=== PATIENT | female | born 1975 | race African-American/Black ===

== ENCOUNTER 2023-03-10 13:41 | Outpatient (AMB) | payer OTHER, SELFPAY ==
--- NOTE | 2023-03-10 14:17 | MHC.PC.OV ---
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 By AG~R/S Provider out Intake Note: pt does not remember her last pap pt has not had a mammo pt denies surgical hx Is last menstrual period known: Yes Last menstrual period: 02/16/23 Allergies Penicillins Allergy (Intermediate, Verified 03/10/23 23:43) Rash Medication List - Last Reconciled 03/10/23 by Mady Boothe MD lisinopril-hydrochlorothiazide 10-12.5 mg 1 tab PO DAILY metformin 1,000 mg PO BID metoprolol tartrate 50 mg PO BID Tobacco use date assessed: 03/10/23 Dental Screening Dental Screen Date: 03/10/23 Did you have a dental visit in the last 12 months?: No Did you have a dental problem in the last 6 months where you did not have access to dental care?: No Was dental information given to patient?: Patient has dentist HPI 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 No medical records available for review at present. She has hypertension currently on metoprolol and lisinopril-HCTZ, blood pressure today however is not controlled at 150/90. Takes metformin at 1000 mg per tablet taken 1 tablet twice a day for diabetes mellitus ,? Control. Complains of having intermittent episodes of diarrhea when taking metformin. He has not been checking her blood sugar at home, and has not been seen for diabetes retinopathy exam for quite some time now. Patient states that she has also been followed by Dr. Imelda Cordova for bilateral renal mass, benign per patient. [facility] Medical History (Updated 03/11/23 @ 00:01 by Mady Boothe MD) Type 2 diabetes mellitus with hyperglycemia, without long-term current use of insulin Bilateral renal masses Hypertension Hyperlipidemia Family History (Updated 03/10/23 @ 23:53 by Mady Boothe MD) Mother Mental health disorder Diabetes mellitus Father Diabetes mellitus Other Substance use disorder Social History Housing: Apartment Patient Tobacco Use Status: Never used Tobacco e-Cigarette/Vaping Use: Never Used Second Hand Smoke Exposure: No service: No Current occupational status: employed Current occupation: [employer] – [place], [place] Current occupational exposures/hazards: Yes Cognitive needs: No Hearing needs: No Vision needs: No Female Reproductive History Menstrual Date of last menstrual period: 02/16/23 control method: none Questionnaire PHQ-9 Over the last 2 weeks, how often have you been bothered by any of the following problems? 1. Little interest or pleasure in doing things: not at all 2. Feeling down, depressed, or hopeless: not at all 3. Trouble falling or staying asleep, or sleeping too much: not at all 4. Feeling tired or having little energy: not at all 5. Poor appetite or overeating: not at all 6. Feeling bad about yourself - or that you are a failure or have let yourself or your family down: not at all 7. Trouble concentrating on things, such as reading the newspaper or watching television: not at all 8. Moving or speaking so slowly that other people could have noticed. Or the opposite - being so fidgety or restless that you have been moving around a lot more than usual: not at all 9. Thoughts that you would be better off or of hurting yourself in some way: not at all Total score: 0 Depression Screening Interpretation: Negative Depression Screening Done: Yes 55193 - PHQ-9 Billing: Yes Source: Developed by Drs. Raz Merchant, Norma Meier, Paul Iglesias and colleagues, with an educational nitin from [employer] Thrive Questionnaire Date Thrive assessed: 03/10/23 I am a: Patient What is your living situation today?: I have a steady place to live Within the past 12 months, did the food you bought not last and you didn't have the money to get more?: Never true Within the past 12 months, did you worry whether your food would run out before you got money to buy more?: Never true Do you have trouble paying for medicines?: No Do you have trouble getting transportation to medical appointments?: No Do you have trouble paying your heating and electricity bill?: No Do you have trouble taking care of your child, family member or friend?: No Do you have trouble with day-to-day activities such as bathing, preparing meals, shopping, managing finances, etc.?: No Are you currently unemployed and looking for a job?: No Are you interested in more education?: No Please select the resources that you would like help with: None JORGE-7 AMB Questionnaire JORGE-7 Date JORGE - 7 assessed: 03/10/23 Feeling nervous, anxious, or on edge: 0 = Not at all Not being able to stop or control worryin = Not at all Worrying too much about different things: 0 = Not at all Trouble relaxin = Not at all Being so restless that it is hard to sit still: 0 = Not at all Becoming easily annoyed or irritable: 0 = Not at all Feeling afraid as if something awful might happen: 0 = Not at all Total JORGE-7 score (0-4 normal; 5-9 mild; 10-14 moderate; 15-21 severe): 0 Source: Developed by Drs. Raz Merchant, Norma Meier, Paul Iglesias and colleagues, with an educational nitin from [employer] JORGE-7 Assessment Billing JORGE-7 Assessment Tool: JORGE-7 Assessment 99707 Review of Systems Const Denies body aches, Denies fatigue, Denies fever(s) and Denies headache(s) Eyes Denies change in vision ENT Denies dizziness, Denies headache(s), Denies nasal congestion and Denies nasal discharge Card Denies chest pain, Denies lightheadedness, Denies palpitations and Denies dyspnea Resp Denies chest congestion, Denies cough, Denies dyspnea and Denies wheezing GI Denies abdominal pain, Denies change in bowel habits and Denies heartburn Denies hematuria, Denies urinary frequency, Denies dysuria and Denies urinary urgency Skin/Breast Denies breast pain, Denies breast mass, Denies lesions and Denies rash Neuro Denies dizziness and Denies headache(s) Endo Denies fatigue, Denies polydipsia and Denies palpitations Juan/Lymph Denies easy bruising Aller/Immun Denies seasonal rhinorrhea and Denies wheezing Physical exam (Primary Care) Vital Signs: Last Vital Signs Pulse 79 03/10/23 14:20 BP 150/90 H 03/10/23 14:20 Pulse Ox 100 03/10/23 14:20 Oxygen Delivery Method Room Air 03/10/23 14:20 BMI result Body Mass Index 29.6 Tobacco/Smoking Status: Tobacco use Status Tobacco use date assessed 03/10/23 03/10/23 14:26 Patient Tobacco Use Status Never used Tobacco 03/10/23 14:26 e-Cigarette/Vaping Use Never Used 03/10/23 14:26 PHQ-9: PHQ-9 Score PHQ-9: Total score 0 03/10/23 14:59 Depression Screening Interpretation: Negative Thrive Assessment: Date of Thrive Assessment Date Thrive assessed 03/10/23 03/10/23 14:32 Const General: comfortable, no acute distress and alert Orientation/consciousness: patient oriented x3 HENMT Ears: external ears normal General nose exam: Normal external nose present Mouth: Normal oral and palatal mucosa present, oropharynx normal and moist mucous membranes Eyes General: appearance normal, both eyes and all related structures Conjunctivae: conjunctivae normal Sclerae: sclerae normal Pupils: Equal, round and reactive pupils present EOM: EOMs intact bilaterally Neck Neck: Yes full ROM, Yes no lymphadenopathy and Yes supple Resp Effort & Inspection: normal respiratory effort Auscultation: clear to auscultation bilaterally Cardio Rate: regular rate Rhythm: regular rhythm Heart sounds: S1 normal heart sound present and S2 normal heart sound present GI Palpation (GI): Soft to palpation, nontender and no masses Auscultation: normal bowel sounds Neuro General: patient oriented x3, gait normal, tone normal, moves all extremities, Normal light touch and pain sensation and no focal motor deficits Cranial nerves: Yes Equal, round and reactive pupils present Cognition (Neuro): normal cognition Extrem General: Yes full ROM and Yes no joint enlargement Psych Appearance: grossly normal and well kempt Mental Status: mental status grossly normal Speech and movement: Normal speech and movement present Affect: normal affect Attitude: cooperative Thought process: Normal thought process present Thought content: Normal thought content present Results AMB Hemoglobin A1c AMB Hemoglobin A1c 8.7 % Last Edit by Irma Huerta CMA on 03/10/23 15:00 Results Reviewed Results Reviewed: Laboratory Last Values Hgb A1c (Clinic) 8.7 % (4.0-6.0) H 03/10/23 14:59 Assessment and Plan Assessment & Plan (1) Hypertension: Code(s): I10 - Essential (primary) hypertension Qualifiers: Hypertension type: primary hypertension Qualified Code(s): I10 - Essential (primary) hypertension Plan: Blood pressure not at goal of less than 130/80. Will continue with metoprolol tartrate 50 mg 1 tablet twice a day and lisinopril-HCTZ 10-12.5 mg 1 tablet daily in a.m.. Reinforced importance of following a low sodium diet, getting regular exercise, and lowering stress levels. Return to the clinic in 1 month for follow-up blood pressure. Labs ordered today to check compressive metabolic panel, fasting lipid panel (2) Type 2 diabetes mellitus with hyperglycemia, without long-term current use of insulin: Code(s): E11.65 - Type 2 diabetes mellitus with hyperglycemia Plan: Hemoglobin A1c today is at 8.7%. Will continue on metformin 1000 mg per tablet taken 1 tablet twice a day and added Jardiance 25 mg per tablet to take 1 tablet in a.m. an hour before breakfast or before taking medications. Labs ordered today for compressive metabolic panel, fasting lipid panel, urine for microalbuminuria screening patient declined getting any vaccines (3) Bilateral renal masses: Comment: Sees Dr. Imelda Cordova, advised to get yearly MRIs Code(s): N28.89 - Other specified disorders of kidney and ureter Plan: Followed by Dr. Imelda Cordova, r urology copy of consult report requested Plan Copy of consult report requested from previous PCP at [place] and from her urologist, Dr. Cordova Orders: Orders Microalbumin, Random (w Creat) 03/10/23 E11.9 - Type 2 diabetes mellitus without complications, E78.5 - Hyperlipidemia, unspecified, I10 - Essential (primary) hypertension AMB Hemoglobin A1c 03/10/23 E11.9 - Type 2 diabetes mellitus without complications, E78.5 - Hyperlipidemia, unspecified, I10 - Essential (primary) hypertension Comprehensive [place]. Panel Fast 03/10/23 E11.9 - Type 2 diabetes mellitus without complications, E78.5 - Hyperlipidemia, unspecified, I10 - Essential (primary) hypertension Lipid Panel 03/10/23 E11.9 - Type 2 diabetes mellitus without complications, E78.5 - Hyperlipidemia, unspecified, I10 - Essential (primary) hypertension Medications: New metoprolol tartrate 50 mg PO BID 3 months 180 tabs 0RF empagliflozin (Jardiance) 25 mg PO QAM 90 tabs 1RF E11.65 - Type 2 diabetes mellitus with hyperglycemia lisinopril-hydrochlorothiazide 10-12.5 mg 1 tab PO DAILY 90 tabs 1RF metformin 1,000 mg PO BID 3 months 180 tabs 1RF Coding Level of Care Code New Pt Level 3 (49220) Diagnoses Primary hypertension I10 Hypertension type: primary hypertension Type 2 diabetes mellitus with hyperglycemia, without long-term current use of insulin E11.65 Bilateral renal masses N28.89 Additional Codes JORGE-7 Assessment Billing - JORGE-7 Assessment Tool: JORGE-7 Assessment 80622 ([id number])
[2023-03-10 14:20] VITALS: BP 150/90; PULSE 79; O2SAT 100; BMI 29.6
== END 2023-03-10 15:31 | disposition home or self-care (01) ==
PROVIDERS: PCP Internal Medicine; Visit Provider Internal Medicine
DX: E11.9 Type 2 diabetes mellitus without complications (principal); E78.5 Hyperlipidemia, unspecified; I10 Essential (primary) hypertension
CPT/HCPCS: 83036; 99203

== ENCOUNTER 2023-03-14 15:32 | Emergency (ER) | payer OTHER, SELFPAY ==
[2023-03-14 16:29] VITALS: BP 164/96; PULSE 84; RESP 18; TEMP 37.1; O2SAT 100; BMI 30.1
--- NOTE | 2023-03-14 17:16 | ED.MEDCLEAR ---
HPI - Medical Clearance General Chief complaint: Body Fluid Exposure Stated complaint: needle stick Time Seen by Provider: 03/14/23 15:38 Source: patient and RN notes reviewed Mode of arrival: ambulatory Limitations: no limitations History of Present Illness HPI Narrative: This is a 47-year-old female, with a history of diabetes, hypertension, hyperlipidemia, and bilateral renal masses (benign, currently followed by PCP), presenting to the emergency department after needlestick. 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 She immediately rinse the area with soap and water, and allowed the area to bleed. She states that this patient that she was working with has a history of hepatitis-C, MRSA, and IV drug abuse, unsure about HIV status. No other complaints or concerns at this time. Onset (ago): minute(s) Place: work Alleged Intoxication: No Compliant with Home Medications: Yes Associated Symptoms: denies other symptoms Treatments Prior to Arrival: none Related Information Previous Rx's Medication Instructions Recorded empagliflozin 25 mg tablet 25 mg PO QAM #90 tabs 03/10/23 (Jardiance) lisinopril 10 1 tab PO DAILY #90 tabs 03/10/23 mg-hydrochlorothiazide 12.5 mg tablet metformin 1,000 mg tablet 1,000 mg PO BID 3 months #180 tabs 03/10/23 metoprolol tartrate 50 mg tablet 50 mg PO BID 3 months #180 tabs 03/10/23 Allergies Allergy/AdvReac Type Severity Reaction Status Date / Time Penicillins Allergy Intermediate Rash Verified 03/10/23 23:43 Review of Systems Review of Systems: Yes all other systems are reviewed and are negative [facility]LY [facility], [facility] Past Medical History Attestation statement: The following information was validated with the patient. Medical History Type 2 diabetes mellitus with hyperglycemia, without long-term current use of insulin Bilateral renal masses Hypertension Hyperlipidemia Family History Family History Mother Mental health disorder Diabetes mellitus Father Diabetes mellitus Other Substance use disorder Social History Housing: Apartment Patient Tobacco Use Status: Never used Tobacco e-Cigarette/Vaping Use: Never Used Second Hand Smoke Exposure: No Advance Directives: No Advance Directives Information Provided: No service: No Current occupational status: employed [place] [employer] [place] Current occupational exposures/hazards: Yes Cognitive needs: No Hearing needs: No Vision needs: No Physical Exam Vital Signs: Vital Signs: Last Vital Signs Temp 98.7 F 03/14/23 16:29 Pulse 84 03/14/23 16:29 Resp 18 03/14/23 16:29 BP 164/96 H 03/14/23 16:29 Pulse Ox 100 03/14/23 16:29 O2 Del Method Room Air 03/14/23 16:29 BMI result Body Mass Index 30.1 Course Reevaluation(s) Reevaluation #1: 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 I discussed this with patient does not want to start the antiviral treatment given this. Labs were drawn. Advised to follow-up with Infectious Disease and or primary care physician to ensure good follow-up. Given return precautions. Patient understands agrees with plan. Patient stable discharge Medications Administered Discontinued Medications Generic Name Dose Route Start Last Admin Trade Name Freq PRN Reason Stop Dose Admin Raltegravir/Emtricitabine/Tenofovir 1 kit 03/14/23 17:01 03/14/23 19:03 Post Exposure Medication Kit PO 03/14/23 17:02 Not Given ONCE ONE Medical Decision Making Medical Decision Making MDM Narrative: This is a 47-year-old female presenting to the emergency department for needlestick injury which occurred at work today. On arrival, patient mildly hypertensive at 164/96. Patient stuck her right thumb with a needle that was used on a patient positive for hepatitis-C, MRSA, and uses IV drugs. 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 Long discussion about post exposure prophylaxis with patient. She will obtain HIV status from the patient. I advised her to take the prophylaxis medication megha however she was able to contact her nursing mails supervisor and states that patient tested negative for. Differential Diagnosis Differential Diagnoses: The differential diagnosis associated with the presentation includes Laceration, puncture wound, needlestick Lab Data 03/14/23 18:35 03/14/23 18:35 Labs: Lab Results 03/14/23 Range/Units 18:35 WBC 7.6 (4.8-10.8) X10*3/uL RBC 4.96 (4.20-5.50) X10*6/uL Hgb 10.8 L (12.0-16.0) g/dl Hct 33.9 L (37.0-47.0) % MCV 68.3 L (80.0-98.0) fL MCH 21.8 L (27.0-33.0) pg MCHC 31.9 (31.0-35.0) g/dl RDW 17.1 H (11.0-16.0) % Plt Count 342 (160-400) X10*3/uL MPV 9.6 (9.4-12.3) fL Immature Gran % (Auto) 0.4 (0.0-0.4) % Neut % (Auto) 65.8 (45-73) % Lymph % (Auto) 25.0 (20-40) % H[place]eth % (Auto) 6.3 (2-11) % Eos % (Auto) 2.0 (0-4) % Baso % (Auto) 0.5 (0-2) % Lymph # (Auto) 1.9 (1.2-4.9) X10*3/uL [place] # (Auto) 0.5 (0.1-1.2) X10*3/uL Eos # (Auto) 0.2 (0.0-0.4) X10*3/uL Baso # (Auto) 0.0 (0.0-0.2) X10*3/uL Abs Immat Gran (auto) 0.03 (0.00-0.03) X10*3/uL Absolute Neuts (auto) 5.0 (2.0-8.3) x10*3/uL Absolute Nucleated RBC 0.000 (0.0-0.012) X10*3/uL Nucleated RBC % (auto) 0.0 (0.0-0.2) /100WBC Sodium 138 (135-145) mmol/L Potassium 3.9 (3.3-5.1) mmol/L Chloride 107 (96-108) mmol/L Carbon Dioxide 22 (22-29) mmol/L Anion Gap 13 (12-20) BUN 10 (9-16) mg/dL Creatinine 0.78 (0.5-1.4) mg/dL Estim Creat Clear Calc 86.7 Estimated GFR > 60 Random Glucose 119 H (60-115) mg/dL Calcium 10.0 (8.4-10.2) mg/dL Total Bilirubin 0.4 (0.0-1.0) mg/dL Direct Bilirubin 0.2 (0.0-0.5) mg/dL AST 24 (5-31) U/L ALT 29 (0-31) U/L Alkaline Phosphatase 61 (39-117) U/L Total Protein 7.9 (6.5-8.0) g/dL Albumin 4.1 (3.5-5.0) g/dL Lipase 25 (8-78) U/L Discharge Plan Discharge Clinical Impression: Exposure to body fluid due to accidental needlestick injury Patient Disposition: Home, Self-Care Instructions: Needle Stick Injuries (ED) Additional Instructions: He presented to the emergency department after needlestick injury which occurred today. We willard blood for basic labs, as well as hepatitis panel, and HIV. You declined antiviral treatment today. Please follow-up with your primary care physician. Please follow-up with Infectious Disease, call to make an appointment. If any new or worsening symptoms occur, please return for re-evaluation. Keep wound clean and dry. Watch for any signs of infection including but not limited to redness, swelling, drainage, fevers or chills. Prescriptions: No Action Jardiance 25 mg tablet 25 mg PO QAM Qty: 90 1RF lisinopril-hydrochlorothiazide 10-12.5 mg tablet 1 tab PO DAILY Qty: 90 1RF metformin 1,000 mg tablet 1,000 mg PO BID 90 Days Qty: 180 1RF metoprolol tartrate 50 mg tablet 50 mg PO BID 90 Days Qty: 180 0RF [place] [facility] [place] Group] Interventions: ED Discharge Assessment Last Done: 03/14/23 19:03 Discharge Date/Time: 03/14/23 19:04
[2023-03-14 18:44] LABS: MANUAL DIFF FLAG NO
[2023-03-14 18:46] LABS: Basophils Percent Auto 0.5 % (0-2); Eosinophils Absolute Auto 0.2 X10*3/uL (0.0-0.4); Hematocrit 33.9 % (37.0-47.0); Hemoglobin 10.8 g/dl (12.0-16.0); Imm Gran Abs Auto 0.03 X10*3/uL (0.00-0.03); Imm Gran Pct Auto 0.4 % (0.0-0.4); Lymphocytes Absolute Auto 1.9 X10*3/uL (1.2-4.9); Mean Corpuscular HGB Conc 31.9 g/dl (31.0-35.0); Mean Corpuscular Hemoglobin 21.8 pg (27.0-33.0); Mean Corpuscular Volume 68.3 fL (80.0-98.0); Mean Platelet Volume 9.6 fL (9.4-12.3); Monocytes Absolute Auto 0.5 X10*3/uL (0.1-1.2); Monocytes Percent Auto 6.3 % (2-11); Neutrophils Percent Auto 65.8 % (45-73); Platelet Count 342 X10*3/uL (160-400); Red Blood Count 4.96 X10*6/uL (4.20-5.50); Red Cell Distribution Width 17.1 % (11.0-16.0); White Blood Count 7.6 X10*3/uL (4.8-10.8)
[2023-03-14 18:59] LABS: Alanine Aminotransferase 29 U/L (0-31); Albumin Level 4.1 g/dL (3.5-5.0); Alkaline Phosphatase 61 U/L (39-117); Anion Gap 13 (12-20); Aspartate Amino Transferase 24 U/L (5-31); Bilirubin Direct 0.2 mg/dL (0.0-0.5); Bilirubin Total 0.4 mg/dL (0.0-1.0); Blood Urea Nitrogen 10 mg/dL (9-16); Carbon Dioxide 22 mmol/L (22-29); Chloride 107 mmol/L (96-108); Creatinine Clr Calc Pharmacy 86.7; Estimated Glomerular Filt Rate > 60; Glucose Random 119 mg/dL (60-115); Lipase 25 U/L (8-78); Potassium 3.9 mmol/L (3.3-5.1); Sodium 138 mmol/L (135-145); Total Protein 7.9 g/dL (6.5-8.0)
[2023-03-17 08:14] LABS: HBS Num1 8.78 mIU/mL (0-7.99); HBc Num1 0.11 S/CO (0.00-0.79); HBsAGNum1 0.33 S/CO (0.00-0.99); HIV Num 1 1.15 S/CO (0.00-0.99); Hepatitis B Core Antibody Nonreactive (Nonreactive); Hepatitis B Surface Antigen Negative (Negative); ~HepC Num1 0.45 S/CO (0.00-0.79); ~Hepatitis C Antibody Nonreactive (Nonreactive)
[2023-03-17 09:53] LABS: HBS Num2 9.17 mIU/mL (0-7.99); ~Hepatitis B Surface Antibody GRAYZONE (Nonreactive)
[2023-03-17 10:05] LABS: HIV AB/AG Nonreactive (Nonreactive); HIV Num 2 0.05 S/CO; HIV Num 3 0.06 S/CO
== END 2023-03-14 19:04 | disposition home or self-care (01) ==
PROVIDERS: Physician Assistant Medical; Emergency Provider Emergency Medicine Emergency Medical Services; PCP Internal Medicine
DX: Z77.21 Contact with and (suspected) exposure to potentially hazardous body fluids (principal); Z79.899 Other long term (current) drug therapy
CPT/HCPCS: 36415; 80048; 80076; 83690; 85025; 86704; 86706; 86803; 87340; 87389; 99282; 99283

== ENCOUNTER 2023-04-07 12:53 | Outpatient (REF) | payer OTHER, SELFPAY ==
[2023-04-07 16:32] LABS: Alanine Aminotransferase 22 U/L (0-31); Albumin Level 3.9 g/dL (3.5-5.0); Alkaline Phosphatase 61 U/L (39-117); Anion Gap 12 (12-20); Aspartate Amino Transferase 18 U/L (5-31); Bilirubin Total 0.6 mg/dL (0.0-1.0); Blood Urea Nitrogen 10 mg/dL (9-16); Carbon Dioxide 22 mmol/L (22-29); Chloride 107 mmol/L (96-108); Cholesterol 93 mg/dL (<200); Estimated Glomerular Filt Rate > 60; Glucose Fasting 135 mg/dL (60-99); HDL Cholesterol 47 mg/dL (>40); LDL Cholesterol Calculated 40 mg/dL (<100); Potassium 3.6 mmol/L (3.3-5.1); Sodium 137 mmol/L (135-145); Total Protein 7.2 g/dL (6.5-8.0); Triglycerides 30 mg/dL (<150)
[2023-04-07 17:03] LABS: Creatinine Urine 94.74 mg/dL; Microalbum/Creatinine Ratio Ur 5.2 ug/mg cr (<30)
== END 2023-04-07 12:54 | disposition home or self-care (01) ==
LOC: HO.HMGCLDS 12:53
PROVIDERS: PCP Internal Medicine; Visit Provider Internal Medicine
DX: E11.9 Type 2 diabetes mellitus without complications (principal); I10 Essential (primary) hypertension; E78.5 Hyperlipidemia, unspecified
CPT/HCPCS: 36415; 80053; 80061; 82043; 82570

== ENCOUNTER 2023-04-09 13:36 | Outpatient (AMB) | payer OTHER, SELFPAY ==
[2023-04-09 13:41] VITALS: BP 160/108; PULSE 87; O2SAT 100; BMI 29.4
--- NOTE | 2023-04-09 13:41 | MHC.PC.OV ---
Vital Signs 04/09/23 13:41 Height 5 ft 3 in Weight 166 lb 2 oz BMI 29.4 BP 160/108 H Blood Pressure Location Lt brachial Position Sitting Pulse 87 Pulse Source Pulse Oximeter Pulse Oximetry (%) 100 Oxygen Delivery Method Room Air Intake Visit Reasons: one month fu Intake Note: Pt is here to follow up for her lab results Allergies Penicillins Allergy (Intermediate, Verified 04/09/23 13:58) Rash Medication List - Last Reconciled 04/09/23 by Mady Boothe MD empagliflozin (Jardiance) 25 mg PO QAM lisinopril-hydrochlorothiazide 10-12.5 mg 1 tab PO DAILY metformin 1,000 mg PO BID 3 months metoprolol tartrate 50 mg PO BID 3 months Tobacco use date assessed: 04/09/23 HPI one month fu HPI Details 47-year-old Lady with diabetes mellitus and hypertension , here today for her 1 month follow-up. She was started on empagliflozin 25 mg daily in a.m. but still has not started taking it yet. Has only been taking metformin a 1000 mg twice a day, but complains of abdominal cramping and having passage of soft watery stools ever since she started taking metformin. Has not really been compliant with recommended diet nor has she been getting any exercise. Blood pressure today is elevated. The patient already taking lisinopril-HCTZ 10-12.5 mg daily in a.m. and has been taking metoprolol tartrate 50 mg 1 tablet twice a day. Denies any headache, no chest pain, palpitations, shortness of breath, no nausea or vomiting reported. Patient also requesting a referral to an OBGYN for further evaluation management myomatous uterus. She presented to the ER at [facility] approximately a month ago complaining of abdominal pain. CT of abdomen and pelvis were obtained which showed multiple leiomyoma in the uterus, largest measuring 4.4 x 3.3 by 3.9 cm. She has been having heavy menstrual bleed and occasionally would get 2 periods in a month. She was being seen and followed by hematology as she has sickle cell trait, recent labs done showed presence of microcytic hypochromic anemia. Patient has child who has to sickle cell trait and also was diagnosed to have beta thalassemia. [facility] Medical History Leiomyoma of body of uterus (sickle cell trait) Microcytic hypochromic anemia Type 2 diabetes mellitus with hyperglycemia, without long-term current use of insulin Bilateral renal masses Hypertension Hyperlipidemia Family History Mother Mental health disorder Diabetes mellitus Father Diabetes mellitus Other Substance use disorder Social History Housing: Apartment Patient Tobacco Use Status: Never used Tobacco e-Cigarette/Vaping Use: Never Used Second Hand Smoke Exposure: No service: No Current occupational status: employed Current occupation: [employer] – [place] Current occupational exposures/hazards: Yes Cognitive needs: No Hearing needs: No Vision needs: No Questionnaire Thrive Questionnaire Date Thrive assessed: 03/10/23 JORGE-7 AMB Questionnaire JORGE-7 Date JORGE - 7 assessed: 03/10/23 Source: Developed by Drs. Raz Merchant, Norma Meier, Paul Iglesias and colleagues, with an educational nitin from [employer]. Review of Systems Const Denies body aches, Denies fever(s) and Denies headache(s) Eyes Denies change in vision ENT Denies dizziness, Denies headache(s), Denies nasal congestion and Denies nasal discharge Card Denies chest pain, Denies lightheadedness, Denies palpitations and Denies dyspnea Resp Denies chest congestion, Denies cough, Denies dyspnea and Denies wheezing GI Denies change in bowel habits and Denies heartburn Denies hematuria, Denies urinary frequency, Denies dysuria and Denies urinary urgency Musc Reports no additional complaints Neuro Denies dizziness and Denies headache(s) Endo Denies polydipsia and Denies palpitations Juan/Lymph Denies easy bruising Aller/Immun Denies seasonal rhinorrhea and Denies wheezing Physical exam (Primary Care) Vital Signs: Last Vital Signs Pulse 87 04/09/23 13:41 BP 160/108 H 04/09/23 13:41 Pulse Ox 100 04/09/23 13:41 Oxygen Delivery Method Room Air 04/09/23 13:41 BMI result Body Mass Index 29.4 Tobacco/Smoking Status: Tobacco use Status Tobacco use date assessed 04/09/23 04/09/23 13:47 Patient Tobacco Use Status Never used Tobacco 04/09/23 13:47 e-Cigarette/Vaping Use Never Used 04/09/23 13:47 Thrive Assessment: Date of Thrive Assessment Date Thrive assessed 03/10/23 04/09/23 13:47 Const General: comfortable, no acute distress and alert Orientation/consciousness: patient oriented x3 HENMT Ears: external ears normal Mouth: Normal oral and palatal mucosa present and moist mucous membranes Eyes General: appearance normal, both eyes and all related structures Conjunctivae: conjunctivae normal Sclerae: sclerae normal Pupils: Equal, round and reactive pupils present EOM: EOMs intact bilaterally Neck Neck: Yes full ROM, Yes no lymphadenopathy and Yes supple Resp Effort & Inspection: normal respiratory effort Auscultation: clear to auscultation bilaterally Cardio Rate: regular rate Rhythm: regular rhythm Heart sounds: S1 normal heart sound present and S2 normal heart sound present GI Palpation (GI): Soft to palpation, nontender and no masses Auscultation: normal bowel sounds Neuro General: patient oriented x3, gait normal, tone normal, moves all extremities, Normal light touch and pain sensation and no focal motor deficits Cranial nerves: Yes Equal, round and reactive pupils present Cognition (Neuro): normal cognition Extrem General: Yes full ROM and Yes no joint enlargement Psych Appearance: grossly normal and well kempt Mental Status: mental status grossly normal Speech and movement: Normal speech and movement present Affect: normal affect Attitude: cooperative Thought process: Normal thought process present Thought content: Normal thought content present Assessment and Plan Assessment & Plan (1) (sickle cell trait): Code(s): D57.3 - Sickle-cell trait Plan: Hematology consult obtained (2) Microcytic hypochromic anemia: Code(s): D50.9 - Iron deficiency anemia, unspecified Plan: Hematology consult obtained (3) Type 2 diabetes mellitus with hyperglycemia, without long-term current use of insulin: Code(s): E11.65 - Type 2 diabetes mellitus with hyperglycemia Plan: Patient and advised to start taking Jardiance in a.m., decrease metformin dose in the morning to 500 mg and keep the 1000 mg tablet at dinner time. Reminded to get her diabetes retinopathy screening, up-to-date with her microalbumin screening. Advised to get her flu shot, COVID booster, pneumonia vaccination, but patient declined getting any vaccines. Schedule follow-up appointment in 3 month (4) Hypertension: Code(s): I10 - Essential (primary) hypertension Qualifiers: Hypertension type: primary hypertension Qualified Code(s): I10 - Essential (primary) hypertension Plan: Blood pressure elevated today, goal is less than 130/90. Continue with losartan-HCTZ but increase dose to 20-12.5 mg in a.m.. Continue with metoprolol tartrate , 50 mg 1 tablet twice a day. Schedule nurse navigator visit to check blood pressure in 1-2 weeks (5) Hyperlipidemia: Code(s): E78.5 - Hyperlipidemia, unspecified Qualifiers: Hyperlipidemia type: mixed hyperlipidemia Qualified Code(s): E78.2 - Mixed hyperlipidemia Plan: Hi advised to continue adhering to a low-cholesterol diet, and getting regular exercise. Repeat another fasting lipid panel in June 2023 (6) Leiomyoma of body of uterus: Comment: Multiple leiomyomas the uterus, largest measuring 4.4 x 3.3 x 3.[address] seen on CT abdomen and pelvis done in [facility] 03/03/2023 Code(s): D25.9 - Leiomyoma of uterus, unspecified Plan: Has been having heavy menstrual bleeding and irregular cycles. Referred to strategic consultant at [facility] [place] for further evaluation management of multiple leiomyomas in uterus Orders: Orders Hemoglobin A1c 06/20/23 E11.65 - Type 2 diabetes mellitus with hyperglycemia, E78.5 - Hyperlipidemia, unspecified, I10 - Essential (primary) hypertension Alanine Aminotransferase 06/20/23 E11.65 - Type 2 diabetes mellitus with hyperglycemia, E78.5 - Hyperlipidemia, unspecified, I10 - Essential (primary) hypertension Basic Metabolic Panel Fasting 06/20/23 E11.65 - Type 2 diabetes mellitus with hyperglycemia, E78.5 - Hyperlipidemia, unspecified, I10 - Essential (primary) hypertension Lipid Panel 06/20/23 E11.65 - Type 2 diabetes mellitus with hyperglycemia, E78.5 - Hyperlipidemia, unspecified, I10 - Essential (primary) hypertension Aspartate Amino Transferase 06/20/23 E11.65 - Type 2 diabetes mellitus with hyperglycemia, E78.5 - Hyperlipidemia, unspecified, I10 - Essential (primary) hypertension Referrals Hematology & Oncology Referral D50.9 - Iron deficiency anemia, unspecified, D57.3 - Sickle-cell trait 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 D25.9 - Leiomyoma of uterus, unspecified Medications: New lisinopril-hydrochlorothiazide 20-12.5 mg 1 tab PO DAILY 90 tabs 1RF Discontinued lisinopril-hydrochlorothiazide 10-12.5 mg Discontinued Reason: Doctor's Order 1 tab PO DAILY 90 tabs 1RF Coding Level of Care Code Est Pt Level 4 (54188) Diagnoses (sickle cell trait) D57.3 Microcytic hypochromic anemia D50.9 Type 2 diabetes mellitus with hyperglycemia, without long-term current use of insulin E11.65 Primary hypertension I10 Hypertension type: primary hypertension Mixed hyperlipidemia E78.2 Hyperlipidemia type: mixed hyperlipidemia Leiomyoma of body of uterus D25.9
== END 2023-04-09 14:23 | disposition home or self-care (01) ==
PROVIDERS: PCP Internal Medicine; Visit Provider Internal Medicine
DX: D57.3 Sickle-cell trait (principal); D50.9 Iron deficiency anemia, unspecified; E11.65 Type 2 diabetes mellitus with hyperglycemia; I10 Essential (primary) hypertension; E78.2 Mixed hyperlipidemia; D25.9 Leiomyoma of uterus, unspecified
CPT/HCPCS: 99214

== ENCOUNTER 2023-04-28 15:57 | Outpatient (REF) | payer OTHER, SELFPAY ==
[2023-04-28 17:19] LABS: Appearance Urine Clear; Color Urine Yellow; Glucose Urine UA >=1000 mg/dL (Negative); Leukocyte Esterase Urine Negative (Negative); Nitrite Urine Negative (Negative); PH 5.5 (5.0-9.0); Specific Gravity - Urine 1.025 (1.005-1.025); UMIC TRIGGER UACC YES; Urine Blood Negative (Negative); Urine Ketones Negative (Negative); Urine Protein Negative (Neg-Trace)
[2023-04-28 17:39] LABS: Bacteria Urine None Seen (None Seen); Hyaline Casts Urine 0-2 /LPF (0-2); RBC Urine 0-2 /HPF (0-2); Squamous Epithelial Cell Urine 0-2 /HPF (0-2); WBC Urine 0-5 /HPF (0-5)
== END 2023-04-28 15:58 | disposition home or self-care (01) ==
LOC: HO.LAB 15:57
PROVIDERS: PCP Internal Medicine; Visit Provider Internal Medicine
DX: R30.0 Dysuria (principal)
CPT/HCPCS: 81001

== ENCOUNTER → 2023-05-14 13:47 | Outpatient (BNV) | payer OTHER, SELFPAY | PROVIDERS: PCP Internal Medicine; Visit Provider Internal Medicine | DX: D50.9 Iron deficiency anemia, unspecified (principal) | CPT/HCPCS: 99204 ==

== ENCOUNTER 2023-06-02 11:08 | Outpatient (REF) | payer OTHER, SELFPAY ==
[2023-06-05 02:38] LABS: HPV mRNA E6/E7 rflx Not Detected (Not Detected)
== END 2023-06-02 11:09 | disposition home or self-care (01) ==
LOC: HO.LNP 11:08
PROVIDERS: PCP Internal Medicine; Visit Provider Obstetrics & Gynecology
DX: Z12.4 Encounter for screening for malignant neoplasm of cervix (principal); Z11.51 Encounter for screening for human papillomavirus (HPV); N93.9 Abnormal uterine and vaginal bleeding, unspecified
CPT/HCPCS: 87624; 88142

== ENCOUNTER 2023-06-02 11:08 | Outpatient (AMB) | payer OTHER, SELFPAY ==
[2023-06-02 11:14] VITALS: BP 100/66; BMI 28.2
--- NOTE | 2023-06-02 11:14 | MHC.OFFVIS ---
Intake Vital Signs 06/02/23 11:14 Height 5 ft 3 in Weight 159 lb BMI 28.2 BP 100/66 Intake Visit Reasons: LEIOMYOMA OF UTERUS/PCP referral Portal Developer: Portal Developer Present (Marsha) Allergies Penicillins Allergy (Intermediate, Verified 06/02/23 11:16) Rash Is last menstrual period known: Yes Last menstrual period: 05/18/23 HPI HPI Comments History of Present Illness Details Presenting referred from PCP regarding leiomyomas seen on imaging at [facility] Emergency room, report not available. The patient reports heavy and irregular menstrual cycles associated with passage of blood clots and pelvic cramping. Last co testing and mammogram were many years ago [facility] Medical History Leiomyoma of body of uterus (sickle cell trait) Microcytic hypochromic anemia Type 2 diabetes mellitus with hyperglycemia, without long-term current use of insulin Bilateral renal masses Hypertension Hyperlipidemia Family History Mother Mental health disorder Diabetes mellitus Father Diabetes mellitus Other Substance use disorder Social History Housing: Apartment Patient Tobacco Use Status: Never used Tobacco e-Cigarette/Vaping Use: Never Used Second Hand Smoke Exposure: No service: No Current occupational status: employed Current occupation: [employer] [place] Current occupational exposures/hazards: Yes Cognitive needs: No Hearing needs: No Vision needs: No Female Reproductive History Menstrual Date of last menstrual period: 05/18/23 Total pregnancies: 3 Full term: 3 Number of Living Children: 3 Review of Systems Const All systems reviewed & are unremarkable except as noted in HPI and below Card Reports as per HPI Resp Reports as per HPI GI Reports as per HPI and Reports no additional complaints Reports as per HPI Physical Exam Const General: cooperative, healthy appearing and comfortable Chest Chest palpation & inspection: normal inspection of the chest and normal palpation of entire chest wall Breast/axilla inspection: normal inspection of the breasts and normal inspection of the axillae Breast/axilla palpation: normal palpation of the breasts, normal palpation of the axillae and no axillary lymphadenopathy Resp Effort & Inspection: normal respiratory effort Auscultation: clear to auscultation bilaterally Percussion: percussion normal Cardio Palpation: normal PMI Rate: regular rate Rhythm: regular rhythm Heart sounds: no murmurs and no rubs Peripheral pulses: Peripheral pulses 2+ throughout GI Inspection: Yes normal to inspection Palpation (GI): Soft to palpation, nontender, no guarding, not rigid and No hepatosplenomegaly present Percussion: Yes normal to percussion Auscultation: normal bowel sounds Rectal Exam - Female: deferred General: Yes bladder normal to palpation External Female Exam: No lesion Speculum Exam - Vagina: normal appearance of the vagina, normal palpation, normal vaginal discharge and not erythematous Speculum Exam - Cervix: normal appearance of the cervix and normal palpation Bimanual exam- vagina & uterus: normal bimanual exam, normal palpation, bladder normal to palpation, consistency normal, normal palpation and enlarged Bimanual Exam- Adnexa, other: normal adnexae, no masses and no tenderness Assessment & Plan Assessment & Plan (1) Abnormal uterine bleeding: Code(s): N93.9 - Abnormal uterine and vaginal bleeding, unspecified Plan: Mammogram ordered, Co testing done, GC and chlamydia taken CBC, TSH, prolactin, FSH/LH, HCG, and pelvic ultrasound ordered. Discussed with the patient the different causes of abnormal bleeding including thyroid disorders, uterine and ovarian pathology, endometrial hyperplasia, carcinoma and other potential causes. Discussed with the patient the work up including CBC (to r/o anemia), TSH, prolactin, FSH/LH, pelvic Ultrasound, endometrial biopsy to r/o endometrial pathology. All questions answered and the patient verbalized understanding. Instructed the patient to schedule an appointment for an endometrial biopsy in 2 weeks. Orders: Orders TSH reflex Free T4 Today N93.9 - Abnormal uterine and vaginal bleeding, unspecified Complete Blood Count no Diff Today N93.9 - Abnormal uterine and vaginal bleeding, unspecified Lutenizing Hormone Today N93.9 - Abnormal uterine and vaginal bleeding, unspecified Follicle Stimulating Hormone Today N93.9 - Abnormal uterine and vaginal bleeding, unspecified Prolactin Today N93.9 - Abnormal uterine and vaginal bleeding, unspecified HCG Quantitative Today N93.9 - Abnormal uterine and vaginal bleeding, unspecified US pelvic and transvaginal Today N93.9 - Abnormal uterine and vaginal bleeding, unspecified MM screening mammo BI Today Z12.31 - Encounter for screening mammogram for malignant neoplasm of breast Coding Level of Care Code New Pt Level 3 (03259) Diagnoses Abnormal uterine bleeding N93.9
== END 2023-06-02 11:55 | disposition home or self-care (01) ==
PROVIDERS: PCP Internal Medicine; Visit Provider Obstetrics & Gynecology
DX: N93.9 Abnormal uterine and vaginal bleeding, unspecified (principal)
CPT/HCPCS: 99203

== ENCOUNTER 2023-06-02 12:07 | Outpatient (REF) | payer OTHER, SELFPAY ==
[2023-06-02 12:42] LABS: Hematocrit 37.8 % (37.0-47.0); Hemoglobin 11.8 g/dl (12.0-16.0); Mean Corpuscular HGB Conc 31.2 g/dl (31.0-35.0); Mean Corpuscular Hemoglobin 21.8 pg (27.0-33.0); Mean Corpuscular Volume 69.9 fL (80.0-98.0); Mean Platelet Volume 9.7 fL (9.4-12.3); Platelet Count 394 X10*3/uL (160-400); Red Blood Count 5.41 X10*6/uL (4.20-5.50); Red Cell Distribution Width 19.6 % (11.0-16.0); White Blood Count 7.3 X10*3/uL (4.8-10.8)
[2023-06-02 13:29] LABS: HCG Quantitative < 2 mIU/mL; TSH reflex Free T4 0.62 uIU/mL (0.32-4.0)
[2023-06-02 17:24] LABS: CT PCR NOT DETECTED (Not Detect.); NG PCR NOT DETECTED (Not Detect.)
[2023-06-03 08:14] LABS: Follicle Stimulating Hormone 2.5 mIU/mL; Lutenizing Hormone 1.2 mIU/mL; Prolactin 10.2 ng/mL
== END 2023-06-02 12:08 | disposition home or self-care (01) ==
LOC: HO.LAB 12:07
PROVIDERS: PCP Internal Medicine; Visit Provider Obstetrics & Gynecology
DX: N93.9 Abnormal uterine and vaginal bleeding, unspecified (principal); Z20.2 Contact with and (suspected) exposure to infections with a predominantly sexual mode of transmission
CPT/HCPCS: 0353U; 83001; 83002; 84146; 84443; 84702; 85027

== ENCOUNTER 2023-06-18 11:38 | Outpatient (REF) | payer OTHER, SELFPAY ==
--- NOTE | ~2023-06-18 | US_ITS ---
EXAMINATION: US PELVIS COMPLETE CLINICAL INFORMATION: Abnormal uterine bleeding; the last menstrual period is not specified. COMPARISON: None. TECHNIQUE: Transabdominal imaging was performed. FINDINGS: The uterus is of normal size and echogenicity, measuring 10.4 x 6.4 x 8.0 cm. The uterus is anteverted and anteflexed. A regular homogeneous endometrium is identified measuring 1.0 cm. There is some prominent endometrial vascularity. FIBROIDS: There are 3 fibroids seen. 1. Location: Rightward fundus, myometrial. Size: 3.5 x 3.3 x 3.3 cm. Fibroid characteristics: Heterogeneously hypoechoic. 2. Location: Mid rightward body, myometrial. Size: 1.8 x 1.7 x 1.9 cm. Fibroid characteristics: Heterogeneously hypoechoic. 3. Location: Upper leftward body, myometrial. Size: 1.9 x 1.6 x 1.8 cm. Fibroid characteristics: Heterogeneously hypoechoic. Both ovaries are of normal size and echogenicity. [The ovaries show normal doppler flow.] The right ovary measures 3.6 x 3.1 x 2.3 cm for a volume of 12.9 mL. The right ovary contains a 2.5 x 2.1 x 2.2 cm benign, simple cyst, which requires no imaging follow-up. The left ovary measures 2.7 x 1.8 x 1.8 cm for a volume of 4.6 mL. A small amount nonspecific free fluid is seen adjacent to the left ovary. No adnexal mass is seen. US/US pelvic and transvaginal IMPRESSION: 1. There are uterine fibroids, as detailed. 2. The endometrial stripe is normal in thickness and shows prominent vascular flow. 3. A small amount nonspecific free fluid is seen adjacent to the left ovary.
== END 2023-06-18 11:39 | disposition home or self-care (01) ==
LOC: HO.US 11:38
PROVIDERS: PCP Internal Medicine; Visit Provider Obstetrics & Gynecology
DX: N93.9 Abnormal uterine and vaginal bleeding, unspecified (principal)
CPT/HCPCS: 76830; 76856

== ENCOUNTER 2023-08-14 11:34 | Outpatient (AMB) | payer OTHER, SELFPAY ==
--- NOTE | 2023-08-14 11:43 | A.OFFPC_ITS ---
Vital Signs 08/14/23 11:55 Height 5 ft 3 in Weight 154 lb BMI 27.3 BP 120/86 Blood Pressure Location Rt brachial Position Sitting Pulse 73 Pulse Source Pulse Oximeter Pulse Oximetry (%) 98 Oxygen Delivery Method Room Air Intake Visit Reasons: Annual PE Intake Note: Pt is here today for her PE Last papsmear 06/03/23 Allergies Penicillins Allergy (Intermediate, Verified 08/14/23 12:09) Rash Medication List - Last Reconciled 08/14/23 by Mady Boothe MD empagliflozin (Jardiance) 25 mg PO QAM FA-vit Zqouk-P-pllt-vitamin D3 0.8-2,000 mg-unit tabs PO ferrous sulfate 325 mg PO DAILY lisinopril-hydrochlorothiazide 20-12.5 mg 1 tab PO DAILY metformin 1,000 mg PO BID 3 months metoprolol tartrate 50 mg PO BID Tobacco use date assessed: 08/14/23 Dental Screening Dental Screen Date: 08/14/23 Did you have a dental visit in the last 12 months?: No Was dental information given to patient?: Patient has dentist HPI Annual PE HPI0 Details 47-year-old Lady with diabetes mellitus type 2, hypertension and history of anemia, here today for her physical exam. She is up-to-date with her cervical cancer screening, done by Dr. Soto earlier this year. Screening mammogram was also ordered by Dr. Soto but patient has not had it done yet and will be schedule. Never had a colonoscopy. She is mildly anemic and her latest hemoglobin A1c done proximally 2 months ago came back at 6.8%, improved as compared to last check. She has received 2 COVID vaccines but does not want to get the booster, she also refuses to get her flu shot and pneumonia vaccine. Has been feeling well with no complaints at present time [facility] Medical History Leiomyoma of body of uterus (sickle cell trait) Microcytic hypochromic anemia Type 2 diabetes mellitus with hyperglycemia, without long-term current use of insulin Bilateral renal masses Hypertension Hyperlipidemia Family History Mother Mental health disorder Diabetes mellitus Father Diabetes mellitus Other Substance use disorder Social History Housing: Apartment Patient Tobacco Use Status: Never used Tobacco e-Cigarette/Vaping Use: Never Used Second Hand Smoke Exposure: No service: No Current occupational status: employed Current occupation: [employer] Current occupational exposures/hazards: Yes Cognitive needs: No Hearing needs: No Vision needs: No Questionnaire PHQ-9 Over the last 2 weeks, how often have you been bothered by any of the following problems? 1. Little interest or pleasure in doing things: not at all 2. Feeling down, depressed, or hopeless: not at all 3. Trouble falling or staying asleep, or sleeping too much: not at all 4. Feeling tired or having little energy: not at all 5. Poor appetite or overeating: not at all 6. Feeling bad about yourself - or that you are a failure or have let yourself or your family down: not at all 7. Trouble concentrating on things, such as reading the newspaper or watching television: not at all 8. Moving or speaking so slowly that other people could have noticed. Or the opposite - being so fidgety or restless that you have been moving around a lot more than usual: not at all 9. Thoughts that you would be better off or of hurting yourself in some way: not at all Total score: 0 Depression Screening Interpretation: Negative Depression Screening Done: Yes 13181 - PHQ-9 Billing: Yes Source: Developed by Drs. Raz Merchant, Norma Meier, Paul Iglesias and colleagues, with an educational nitin from [employer]. Thrive Questionnaire Date Thrive assessed: 08/14/23 I am a: Patient What is your living situation today?: I have a steady place to live Within the past 12 months, did the food you bought not last and you didn't have the money to get more?: Never true Within the past 12 months, did you worry whether your food would run out before you got money to buy more?: Never true Do you have trouble paying for medicines?: No Do you have trouble getting transportation to medical appointments?: No Do you have trouble paying your heating and electricity bill?: No Do you have trouble taking care of your child, family member or friend?: No Do you have trouble with day-to-day activities such as bathing, preparing meals, shopping, managing finances, etc.?: No Are you currently unemployed and looking for a job?: No Are you interested in more education?: No THRIVE Score: 0 AUDIT C Alcohol Use Questionnaire (AUDIT-C) 1. How often do you have a drink containing alcohol?: Never Total Score: 0 JORGE-7 AMB Questionnaire JORGE-7 Date JORGE - 7 assessed: 08/14/23 Feeling nervous, anxious, or on edge: 0 = Not at all Not being able to stop or control worryin = Not at all Worrying too much about different things: 0 = Not at all Trouble relaxin = Not at all Being so restless that it is hard to sit still: 0 = Not at all Becoming easily annoyed or irritable: 0 = Not at all Feeling afraid as if something awful might happen: 0 = Not at all Total JORGE-7 score (0-4 normal; 5-9 mild; 10-14 moderate; 15-21 severe): 0 Source: Developed by Drs. Raz Merchant, Norma Meier, Paul Iglesias and colleagues, with an educational nitin from [employer]. JORGE-7 Assessment Billing JORGE-7 Assessment Tool: JORGE-7 Assessment 26604 Review of Systems Const Denies body aches, Denies fever(s) and Denies headache(s) Eyes Denies change in vision ENT Denies dizziness, Denies headache(s), Denies nasal congestion and Denies nasal discharge Card Denies chest pain, Denies lightheadedness, Denies palpitations and Denies dyspnea Resp Denies chest congestion, Denies cough, Denies dyspnea and Denies wheezing GI Denies change in bowel habits and Denies heartburn Denies hematuria, Denies urinary frequency, Denies dysuria and Denies urinary urgency Musc Reports no additional complaints Skin/Breast Denies breast pain, Denies breast mass and Denies rash Neuro Denies dizziness and Denies headache(s) Psych Reports no additional complaints Endo Denies polydipsia and Denies palpitations Juan/Lymph Denies easy bruising Aller/Immun Denies seasonal rhinorrhea and Denies wheezing Physical exam (Primary Care) Vital Signs: Last Vital Signs Pulse 73 08/14/23 11:55 BP 120/86 08/14/23 11:55 Pulse Ox 98 08/14/23 11:55 Oxygen Delivery Method Room Air 08/14/23 11:55 BMI result Body Mass Index 27.3 Tobacco/Smoking Status: Tobacco use Status Tobacco use date assessed 08/14/23 08/14/23 12:01 Patient Tobacco Use Status Never used Tobacco 08/14/23 11:43 e-Cigarette/Vaping Use Never Used 08/14/23 11:43 Depression Screening Interpretation: Negative Thrive Assessment: Date of Thrive Assessment Date Thrive assessed 03/10/23 08/14/23 11:43 Advance Care Planning discussion: Completed/Scanned Date of discussion: 08/14/23 Who was present: Patient Forms completed: Health Care Proxy Time spent: 16-45 minutes Actual minutes spent: 16 Const General: comfortable, no acute distress and alert Orientation/consciousness: patient oriented x3 HENMT Ears: external ears normal Mouth: Normal oral and palatal mucosa present and moist mucous membranes Eyes General: appearance normal, both eyes and all related structures Conjunctivae: conjunctivae normal Sclerae: sclerae normal Pupils: Equal, round and reactive pupils present EOM: EOMs intact bilaterally Neck Neck: Yes full ROM, Yes no lymphadenopathy and Yes supple Chest Breast/axilla palpation: normal palpation of the breasts Resp Effort & Inspection: normal respiratory effort Auscultation: clear to auscultation bilaterally Cardio Rate: regular rate Rhythm: regular rhythm Heart sounds: S1 normal heart sound present and S2 normal heart sound present GI Palpation (GI): Soft to palpation, nontender and no masses Auscultation: normal bowel sounds General: Yes no CVA tenderness and Yes deferred (Up-to-date with her cervical cancer screening and pelvic exam) Back/Spine/Pelvis Back: no CVA tenderness and No back tenderness Skin General skin exam: no rashes or lesions noted Neuro General: patient oriented x3, gait normal, tone normal, moves all extremities, Normal light touch and pain sensation and no focal motor deficits Cranial nerves: Yes Equal, round and reactive pupils present Cognition (Neuro): normal cognition Extrem General: Yes full ROM and Yes no joint enlargement Psych Appearance: grossly normal and well kempt Mental Status: mental status grossly normal Speech and movement: Normal speech and movement present Affect: normal affect Attitude: cooperative Thought process: Normal thought process present Thought content: Normal thought content present Results AMB Hemoglobin A1c AMB Hemoglobin A1c 6.8 % Last Edit by Paulina Correa CMA on 08/14/23 12:09 Results Reviewed Results Reviewed: Laboratory Last Values Hgb A1c (Clinic) 6.8 % (4.0-6.0) H 08/14/23 11:53 Name: Danielle Betancur Age/Sex: 47/F : 1975 Unit#: [id number] Attend Dr: Jose Luis Soto MD Re06/02/23 Status: DEP REF Location: .LAB Disch: SPEC : [id number] ELSY: 06/02/23 STATUS: COMP REQ : [id number] RECD: 06/02/[address]: Jose Luis Soto MD COMP: 06/02/23 ENTERED: 06/02/[address]: Mady Boothe MD ORDERED: CBC No Diff Test Result Flag Reference WBC 7.3 4.8-10.8 X10*3/uL RBC 5.41 4.20-5.50 X1 0*6/uL HGB 11.8 L 12.0-16.0 g/dl HCT 37.8 37.0-47.0 % MCV 69.9 L 80.0-98.0 fL MCH 21.8 L 27.0-33.0 pg MCHC 31.2 31.0-35.0 g/dl RDW 19.6 H 11.0-16.0 % PLT 394 160-400 X10*3/uL MPV 9.7 9.4-12.3 fL NRBC Pct Auto 0.0 0.0-0.2 /100WBC N Laboratory Tests 03/10/23 08/14/23 14:59 11:53 Hgb A1c (Clinic) 8.7 H 6.8 H Assessment and Plan Assessment & Plan (1) Annual visit for general adult medical examination with abnormal findings: Code(s): Z00.01 - Encounter for general adult medical examination with abnormal findings Plan: Will check appropriate labs. Recommended dental visit every 6 months and regular eye exams, yearly for diabetes retinopathy screening, patient states she will schedule own appointment. Take adequate calcium in diet and vitamin-D 3 at 2000 IU per cap once a day, in addition to weight-bearing exercises to help maintain good muscle tone and weight control. Instructed to do self-breast exam, and recommended to get yearly mammogram, missed mammogram ordered by Dr. Soto, patient will be rescheduling appointment. Up-to-date with her cervical cancer screening. Recommended to get yearly flu shot, updated COVID booster, pneumonia vaccine and Tdap but patient declined. Referred for screening colonoscopy (2) Type 2 diabetes mellitus with hyperglycemia, without long-term current use of insulin: Code(s): E11.65 - Type 2 diabetes mellitus with hyperglycemia Plan: Improving diabetes control now with hemoglobin A1c at 6.8%. Continue with metformin 1000 mg twice a day and empagliflozin 25 mg in the morning an hour before breakfast. Reminded patient to schedule an appointment for her diabetes retinopathy screening. Declines getting any vaccines. Inspect feet for any abnormal skin lesions, calluses or ulcers that maybe forming or loss of sensation. See her back for follow-up in October 2023 . Urine ordered for microalbuminuria screening (3) Encounter for screening for malignant neoplasm of colon: Code(s): Z12.11 - Encounter for screening for malignant neoplasm of colon Plan: Referred to GI Clinic for screening colonoscopy (4) Leiomyoma of body of uterus: Comment: Multiple leiomyomas the uterus, largest measuring 4.4 x 3.3 x 3.9 cm as seen on CT abdomen and pelvis done in [facility] 03/03/2023 Code(s): D25.9 - Leiomyoma of uterus, unspecified Plan: Followed by Dr. Soto (5) (sickle cell trait): Code(s): D57.3 - Sickle-cell trait (6) Microcytic hypochromic anemia: Code(s): D50.9 - Iron deficiency anemia, unspecified Plan: Followed by Dr. Ortega, on ferrous sulfate 325 mg daily (7) Bilateral renal masses: Comment: Sees Dr. Imelda Cordova, advised to get yearly MRIs Code(s): N28.89 - Other specified disorders of kidney and ureter Plan: Sees Dr. Cordova (8) Hypertension: Code(s): I10 - Essential (primary) hypertension Qualifiers: Hypertension type: primary hypertension Qualified Code(s): I10 - Essential (primary) hypertension Plan: Blood pressure at goal of less than 130/80. Continue with lisinopril-HCTZ and metoprolol tartrate Reinforced importance of following a low sodium diet, getting regular exercise, and lowering stress levels. (9) Hyperlipidemia: Code(s): E78.5 - Hyperlipidemia, unspecified Qualifiers: Hyperlipidemia type: mixed hyperlipidemia Qualified Code(s): E78.2 - Mixed hyperlipidemia Plan: Fasting lipid panel ordered, reinforced importance of following low-cholesterol diet and getting regular exercise. Orders: Orders AMB Hemoglobin A1c 08/14/23 Z13.9 - Encounter for screening, unspecified Microalbumin, Random (w Creat) 08/14/23 E11.65 - Type 2 diabetes mellitus with hyperglycemia Referrals Gastroenterology Referral Z00.01 - Encounter for general adult medical examination with abnormal findings, Z12.11 - Encounter for screening for malignant neoplasm of colon Medications: Refilled lisinopril-hydrochlorothiazide 20-12.5 mg 1 tab PO DAILY 90 tabs 1RF Coding Level of Care Code Est Pt Prev Care 40-64y(74768) Diagnoses Annual visit for general adult medical examination with abnormal findings Z00.01 Type 2 diabetes mellitus with hyperglycemia, without long-term current use of insulin E11.65 Encounter for screening for malignant neoplasm of colon Z12.11 Leiomyoma of body of uterus D25.9 (sickle cell trait) D57.3 Microcytic hypochromic anemia D50.9 Bilateral renal masses N28.89 Primary hypertension I10 Hypertension type: primary hypertension Mixed hyperlipidemia E78.2 Hyperlipidemia type: mixed hyperlipidemia Additional Codes JORGE-7 Assessment Billing - JORGE-7 Assessment Tool: JORGE-7 Assessment 77842 ([id number]) Vital Signs *Quality* - Advance Care Planning discussion: Completed/Scanned ([id number]) Vital Signs *Quality* - Time spent: 16-45 minutes ([id number])
[2023-08-14 11:55] VITALS: BP 120/86; PULSE 73; O2SAT 98; BMI 27.3
== END 2023-08-14 12:52 | disposition home or self-care (01) ==
PROVIDERS: PCP Internal Medicine; Visit Provider Internal Medicine
DX: Z00.00 Encounter for general adult medical examination without abnormal findings (principal); E11.65 Type 2 diabetes mellitus with hyperglycemia; D57.3 Sickle-cell trait; Z12.11 Encounter for screening for malignant neoplasm of colon; D25.9 Leiomyoma of uterus, unspecified; D50.9 Iron deficiency anemia, unspecified; N28.89 Other specified disorders of kidney and ureter; I10 Essential (primary) hypertension; E78.2 Mixed hyperlipidemia
CPT/HCPCS: 1123F; 83036; 99396; 99497

== ENCOUNTER 2023-10-01 12:07 | Outpatient (AMB) | payer OTHER, SELFPAY ==
--- NOTE | 2023-10-01 12:12 | MHC.OFFVIS ---
Vital Signs 10/01/23 12:17 Height 5 ft 3 in Weight 152 lb 1.903 oz BMI 26.9 BP 118/70 Intake Visit Reasons: EMB/ U/S results [employer] Chemist Required: No Information Interpreted: non-clinical & clinical Camp Advisor: Camp Advisor Present (Denise GONZALEZ) Accompanied by: Self / Same As Patient Allergies Penicillins Allergy (Intermediate, Verified 10/01/23 12:21) Rash Is last menstrual period known: Yes Last menstrual period: 09/24/23 HPI Comments Details: Presenting for endometrial biopsy [facility] Medical History Leiomyoma of body of uterus (sickle cell trait) Microcytic hypochromic anemia Type 2 diabetes mellitus with hyperglycemia, without long-term current use of insulin Bilateral renal masses Hypertension Hyperlipidemia Family History Mother Mental health disorder Diabetes mellitus Father Diabetes mellitus Other Substance use disorder Social History Housing: Apartment Patient Tobacco Use Status: Never used Tobacco e-Cigarette/Vaping Use: Never Used Second Hand Smoke Exposure: No service: No Current occupational status: employed Current occupation: [employer] Current occupational exposures/hazards: Yes Cognitive needs: No Hearing needs: No Vision needs: No Female Reproductive History Menstrual Date of last menstrual period: 09/24/23 Review of Systems Const All systems reviewed & are unremarkable except as noted in HPI and below Reports as per HPI and Reports no additional complaints GI Reports no additional complaints Reports no additional complaints Physical Exam Vital Signs: Last Vital Signs BP 118/70 10/01/23 12:17 BMI result Body Mass Index 26.9 Office Procedures Endometrial Biopsy Details: The patient was counseled regarding the indication and benefits of endometrial sampling to rule out endometrial pathology including not limited to endometrial hyperplasia or endometrial cancer and others; The alternatives (Either do nothing vs. hysteroscopy D&C) & the risks were discussed with the patient including but not limited: pain, uterine perforation, bleeding, infection, possible injury to bladder, bowel, ureter, possible need for blood transfusion with all its possible risks. The patient verbalized understanding all questions answered and signed consent. Urine test done in the office was negative The patient was placed into the dorsal lithotomy position; a speculum was inserted in the vagina. Using aseptic technique for the procedure, the cervix was cleansed with Betadine. The anterior lip of the cervix was grasped with a single tooth tenaculum. The uterus was sounded to 10 cm with a 4 mm Pipelle was used. Tissues samples were obtained and placed in formalin, in a patient labeled container and sent to the pathology department. At the end of the procedure, there was minimal bleeding noted The patient tolerated the procedure well and was discharged in good condition with the following instructions: Nothing in the vagina until the bleeding stops. No sex until the bleeding stops, to call if any of the following occurs: fever (>100.4), flu-like symptoms, abdominal pain, heavy bleeding, four smelling vaginal discharge. The patient was instructed to schedule a Follow up appointment in 2 weeks to discuss pathology results of the biopsy and treatment options. This note was generated with a voice recognition program. Some errors may have been overlooked during the review of this note. Sometimes these errors may affect the content or meaning of a given sentence. [id number] Biopsy Results AMB Test Urine AMB Test Urine Negative Last Edit by Denise Kaur CMA on 10/01/23 12:22 Results Reviewed Results Reviewed: Laboratory Last Values Tst Clinic Negative 10/01/23 12:21 Assessment & Plan Assessment & Plan (1) Abnormal uterine bleeding: Code(s): N93.9 - Abnormal uterine and vaginal bleeding, unspecified Category: Medical Plan: EMB done, see procedure note Orders: Orders AMB Endometrial Biopsy Today N93.9 - Abnormal uterine and vaginal bleeding, unspecified AMB HCG Urine Test Today Z32.02 - Encounter for test, result negative Coding Level of Care Code Procedure Only Diagnoses Abnormal uterine bleeding N93.9 CPT Codes Endometrial Biopsy - CPT: 89388-Wctzlryccem Biopsy ([id number])
[2023-10-01 12:17] VITALS: BP 118/70; BMI 26.9
== END 2023-10-01 12:36 | disposition home or self-care (01) ==
LOC: HO.HWS 12:07
PROVIDERS: PCP Internal Medicine; Visit Provider Obstetrics & Gynecology
DX: N93.9 Abnormal uterine and vaginal bleeding, unspecified (principal); Z32.02 Encounter for pregnancy test, result negative
CPT/HCPCS: 58100

== ENCOUNTER 2023-10-01 12:07 | Outpatient (REF) | payer OTHER, SELFPAY ==
[2023-10-01 14:06] LABS: Appearance Urine Clear; Color Urine Yellow; Glucose Urine UA >=1000 mg/dL (Negative); Leukocyte Esterase Urine Negative (Negative); Nitrite Urine Negative (Negative); PH 5.5 (5.0-9.0); Specific Gravity - Urine 1.025 (1.005-1.025); UMIC TRIGGER UACC YES; Urine Blood Moderate (2+) (Negative); Urine Ketones Negative (Negative); Urine Protein Negative (Neg-Trace)
[2023-10-01 14:28] LABS: Bacteria Urine None Seen (None Seen); Hyaline Casts Urine 0-2 /LPF (0-2); RBC Urine >20 /HPF (0-2); Squamous Epithelial Cell Urine 0-2 /HPF (0-2); WBC Urine 0-5 /HPF (0-5)
[2023-10-01 14:47] LABS: Alanine Aminotransferase 15 U/L (0-31); Anion Gap 14 (12-20); Aspartate Amino Transferase 14 U/L (5-31); Blood Urea Nitrogen 11 mg/dL (9-16); Calcium 9.2 mg/dL (8.4-10.2); Carbon Dioxide 22 mmol/L (22-29); Chloride 105 mmol/L (96-108); Cholesterol 101 mg/dL (<200); Estimated Glomerular Filt Rate > 60; Glucose Fasting 224 mg/dL (60-99); HDL Cholesterol 46 mg/dL (>40); LDL Cholesterol Calculated 43 mg/dL (<100); Potassium 3.3 mmol/L (3.3-5.1); Sodium 138 mmol/L (135-145); Triglycerides 62 mg/dL (<150)
[2023-10-01 14:48] LABS: Creatinine Urine 33.01 mg/dL; Microalbumin Urine < 5.0 mg/L
== END 2023-10-01 12:08 | disposition home or self-care (01) ==
LOC: HO.LAB 12:07
PROVIDERS: Absent Provider Internal Medicine; PCP Internal Medicine; Visit Provider Obstetrics & Gynecology
DX: Z32.02 Encounter for pregnancy test, result negative (principal); E11.65 Type 2 diabetes mellitus with hyperglycemia; I10 Essential (primary) hypertension; E78.5 Hyperlipidemia, unspecified
CPT/HCPCS: 36415; 58100; 80048; 80061; 81001; 81003; 81025; 82043; 82570; 84450; 84460

== ENCOUNTER 2023-10-01 12:20 | Outpatient (REF) | payer OTHER, SELFPAY | END 2023-10-01 12:21 | disposition home or self-care (01) | LOC: HO.LNP 12:20 | PROVIDERS: Visit Provider Obstetrics & Gynecology | DX: N93.9 Abnormal uterine and vaginal bleeding, unspecified (principal) | CPT/HCPCS: 88305 ==

== ENCOUNTER 2023-11-25 13:00 | Outpatient (AMB) | payer OTHER, SELFPAY ==
[2023-11-25 13:26] VITALS: BP 124/94; PULSE 77; O2SAT 98; BMI 27.5
--- NOTE | 2023-11-25 13:26 | MHC.PC.OV ---
Vital Signs 11/25/23 13:26 Height 5 ft 3 in Weight 155 lb BMI 27.5 BP 124/94 H Blood Pressure Location Rt brachial Position Sitting Pulse 77 Pulse Source Pulse Oximeter Pulse Oximetry (%) 98 Oxygen Delivery Method Room Air Intake Visit Reasons: F/U DM Intake Note: Pt is here toay to f/u DM Allergies Penicillins Allergy (Intermediate, Verified 11/25/23 13:59) Rash Medication List - Last Reconciled 11/25/23 by Mady Boothe MD empagliflozin (Jardiance) 25 mg PO QAM FA-vit Jbpng-V-xasw-vitamin D3 0.8-2,000 mg-unit tabs PO ferrous sulfate 325 mg PO DAILY lisinopril-hydrochlorothiazide 20-12.5 mg 1 tab PO DAILY metformin 1,000 mg PO BID 3 months metoprolol tartrate 50 mg PO BID Tobacco use date assessed: 11/25/23 Dental Screening Dental Screen Date: 11/25/23 Did you have a dental visit in the last 12 months?: Yes Did you have a dental problem in the last 6 months where you did not have access to dental care?: No Was dental information given to patient?: Patient has dentist HPI F/U DM HPI Details 47-year-old lady here today for follow-up on her diabetes mellitus. She is currently taking Jardiance 25 mg 1 tablet in the morning and metformin a 1000 mg 1 tablet twice a day. He is also on lisinopril-HCTZ for hypertension control as well as metoprolol tartrate 50 mg 1 tablet twice a day. She has been feeling well, has been compliant with diet, no complaints at present time. Latest fasting labs showed hemoglobin A1c at 5.9%, last lipid level obtain 10/09/2023 showed results within normal limits. [facility] Medical History (Updated 11/25/23 @ 14:02 by Mady Boothe MD) Type 2 diabetes mellitus without complication, without long-term current use of insulin Leiomyoma of body of uterus (sickle cell trait) Microcytic hypochromic anemia Type 2 diabetes mellitus with hyperglycemia, without long-term current use of insulin Bilateral renal masses Hypertension Hyperlipidemia Family History Mother Mental health disorder Diabetes mellitus Father Diabetes mellitus Other Substance use disorder Social History Housing: Apartment Patient Tobacco Use Status: Never used Tobacco e-Cigarette/Vaping Use: Never Used Second Hand Smoke Exposure: No service: No Current occupational status: employed Current occupation: [employer] Current occupational exposures/hazards: Yes Cognitive needs: No Hearing needs: No Vision needs: No Questionnaire PHQ-9 Over the last 2 weeks, how often have you been bothered by any of the following problems? 1. Little interest or pleasure in doing things: not at all 2. Feeling down, depressed, or hopeless: not at all 3. Trouble falling or staying asleep, or sleeping too much: not at all 4. Feeling tired or having little energy: not at all 5. Poor appetite or overeating: not at all 6. Feeling bad about yourself - or that you are a failure or have let yourself or your family down: not at all 7. Trouble concentrating on things, such as reading the newspaper or watching television: not at all 8. Moving or speaking so slowly that other people could have noticed. Or the opposite - being so fidgety or restless that you have been moving around a lot more than usual: not at all 9. Thoughts that you would be better off or of hurting yourself in some way: not at all Total score: 0 Depression Screening Interpretation: Negative Depression Screening Done: Yes 23060 - PHQ-9 Billing: Yes Source: Developed by Drs. Raz Merchant, Norma Meier, Paul Iglesias and colleagues, with an educational nitin from [employer]. Thrive Questionnaire Date Thrive assessed: 11/25/23 I am a: Patient What is your living situation today?: I have a steady place to live Within the past 12 months, did the food you bought not last and you didn't have the money to get more?: Never true Within the past 12 months, did you worry whether your food would run out before you got money to buy more?: Never true Do you have trouble paying for medicines?: No Do you have trouble getting transportation to medical appointments?: No Do you have trouble paying your heating and electricity bill?: No Do you have trouble taking care of your child, family member or friend?: No Do you have trouble with day-to-day activities such as bathing, preparing meals, shopping, managing finances, etc.?: No Are you currently unemployed and looking for a job?: No Are you interested in more education?: No Please select the resources that you would like help with: Housing/[facility] Currently or been in a relationship where the following occur: No concerns reported THRIVE Score: 0 AUDIT C Alcohol Use Questionnaire (AUDIT-C) 1. How often do you have a drink containing alcohol?: Never Total Score: 0 JORGE-7 AMB Questionnaire JORGE-7 Date JORGE - 7 assessed: 11/25/23 Feeling nervous, anxious, or on edge: 0 = Not at all Not being able to stop or control worryin = Not at all Worrying too much about different things: 0 = Not at all Trouble relaxin = Not at all Being so restless that it is hard to sit still: 0 = Not at all Becoming easily annoyed or irritable: 0 = Not at all Feeling afraid as if something awful might happen: 0 = Not at all Total JORGE-7 score (0-4 normal; 5-9 mild; 10-14 moderate; 15-21 severe): 0 Source: Developed by Drs. Raz Merchant, Norma Meier, Paul Iglesias and colleagues, with an educational nitin from [employer]. JORGE-7 Assessment Billing JORGE-7 Assessment Tool: JORGE-7 Assessment 57473 Review of Systems Const Denies body aches, Denies fever(s) and Denies headache(s) Eyes Denies change in vision ENT Denies dizziness, Denies headache(s), Denies nasal congestion and Denies nasal discharge Card Denies chest pain, Denies lightheadedness, Denies palpitations and Denies dyspnea Resp Denies chest congestion, Denies cough, Denies dyspnea and Denies wheezing GI Denies change in bowel habits and Denies heartburn Denies hematuria, Denies urinary frequency, Denies dysuria and Denies urinary urgency Musc Reports no additional complaints Skin/Breast Denies breast pain, Denies breast mass and Denies rash Neuro Denies dizziness and Denies headache(s) Psych Reports no additional complaints Endo Denies polydipsia and Denies palpitations Juan/Lymph Denies easy bruising Aller/Immun Denies seasonal rhinorrhea and Denies wheezing Physical exam (Primary Care) Vital Signs: Last Vital Signs Pulse 77 11/25/23 13:26 BP 124/94 H 11/25/23 13:26 Pulse Ox 98 11/25/23 13:26 Oxygen Delivery Method Room Air 11/25/23 13:26 BMI result Body Mass Index 27.5 Tobacco/Smoking Status: Tobacco use Status Tobacco use date assessed 11/25/23 11/25/23 13:30 Patient Tobacco Use Status Never used Tobacco 11/25/23 13:30 e-Cigarette/Vaping Use Never Used 11/25/23 13:30 PHQ-9: PHQ-9 Score PHQ-9: Total score 0 11/25/23 13:59 Depression Screening Interpretation: Negative Thrive Assessment: Date of Thrive Assessment Date Thrive assessed 11/25/23 11/25/23 13:30 Currently or been in a relationship where the following occur: No concerns reported Const General: comfortable, no acute distress and alert Orientation/consciousness: patient oriented x3 HENMT Ears: external ears normal Mouth: Normal oral and palatal mucosa present and moist mucous membranes Eyes General: appearance normal, both eyes and all related structures Conjunctivae: conjunctivae normal Sclerae: sclerae normal Pupils: Equal, round and reactive pupils present EOM: EOMs intact bilaterally Neck Neck: Yes full ROM, Yes no lymphadenopathy and Yes supple Resp Effort & Inspection: normal respiratory effort Auscultation: clear to auscultation bilaterally Cardio Rate: regular rate Rhythm: regular rhythm Heart sounds: S1 normal heart sound present and S2 normal heart sound present GI Palpation (GI): Soft to palpation, nontender and no masses Auscultation: normal bowel sounds Back/Spine/Pelvis Back: No back tenderness Skin General skin exam: no rashes or lesions noted Neuro General: patient oriented x3, gait normal, tone normal, moves all extremities, Normal light touch and pain sensation and no focal motor deficits Cranial nerves: Yes Equal, round and reactive pupils present Cognition (Neuro): normal cognition Extrem General: Yes full ROM and Yes no joint enlargement Psych Appearance: grossly normal and well kempt Mental Status: mental status grossly normal Speech and movement: Normal speech and movement present Affect: normal affect Attitude: cooperative Thought process: Normal thought process present Thought content: Normal thought content present Results AMB Hemoglobin A1c AMB Hemoglobin A1c 5.9 % Last Edit by Paulina Correa CMA on 11/25/23 13:45 Results Reviewed Results Reviewed: Laboratory Last Values Hgb A1c (Clinic) 5.9 % (4.0-6.0) 11/25/23 13:34 Name: Danielle Betancur Age/Sex: 47/F : 1975 Unit#: [id number] Attend Dr: Jose Luis Soto MD Re10/01/23 Status: DEP [facility] Disch: SPEC : [id number] ELSY: 10/01/23 STATUS: COMP REQ : [id number] RECD: 10/01/[address]: Mady Boothe MD COMP: 10/01/23 ENTERED: 10/01/23-[address]: Jose Luis Soto MD ORDERED: Met Prof Fast, AST, ALT, Lipid Panel Test Result Flag Reference Sodium 138 135-145 mmol/L Potassium 3.3 3.3-5.1 mmol/L CL 105 96-108 mmol/L CO2 22 22-29 mmol/L Gap 14 12-20 BUN 11 9-16 mg/dL Creat 0.91 0.5-1.4 mg/dL EGFR > 60 NOTE: For -[place] individuals, multiply the result by 1.210. Chronic Kidney Disease: Estimated GFR < 60 mL/min/1.73m2 Severe Kidney Disease: Estimated GFR < 15 mL/min/1.73m2 FBS 224 H 60-99 mg/dL A fasting glucose of 126 mg/dl or greater on more than one occasion is considered diagnostic of diabetes. CA 9.2 8.4-10.2 mg/dL AST (GOT) 14 5-31 U/L ALT (GPT) 15 0-31 U/L Triglyceride 62 <150 mg/dL Desirable Triglyceride: less than 150 mg/dL Borderline High Triglyceride 150-199 mg/dL High Triglyceride: 200-499 mg/dL Very High Triglyceride: greater than or equal to 5OO mg/dL Cholesterol 101 <200 mg/dL Desirable Cholesterol: less than 200 mg/dL Borderline High Cholesterol: 200-239 mg/dL High Cholesterol: greater than 239 mg/dL LDL Calculated 43 <100 mg/dL Desirable LDL: less than 100 mg/dL Near Optimal/Above Optimal LDL: 110-129 mg/dL Borderline High LDL: 130-159 mg/dL High LDL: 160-189 mg/dL Very High LDL: greater than or equal to 190 mg/dL HDL 46 >40 mg/dL Desirable HDL: greater than 40 mg/dL Note: This HDL assay may give artificially low results in patients with liver disease. Assessment and Plan Assessment & Plan (1) Type 2 diabetes mellitus without complication, without long-term current use of insulin: Code(s): E11.9 - Type 2 diabetes mellitus without complications Plan: Diabetes mellitus well controlled on present treatment, continue with Jardiance and metformin in addition to adhering to high diet and getting regular exercise. Reminded to get yearly diabetes eye screening (2) Hypertension: Code(s): I10 - Essential (primary) hypertension Qualifiers: Hypertension type: primary hypertension Qualified Code(s): I10 - Essential (primary) hypertension Plan: Blood pressure at goal of less than 130/80. Continue with current medication. Reinforced importance of following a low sodium diet, getting regular exercise, and lowering stress levels. (3) Hyperlipidemia: Code(s): E78.5 - Hyperlipidemia, unspecified Qualifiers: Hyperlipidemia type: mixed hyperlipidemia Qualified Code(s): E78.2 - Mixed hyperlipidemia Plan: Reviewed recent fasting lipid profile with patient with levels within normal limits . Continue adherence to low-cholesterol diet and regular exercise, at least 30 minutes 3 to 4 times a week. Advised patient to make healthy food choices, eat more fruits, vegetables, whole grains, wild caught fish and low-fat dairy. Limit amount of meat and fried or fatty food products, as well as processed foods and fast foods. Orders: Orders AMB Hemoglobin A1c 11/25/23 E11.65 - Type 2 diabetes mellitus with hyperglycemia Coding Level of Care Code Est Pt Level 4 (19977) Complex EM visit Add On G2211 Diagnoses Type 2 diabetes mellitus without complication, without long-term current use of insulin E11.9 Primary hypertension I10 Hypertension type: primary hypertension Mixed hyperlipidemia E78.2 Hyperlipidemia type: mixed hyperlipidemia Additional Codes JORGE-7 Assessment Billing - JORGE-7 Assessment Tool: JORGE-7 Assessment 79286 ([id number])
== END 2023-11-25 15:03 | disposition home or self-care (01) ==
PROVIDERS: PCP Internal Medicine; Visit Provider Internal Medicine
DX: E11.65 Type 2 diabetes mellitus with hyperglycemia (principal)
CPT/HCPCS: 83036; 99214

== ENCOUNTER 2023-12-30 08:45 | Outpatient (AMB) | payer OTHER, SELFPAY ==
--- NOTE | 2023-12-30 08:50 | A.OFFVIS_ITS ---
Vital Signs 12/30/23 08:54 Height 5 ft 3 in Weight 154 lb 5.177 oz BMI 27.3 BP 110/72 Intake Visit Reasons: EMB results Clinical Cytopathologist Required: No Information Interpreted: non-clinical & clinical Accompanied by: Self / Same As Patient Allergies Penicillins Allergy (Intermediate, Verified 12/30/23 08:55) Rash HPI Comments Details: The patient is presenting for follow-up to discuss the results of her abnormal uterine bleeding workup and options of treatment. The following workup was done.: H&H= 11.8/37.8 TSH, hCG, prolactin, GC and chlamydia were negative. FSH/LH were 2.5/1.2 in the pre menopausal range Endometrial biopsy pathology showed the following: Benign endometrium with inactive and poorly developed secretory glands and extensive stromal breakdown; no atypia or carcinoma. Co testing was done was negative. Pelvic ultrasound showed the following: The uterus is of normal size and echogenicity, measuring 10.4 x 6.4 x 8.0 cm. The uterus is anteverted and anteflexed. A regular homogeneous endometrium is identified measuring 1.0 cm. There is some prominent endometrial vascularity. FIBROIDS: There are 3 fibroids seen. 1. Location: Rightward fundus, myometrial. Size: 3.5 x 3.3 x 3.3 cm. Fibroid characteristics: Heterogeneously hypoechoic. 2. Location: Mid rightward body, myometrial. Size: 1.8 x 1.7 x 1.9 cm. Fibroid characteristics: Heterogeneously hypoechoic. 3. Location: Upper leftward body, myometrial. Size: 1.9 x 1.6 x 1.8 cm. Fibroid characteristics: Heterogeneously hypoechoic. Both ovaries are of normal size and echogenicity. [The ovaries show normal doppler flow.] The right ovary measures 3.6 x 3.1 x 2.3 cm for a volume of 12.9 mL. The right ovary contains a 2.5 x 2.1 x 2.2 cm benign, simple cyst, which requires no imaging follow-up. The left ovary measures 2.7 x 1.8 x 1.8 cm for a volume of 4.6 mL. A small amount nonspecific free fluid is seen adjacent to the left ovary. No adnexal mass is seen. Screening mammogram not done yet [facility] Medical History Type 2 diabetes mellitus without complication, without long-term current use of insulin Leiomyoma of body of uterus (sickle cell trait) Microcytic hypochromic anemia Type 2 diabetes mellitus with hyperglycemia, without long-term current use of insulin Bilateral renal masses Hypertension Hyperlipidemia Family History Mother Mental health disorder Diabetes mellitus Father Diabetes mellitus Other Substance use disorder Social History Housing: Apartment Patient Tobacco Use Status: Never used Tobacco e-Cigarette/Vaping Use: Never Used Second Hand Smoke Exposure: No service: No Current occupational status: employed Current occupation: [employer] [place] Current occupational exposures/hazards: Yes Cognitive needs: No Hearing needs: No Vision needs: No Review of Systems Const All systems reviewed & are unremarkable except as noted in HPI and below Reports as per HPI and Reports no additional complaints GI Reports no additional complaints Reports no additional complaints Physical Exam Vital Signs: Last Vital Signs BP 110/72 12/30/23 08:54 BMI result Body Mass Index 27.3 Assessment & Plan Assessment & Plan (1) Abnormal uterine bleeding: Code(s): N93.9 - Abnormal uterine and vaginal bleeding, unspecified Category: Medical Plan: Instructions given the patient to schedule next screening mammogram megha. Discussed with the patient the results of the work up done and options of treatment including Lysteda, control pills, Mirena IUD, endometrial ablation and hysterectomy. All pros, cons, risks and benefits if each option was discussed with the patient and the patient decided to go ahead with Mirena IUD so a more detailed discussion about it was conducted including mechanism of action, risks (uterine perforation, infection, injury to bladder, bowel, displacement, and others) benefits (hypo menorrhea, amenorrhea, ...). GC/CT were taken and the patient was instructed to schedule Mirena IUD insertion on day 1-5 of next cycle . All questions answered, the patient verbalized understanding (2) Uterine myoma: Code(s): D25.9 - Leiomyoma of uterus, unspecified Category: Medical Plan: Discussed with the patient the findings on pelvic ultrasound & the risk of myosarcoma; discussed with the patient the options of treatment including expectant management versus hysterectomy; the pros and cons, risks benefits of each approach were discussed with the patient including the fact that in cases of myosarcoma, surgical treatment can lead to early diagnosis and positively affects the prognosis; after further discussion, the patient decided to proceed with expectant management. Will repeat pelvic ultrasound periodically. Instructions given to patient to call in case any of the following occurs: pressure symptoms, abnormal uterine bleeding, pelvic pain; and to schedule a six-months pelvic ultrasound and a follow-up appointment . All questions answered, the patient verbalized understanding and agreed with the plan . Orders: Orders US pelvic and transvaginal 6 Months D25.9 - Leiomyoma of uterus, unspecified Coding Level of Care Code Est Pt Level 3 (76475) Diagnoses Abnormal uterine bleeding N93.9 Uterine myoma D25.9
[2023-12-30 08:54] VITALS: BP 110/72; BMI 27.3
== END 2023-12-30 09:04 | disposition home or self-care (01) ==
LOC: HO.HWS 08:45
PROVIDERS: PCP Internal Medicine; Visit Provider Obstetrics & Gynecology
DX: N93.9 Abnormal uterine and vaginal bleeding, unspecified (principal); D25.9 Leiomyoma of uterus, unspecified
CPT/HCPCS: 99213

== ENCOUNTER → 2023-12-30 08:45 | Outpatient (BNVA) | payer OTHER, SELFPAY | PROVIDERS: PCP Internal Medicine; Visit Provider Obstetrics & Gynecology ==

== ENCOUNTER 2024-04-09 08:06 | Outpatient (REF) | payer OTHER, SELFPAY | END 2024-04-09 08:07 | disposition home or self-care (01) | LOC: HO.MAMMO 08:06 | PROVIDERS: PCP Internal Medicine; Visit Provider Internal Medicine | DX: Z12.31 Encounter for screening mammogram for malignant neoplasm of breast (principal) | CPT/HCPCS: 77063; 77067 ==

== ENCOUNTER → 2024-04-09 08:10 | Outpatient (BNV) | payer OTHER, SELFPAY | PROVIDERS: PCP Internal Medicine; Visit Provider Internal Medicine | DX: Z12.31 Encounter for screening mammogram for malignant neoplasm of breast (principal) | CPT/HCPCS: 77063; 77067 ==

== ENCOUNTER 2024-04-28 09:13 | Outpatient (AMB) | payer OTHER, SELFPAY ==
--- NOTE | 2024-04-28 09:13 | MHC.OFFVIS ---
Vital Signs 04/28/24 09:19 Height 5 ft 3 in Weight 154 lb BMI 27.3 Intake Visit Reasons: IUD Insertion Second Baller Required: No Information Interpreted: non-clinical & clinical Dispatch Manager: Dispatch Manager Present (Denise GONZALEZ) Accompanied by: Self / Same As Patient Allergies Penicillins Allergy (Intermediate, Verified 04/28/24 09:20) Rash HPI Comments Details: Presenting for Mirena IUD insertion [facility] Medical History Type 2 diabetes mellitus without complication, without long-term current use of insulin Leiomyoma of body of uterus (sickle cell trait) Microcytic hypochromic anemia Type 2 diabetes mellitus with hyperglycemia, without long-term current use of insulin Bilateral renal masses Hypertension Hyperlipidemia Family History Mother Mental health disorder Diabetes mellitus Father Diabetes mellitus Other Substance use disorder Social History Housing: Apartment Patient Tobacco Use Status: Never used Tobacco e-Cigarette/Vaping Use: Never Used Second Hand Smoke Exposure: No service: No Current occupational status: employed Current occupation: [employer] [place] Current occupational exposures/hazards: Yes Cognitive needs: No Hearing needs: No Vision needs: No Physical Exam Vital Signs: BMI result Body Mass Index 27.3 Office Procedures IUD Insert/Removal Details Details: The patient is presenting for Mirena IUD insertion Urine test was done in the office and was negative; All the contraindications were excluded. The following possible complications were discussed with the patient: Intrauterine , Ectopic , Sepsis, Pelvic Infection, Irregular Bleeding and Amenorrhea, Perforation, Expulsion, Ovarian Cysts, Breast Cancer, The following adverse effects were discussed with the patient: alteration of menstrual bleeding pattern, including: unscheduled uterine bleeding decreased uterine bleeding increased scheduled uterine bleeding female genital tract bleeding ,amenorrhea , genital discharge , vulvovaginitis , breast pain , benign ovarian cyst and associated complications , dysmenorrhea , Gastrointestinal disorders abdominal/pelvic pain, headache/migraine , back pain , acne , depression Alternative options were discussed with the patient including but not limited: control pills, patch, NuvaRing, Depo-medroxyprogesterone acetate, Nexplanon, copper IUD, sterilization, vasectomy, others The procedure was explained in detail to patient , at the end patient signed the informed consent obtained. A no touch technique was used throughout the procedure. A speculum was placed into vagina and cervix was cleaned with betadine). A tenaculum was placed. A plastic sound was advanced through the external and internal os until it reached the fundus of the uterus, the depth was 8 cm. The sound was then withdrawn. The IUD was loaded in a sterile manner and advanced into position. The string was visualized and cut to 3 cm. Tenaculum site hemostatic. All instruments removed from vagina. Patient tolerated the procedure well. NO complications were noted. Patient was instructed to call for fever over 100.4, significant pain unrelieved by Motrin, IUD expulsion, heavy bleeding, or abnormal discharge. In addition, the following clinical considerations were discussed with the patient to call for removal: A stroke or heart attack ,Very severe or migraine headaches ,Unexplained fever ,Yellowing of the skin or whites of the eyes, as these may be signs of serious liver problems , or suspected , Pelvic pain or pain during sex ,HIV positive seroconversion in herself or her partner , Possible exposure to sexually transmitted infections Unusual vaginal discharge or genital sores , severe vaginal bleeding or bleeding that lasts a long time, or if she misses a menstrual period, Inability to feel Mirena's threads Counseled the patient that the IUD does not protect against STI's, recommended use of condoms for the first 7 days post insertion and explained to the patient that condoms are recommended for patients at risk for sexually transmitted infections. Informed the patient that Mirena IUD is FDA approved for 8 years for contraception for 5 years for the treatment of heavy menses Instructed the patient to schedule a Follow up appointment in 4 to 6 weeks following insertion. This note was generated with a voice recognition program. Some errors may have been overlooked during the review of this note. Sometimes these errors may affect the content or meaning of a given sentence. [id number] Insertion Procedure code (CPT) selection complete Office Meds Mirena 21 mcg/24 hr (up to 8 years) 52 mg intrauterine device Performing Provider: Jose Luis Soto MD Performing Location: [facility] [place] [facility] Documented (not given) by: Jose Luis Soto MD on 04/28/24 09:31 Dose Route Admin Location Dispensed Lot Number Expiration Date [facility] [employer] 1 device intrauterine ea Results AMB Test Urine AMB Test Urine Negative Last Edit by Denise Kaur CMA on 04/28/24 09:19 Results Reviewed Results Reviewed: Laboratory Last Values Tst Clinic Negative 04/28/24 09:18 Assessment & Plan Assessment & Plan (1) Abnormal uterine bleeding: Code(s): N93.9 - Abnormal uterine and vaginal bleeding, unspecified Category: Medical Plan: Mirena IUD inserted, see procedure note Orders: Orders AMB HCG Urine Test Today Z32.02 - Encounter for test, result negative AMB IUD Insertion/Removal - Practice Supplied Today N93.9 - Abnormal uterine and vaginal bleeding, unspecified Medications: New Mirena (levonorgestrel) 1 device intrauterine ONCE 1 ea 0RF IUD insertion NS N93.9 - Abnormal uterine and vaginal bleeding, unspecified Coding Level of Care Code Procedure Only Diagnoses Abnormal uterine bleeding N93.9 CPT Codes Details - CPT: 73842-RFJ Insertion ([id number])
[2024-04-28 09:19] VITALS: BMI 27.3
== END 2024-04-28 09:40 | disposition home or self-care (01) ==
LOC: HO.HWS 09:13
PROVIDERS: PCP Internal Medicine; Visit Provider Obstetrics & Gynecology
DX: Z30.430 Encounter for insertion of intrauterine contraceptive device (principal); N93.9 Abnormal uterine and vaginal bleeding, unspecified; Z32.02 Encounter for pregnancy test, result negative
CPT/HCPCS: 58300

== ENCOUNTER → 2024-04-28 09:13 | Outpatient (BNVA) | payer OTHER, SELFPAY | PROVIDERS: PCP Internal Medicine; Visit Provider Obstetrics & Gynecology | DX: Z30.430 Encounter for insertion of intrauterine contraceptive device (principal); N93.9 Abnormal uterine and vaginal bleeding, unspecified | CPT/HCPCS: 58300; 81025; J7298 ==

== ENCOUNTER 2024-05-23 15:00 | Outpatient (REF) | payer OTHER, SELFPAY ==
--- NOTE | ~2024-05-23 | MR_ITS ---
EXAMINATION: MRI Abdomen without and with contrast HISTORY: NEOPLASM OF KIDNEY COMPARISON: None TECHNIQUE: Axial in and out of phase T1-weighted gradient echo, axial diffusion weighted, and axial and coronal haste T2 with fat saturation images were obtained through the abdomen. Subsequently, fat suppressed axial and coronal T1-weighted images were obtained after the intravenous administration of 8.5 mL Gadavist. FINDINGS: There is mild diffuse loss of signal intensity within the liver on opposed phase imaging, consistent with steatosis. There is no enhancing liver mass. The hepatic and portal veins are patent. There is no intra or extrahepatic biliary ductal dilatation. The gallbladder, spleen, pancreas, and adrenals are unremarkable. There is a 3.0 x 2.0 x 2.6 cm enhancing mass at the medial aspect of the interpolar region of the right kidney consistent with neoplasm. There is no left renal mass. There is no hydronephrosis. The renal veins are patent. No retroperitoneal lymphadenopathy or ascites is identified in the upper abdomen. Incidental note is made of multiple uterine fibroids measuring up to 4.0 cm in size. The visualized bones demonstrate normal marrow signal intensity. MR/MR abdomen wo/w con IMPRESSION: 1. 3.0 x 2.0 x 2.6 cm enhancing mass the medial aspect of the interpolar region of the right kidney compatible with neoplasm. Comparison with prior outside studies is recommended. 2. Hepatic steatosis. 3. Fibroid uterus. Electronically signed by: Raz Anne MD 05/24/2024 09:29 AM GLENNY
[2024-05-23] MEDS: gadobutroL 10 ML VIAL IVPUSH (16:09)
== END 2024-05-23 15:01 | disposition home or self-care (01) ==
LOC: HO.MRI 15:00
PROVIDERS: Visit Provider Physician Assistant Medical
DX: D41.00 Neoplasm of uncertain behavior of unspecified kidney (principal)
CPT/HCPCS: 74183; A9585

== ENCOUNTER → 2024-05-23 15:52 | Outpatient (BNV) | payer OTHER, SELFPAY | PROVIDERS: Visit Provider Radiology Diagnostic Radiology | DX: N28.89 Other specified disorders of kidney and ureter (principal); K76.0 Fatty (change of) liver, not elsewhere classified; D25.9 Leiomyoma of uterus, unspecified | CPT/HCPCS: 74183 ==

== ENCOUNTER 2024-06-08 12:29 | Outpatient (AMB) | payer OTHER, SELFPAY ==
--- NOTE | 2024-06-08 12:38 | A.OFFVIS_ITS ---
Vital Signs 06/08/24 12:45 Height 5 ft 3 in Weight 156 lb BMI 27.6 BP 132/72 Blood Pressure Location Lt brachial Position Sitting Intake Visit Reasons: iud check Market Sales Manager Required: No Allergies Penicillins Allergy (Intermediate, Verified 06/08/24 12:46) Rash Medication List - Last Reconciled 06/08/24 by Carolyn Dennis LPN FA-vit Gdbjo-E-zinx-vitamin D3 0.8-2,000 mg-unit tabs PO ferrous sulfate 325 mg PO DAILY Jardiance (empagliflozin) 25 mg PO QAM NS lisinopril-hydrochlorothiazide 20-12.5 mg 1 tab PO DAILY metformin 1,000 mg PO BID 3 months metoprolol tartrate 50 mg PO BID Post menopausal: No Patient : No HPI Comments Details: The patient is presenting for IUD check after 1 st period following IUD insertion. 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 [facility] Medical History Type 2 diabetes mellitus without complication, without long-term current use of insulin Leiomyoma of body of uterus (sickle cell trait) Microcytic hypochromic anemia Type 2 diabetes mellitus with hyperglycemia, without long-term current use of insulin Bilateral renal masses Hypertension Hyperlipidemia Family History Mother Mental health disorder Diabetes mellitus Father Diabetes mellitus Other Substance use disorder Social History Housing: Apartment Patient Tobacco Use Status: Never used Tobacco e-Cigarette/Vaping Use: Never Used Second Hand Smoke Exposure: No Patient : No service: No Current occupational status: employed Current occupation: [employer] Current occupational exposures/hazards: Yes Cognitive needs: No Hearing needs: No Vision needs: No Review of Systems Const All systems reviewed & are unremarkable except as noted in HPI and below Physical Exam Vital Signs: Last Vital Signs BP 132/72 06/08/24 12:45 BMI result Body Mass Index 27.6 General: Yes no CVA tenderness External Female Exam: normal external appearance and normal appearance of the urethra Speculum Exam - Vagina: normal appearance of the vagina, normal palpation, no lesions and no masses Speculum Exam - Cervix: normal appearance of the cervix, normal palpation, no lesions, no masses, nontender and Other cervical findings present (IUD string in place) Bimanual exam- vagina & uterus: normal bimanual exam, normal palpation, uterine size normal, normal palpation, uterine shape normal, No Cervical tenderness present and non-tender Bimanual Exam- Adnexa, other: normal adnexae Back/Spine/Pelvis Back: no CVA tenderness Results AMB Test Urine AMB Test Urine Negative Last Edit by Carolyn Dennis LPN on 06/08/24 12:51 Results Reviewed Results Reviewed: Laboratory Last Values Tst Clinic Negative 06/08/24 12:51 Assessment & Plan Assessment & Plan (1) IUD check up: Code(s): Z30.431 - Encounter for routine checking of intrauterine contraceptive device Category: Medical Plan: UPT done in the office was negative. Discussed with the patient the finding on physical exam, IUD string in place, the patient was reassured. Instructions given to patient to call in case of temperature above 100.4, severe cramping/pelvic pain, abnormal discharge or abnormal uterine bleeding or if she misses her menstrual cycle. Otherwise follow-up at her annual exam appointment. All questions answered, the patient verbalized understanding. Coding Level of Care Code Est Pt Level 3 (14615) Diagnoses IUD check up Z30.431
[2024-06-08 12:45] VITALS: BP 132/72; BMI 27.6
--- OUTSIDE RECORDS SUMMARY | 2024-06-08 13:22 | XMS_ITS | Clinical Summary ---
Author Organization [facility] Address [address] [place] [address] Care Team Providers Care Production Reproduction Manager Name Role Phone Sandra Faith Primary Care Provider Allergies No known active allergies Medications atovaquone-prog uaniL (MALARONE) 250-100 mg 1 tablet orally daily for 1-2 days before travel, daily during travel and for 7 days after returning home 37 tablet 1 Active Active Problems No known active problems Immunizations Immunization Administration Dates Next Due Hepatitis A Vaccine, Adult Dosage 10/09/2020 Typhoid Vi Capsular Polysaccharide Vaccine 10/09 Social History Tobacco Use Types Packs/Day Years Used Date Smoking Tobacco: Never Assessed Comments Unknown Sex and Gender Information Value Date Recorded Sex Assigned at Not on file Legal Sex Female 11:17 AM EDT Gender Identity Not on file Sexual Orientation Not on file Last Filed Vital Signs Vital Sign Reading Time Taken Comments Blood Pressure - - Pulse - - Temperature - - Respiratory Rate - - Oxygen Saturation - - Inhaled Oxygen Concentration - - Weight 72.6 kg (160 lb 0.9 oz) 10/09/2020 11:57 AM EDT Height - - Body Mass Index - - Plan of Treatment Health Maintenance Due Date Last Done Comments Cervical Cancer Screening 1974 Cologuard 1974 Colon Cancer Screening 1974 Colonoscopy 1974 FOBT / Fit Test 1974 HIV Screening 1974 HPV and Pap Smear 1974 Pap Smear 1974 Sigmoidoscopy 1974 Hepatitis B Vaccines (1 of 3 - 19+ 3-dose series) 1993 Mammogram 2014 DTaP,Tdap,and Td Vaccines (2 - Td or Tdap) 11/16/2020 11/16/2010 COVID-19 Vaccine (1 - 2023-2 5 season) 2023 Influenza Vaccine (#1) 2023 Alcohol/Substance Use Screening 04/21/2024 RSV Vaccine (60+ years old a nd patients) (1 - 1-dose 75+ series) 2049 Pneumococcal Vaccine: Pediat sona (0-5 Years) and At-Risk Patients (6-50 Years) Aged Out No longer eligible b ased on patient's age to complete this topic Insurance AETNA Care Teams Production Reproduction Manager Relationship Specialty Start Date End Date [address] [address] PCP - General 10/02/20
--- OUTSIDE RECORDS SUMMARY | 2024-06-08 13:22 | XMS_ITS | Referral Summary ---
Author Organization [facility] Address [address] [place] [address] Care Team Providers Care Generation Technician Name Role Phone Sandra Faith Primary Care Provider [phone] Allergies No known active allergies Medications atovaquone-prog uaniL (MALARONE) 250-100 mg 1 tablet orally daily for 1-2 days before travel, daily during travel and for 7 days after returning home 37 tablet Active Active Problems No known active problems [...] Mass Index - - Plan of Treatment Not on file Insurance [employer]ET[employer] Care Teams Generation Technician Relationship Specialty Start Date End Date [address] [address] PCP - General 10/02/20
--- OUTSIDE RECORDS SUMMARY | 2024-06-08 13:22 | XMS_ITS | Clinical Summary ---
Author Organization Patient Business Ser Formerly named [facility] Address [address] [place] [address] Care Team Providers Care Die Casting Machine Setter Name Role Phone Sandra Faith MD Primary Care Provider [phone] Surgical History Surgery Date Site/Laterality Comments OTHER SURGICAL HISTORY PROCEDURE: DENIES PREVIOUS SURGERY Medical History Medical History Date Comments Anxiety 11/04/2016 DX:Anxiety Depression 11/04/2016 DX:Depression Anemia 11/04/2016 DX:Anemia Hypertension DX:Hypertension Sickle-cell trait (CMS/HCC) DX:S ickle-cell trait (HCC) Diabetes mellitus type 2, uncomplicated (CMS/HCC) 11/04/2016 DX:Diabetes mellitus type 2, uncomplicated (HCC) Thrombocytosis DX:Thrombocytosi s Family History Medical History Relation Name Comments Diabetes Brother 1 Hypertension, H yperlipidemia No Known Problems Brother 2 No Known Problems Brother 3 Diabetes Father Hypertension, H yperlipidemia Diabetes Mother Hypertension, H yperlipidemia Breast cancer Neg Hx Colon cancer Neg Hx Ovarian cancer Neg Hx Relation Name Status Comments Brother 1 Alive Brother 2 Alive Brother 3 Alive Father Mother Alive Sister Alive Social History Tobacco Use Types Packs/Day Years Used Date Smoking Tobacco: Never Smokeless Tobacco: Never Alcohol Use Standard Drinks/Week Comments No 0 (1 standard drink = 0.6 oz pur e alcohol) Comments Unknown Sex and Gender Information Value Date Recorded Sex Assigned at Not on file Legal Sex Female 9:19 PM EST Gender Identity Not on file Sexual Orientation Not on file Obstetrics History Last Filed Vital Signs Vital Sign Reading Time Taken Comments Blood Pressure 104/72 02/11/2022 2:33 PM EDT Pulse 84 02/11/2022 2:33 PM EDT Temperature - - Respiratory Rate - - Oxygen Saturation - - Inhaled Oxygen Concentration - - Weight 74.5 kg (164 lb 3.2 oz) 02/11/2022 2:33 P M EDT Height 157.5 cm (5' 2 ) 02/11/2022 2:33 PM EDT Body Mass Index 30.03 02/11/2022 2:33 PM EDT Plan of Treatment Health Maintenance Due Date Last Done Comments Breast Cancer Screening 1974 Diabetes: Annual GFR (Glomer ular Filtration Rate) 1974 Diabetes: Annual Foot Exam 1984 Diabetes: Annual Retina Eye Exam 1984 DTaP,Tdap,and Td Vaccines (1 - Tdap) 1993 Hepatitis B Vaccines (1 of 3 - 19+ 3-dose series) 1993 Pneumococcal Vaccine: Pediat rics (0 to 5 Years) and At-Risk Patients (6 to 64 Years) (1 of 2 - PCV) 1993 Cervical Cancer Screening: P ap Smear 11/30/1995 Cholesterol Screening (Lipid Panel) 05/21/2019 Colorectal Cancer Screening: Colonoscopy 05/21/2019 Depression Screening 05/21/2019 HIV Screening 05/21/2019 Hepatitis C Screening 05/21/2019 Social Influencers of Health Screening 05/21/2019 Diabetes: Annual Urine Albumin-Creatinine Ratio (uACR) 03/31/2022 Diabetes: Blood Sugar Contro l Test (HGBA1C) 03/31/2022 Hypertension/CHF/CAD Annual BMP Blood Test 03/31/2022 COVID-19 Vaccine (2 - 2023-2 5 season) 2023 11/30/2020 Influenza Vaccine (#1) 2023 HIB Vaccines Aged Out No longer eligi ble based on patient's age to complete this topic HPV Vaccines Aged Out No longer eligi ble based on patient's age to complete this topic Hepatitis A Vaccines Aged Out No long er eligible based on patient's age to complete this topic IPV Vaccines Aged Out No longer eligi ble based on patient's age to complete this topic MMR Vaccines Aged Out No longer eligi ble based on patient's age to complete this topic Meningococcal ACWY Vaccine Aged Out N o longer eligible based on patient's age to complete this topic Meningococcal B Vacine Aged Out No lo nger eligible based on patient's age to complete this topic RSV Immunization Patients Un gwendolyn 20 months Aged Out No longer eligible b ased on patient's age to complete this topic Varicella Vaccines Aged Out No longer eligible based on patient's age to complete this topic Care Teams Die Casting Machine Setter Relationship Specialty Start Date End Date Sandra Faith MD PCP - General Internal Medicine 06/09/18
--- OUTSIDE RECORDS SUMMARY | 2024-06-08 13:22 | XMS_ITS | Clinical Summary ---
Author Organization [facility] Address [address] [place] [address] Care Team Providers Care Produce Manager Name Role Phone Tami Garcia AMRIK Primary Care Provider [phone] Source Comments PLEASE NOTE, if this patient is a minor, it may be UNLAWFUL to discuss sensitive information that is contained in these records (such as FAMILY PLANNING, MENTAL HEALTH or SUBSTANCE ABUSE) with the minor patient's parent or other person without the patient's specific authorization.[facility] Allergies Active Allergy Reactions Criticality Noted Date Comments Metformin Diarrhea Medium 05/11/2014 Medications lancets (BD ULTRA FINE LANCETS) 33 gauge miscIndications: Diabetes mellitus type 2, uncontrolled 1 Each by miscellaneous (misc) route once daily. 100 Each 3 01/27/20 14 Active metoprolol (LOPRESSOR) 25 mg tablet Take 1 Tab by mouth 2 (two) times daily. 60 Tab 3 09/30/19 15 Active canagliflozin (INVOKANA) 300 mg tabIndications:D iabetes mellitus type 2, uncontrolled Take 300 mg by mouth once daily. Take one tab by mouth once daily. 30 Tab 3 09/30/19 15 Active blood sugar diagnostic (FREESTYLE TEST) stripsIndication s:Diabetes mellitus type 2, uncontrolled 1 Strip once daily. 50 Each 3 09/30/19 15 Active lisinopril-hydro chlorothiazide (PRINZIDE,ZESTOR ETIC) 20-25 mg per tablet TAKE ONE TABLET BY MOUTH ONCE DAILY 30 Tab 3 07/26/19 16 Active Active Problems Problem Noted Date Diagnosed Date Needle stick injury of finger 06/15/2014 Overview (06/15/2014): Seen at [facility] 06/10/14. Diabetes mellitus type 2, uncontrolled 4 Vitamin D deficiency disease 07/23/2013 Vision problems 07/23/2013 Hepatitis B virus infection,old 07/23/2013 HTN (hypertension) 12/17/2012 Right knee pain 12/17/2012 Immunizations Name Administration Dates Next Due MENINGOCOCCAL VACCINE,CONJUGATE (NON-INTERFACE) 11/16/2010 TDAP 11/16/2010 Family History Medical History Relation Name Comments Diabetes Father Hypertension Father Diabetes Mother Hypertension Mother Relation Name Status Comments Father Mother Social History Tobacco Use Types Packs/Day Years Used Date Smoking Tobacco: Never Smokeless Tobacco: Never Alcohol Use Standard Drinks/Week Comments No 0 (1 standard drink = 0.6 oz pur e alcohol) Comments No Sex and Gender Information Value Date Recorded Sex Assigned at Not on file Legal Sex Female 11:36 AM PDT Gender Identity Not on file Sexual Orientation Not on file Last Filed Vital Signs Vital Sign Reading Time Taken Comments Blood Pressure 122/64 06/08/2014 11:29 AM EST Pulse 88 06/08/2014 11:29 AM EST Temperature 36.9 ??C (98.5 ??F) 06/08/2014 11:[address] Respiratory Rate 16 06/08/2014 11:29 AM EST Oxygen Saturation - - Inhaled Oxygen Concentration - - Weight 72.7 kg (160 lb 3.2 oz) 06/08/2014 11:29 AM EST Height 156.8 cm (5' 1.75 ) 06/08/2014 11:[address] Body Mass Index 29.54 06/08/2014 11:29 AM EST Plan of Treatment Not on file Care Teams Produce Manager Relationship Specialty Start Date End Date Tami Garcia NP [address] [place] [address] PCP - General Internal Medicine 09/15/14
== END 2024-06-08 13:17 | disposition home or self-care (01) ==
LOC: HO.HWS 12:30
PROVIDERS: Visit Provider Obstetrics & Gynecology
DX: Z30.431 Encounter for routine checking of intrauterine contraceptive device (principal)
CPT/HCPCS: 99213

== ENCOUNTER → 2024-06-08 12:29 | Outpatient (BNVA) | payer OTHER, SELFPAY | PROVIDERS: Visit Provider Obstetrics & Gynecology ==

== ENCOUNTER 2024-07-08 11:19 | Outpatient (REF) | payer OTHER, SELFPAY ==
[2024-07-08 13:06] LABS: Hematocrit 33.7 % (37.0-47.0); Hemoglobin 10.9 g/dl (12.0-16.0); Mean Corpuscular HGB Conc 32.3 g/dl (31.0-35.0); Mean Corpuscular Hemoglobin 24.2 pg (27.0-33.0); Mean Corpuscular Volume 74.9 fL (80.0-98.0); Mean Platelet Volume 9.7 fL (9.4-12.3); NRBC Pct Auto 0.3 /100WBC (0.0-0.2); Platelet Count 470 X10*3/uL (160-400); Red Cell Distribution Width 15.9 % (11.0-16.0); White Blood Count 7.2 X10*3/uL (4.8-10.8)
[2024-07-08 14:12] LABS: HCG Quantitative < 2 mIU/mL; TSH reflex Free T4 0.72 uIU/mL (0.32-4.0)
[2024-07-08 17:16] LABS: CT PCR NOT DETECTED (Not Detect.); NG PCR NOT DETECTED (Not Detect.)
== END 2024-07-08 11:20 | disposition home or self-care (01) ==
LOC: HO.LAB 11:19
PROVIDERS: PCP Internal Medicine; Visit Provider Obstetrics & Gynecology
DX: N93.9 Abnormal uterine and vaginal bleeding, unspecified (principal); Z32.02 Encounter for pregnancy test, result negative
CPT/HCPCS: 81025; 84443; 84702; 85027; 87491; 87591; 88305

== ENCOUNTER 2024-07-08 11:19 | Outpatient (AMB) | payer OTHER, SELFPAY ==
--- NOTE | 2024-07-08 11:30 | A.OFFVIS_ITS ---
Vital Signs 07/08/24 11:33 Height 5 ft 3 in Weight 156 lb BMI 27.6 BP 94/62 Intake Visit Reasons: AUB Hammer Smith: Hammer Smith Present (Tania) Accompanied by: Self / Same As Patient Allergies Penicillins Allergy (Intermediate, Verified 07/08/24 11:30) Rash HPI Comments Details: The patient is presenting complaining of recurrent heavy vaginal bleeding. The patient felt that her AUB has improved after Mirena IUD insertion in 05/15 but few weeks ago had passage of blood clots not sure if the IUD came out or not. No other symptoms Last co testing in 06/14 was negative Last mammogram in 04/13 was BI-RADS 1 Last pelvic ultrasound in 06/14 showed multiple myomas Today H&H stat was 10.9/33.7 Repeat pelvic ultrasound showed the following: Uterus: The uterus is normal in size, measuring 11.0 x 7.0 x 7.7 cm. Myometrium has a heterogeneous echotexture. Multiple fibroids are again noted including a right-sided fibroid measuring 6.1 x 5.3 x 4.0 cm (previously 3.5 x 3.3 x 3.3 cm), left uterine body fibroids measuring 2.1 x 2.3 x 2.1 cm (previously 1.9 x 1.6 x 1.8 cm), and 2.7 x 2.1 x 2.2 cm (previously 1.8 x 1.7 x 1.9 cm), and a new left fundal fibroid measuring 0.7 x 0.7 x 1.0 cm. Endometrium: The endometrial stripe measures 7 mm in thickness and appears hypervascular. The patient reports placement of an IUD in April,. However, no IUD is identified. Right ovary: The right ovary measures 2.7 x 1.6 x 2.3 cm. The right ovary is normal in size and echotexture. Left ovary: The left ovary measures 3.7 x 1.8 x 1.6 cm. The left ovary is normal in size and echotexture. Pelvic fluid: none. [facility] Medical History Type 2 diabetes mellitus without complication, without long-term current use of insulin Leiomyoma of body of uterus (sickle cell trait) Microcytic hypochromic anemia Type 2 diabetes mellitus with hyperglycemia, without long-term current use of insulin Bilateral renal masses Hypertension Hyperlipidemia Family History Mother Mental health disorder Diabetes mellitus Father Diabetes mellitus Other Substance use disorder Social History Housing: Apartment Patient Tobacco Use Status: Never used Tobacco e-Cigarette/Vaping Use: Never Used Second Hand Smoke Exposure: No service: No Current occupational status: employed Current occupation: [employer] [place] Current occupational exposures/hazards: Yes Cognitive needs: No Hearing needs: No Vision needs: No Review of Systems Const All systems reviewed & are unremarkable except as noted in HPI and below Physical Exam Vital Signs: Last Vital Signs BP 94/62 07/08/24 11:33 BMI result Body Mass Index 27.6 General: Yes no CVA tenderness External Female Exam: normal external appearance and normal appearance of the urethra Speculum Exam - Vagina: normal appearance of the vagina, normal palpation, no lesions and no masses Speculum Exam - Cervix: normal appearance of the cervix, normal palpation, no lesions, no masses, nontender and Other cervical findings present (No IUD string seen, no active bleeding) Bimanual exam- vagina & uterus: normal bimanual exam, normal palpation, uterine size normal, normal palpation, uterine shape normal, No Cervical tenderness present and non-tender Bimanual Exam- Adnexa, other: normal adnexae Back/Spine/Pelvis Back: no CVA tenderness Results AMB Test Urine AMB Test Urine Negative Last Edit by Denise Kaur CMA on 12:04 Results Reviewed Results Reviewed: Laboratory Last Values Tst Clinic Negative 07/08/24 12:03 Assessment & Plan Assessment & Plan (1) Abnormal uterine bleeding: Comment: Enlarging uterine myoma Code(s): N93.9 - Abnormal uterine and vaginal bleeding, unspecified Category: Medical Plan: UPT done in the office was negative. GC/CT taken. H&H stat was 10.9/33.7, TSH and hCG and a pelvic ultrasound. EMB done, see procedure note Discussed with the patient the findings on pelvic ultrasound with increasing size myomas & the risk of myosarcoma; in addition reviewed with the patient that malignancy and pre malignancy cannot be ruled out without hysterectomy for pathological evaluation ; furthermore, explained to the patient the limitation of pelvic ultrasound and endometrial biopsy in the setting. Discussed with the patient the typical symptoms that are caused by myomas including but not limited to pelvic pain, pressure symptoms, abnormal uterine bleeding. In addition discussed with the patient options of treatment for myomas including: Serial ultrasounds periodically to follow-up on the size of the myoma while targeting the treatment against fibroids related symptoms ( control pills, Mirena IUD, progesterone treatment, GnRH agonist/antagonist, uterine artery embolization or endometrial ablation) versus surgical treatment including hysterectomy. All pros and cons, risks and benefits of all options were discussed with the patient. The patient understands that delay in surgical treatment in case of myosarcoma can affect her prognosis, after further discussion, the patient decided to proceed with surgical management. Discussed with the patient the different types of hysterectomies including, vaginal, laparoscopic assisted vaginal, robotic assisted laparoscopic,& abdominal with BSO. All pros, cons, r/b of each approach were discussed the patient including evidence that morbidity is less and recovery is shorter with minimally invasive approaches to hysterectomy. Discussed with the patient the lack of availability of the robot Bulu Boxi robot and/or minimally invasive wind turbine engineer specialist at [facility]. Will refer to [facility], minimally invasive swing tender surgery. Will start the patient on Provera 10 mg p.o. q.d., instructions given the patient to call or go to emergency room in case of heavy vaginal bleeding and to schedule a 2 week EMB follow-up appointment Instructed the patient to call our office back in case a referral appointment is not scheduled, missed or canceled so that we will assist on rescheduling another appointment, the patient verbalized understanding agreed with the plan. (2) IUD strings lost: Code(s): T83.32XA - Displacement of intrauterine contraceptive device, initial encounter Category: Medical Plan: Pelvic ultrasound ordered stat showed no evidence of IUD and increase in the myomas, discussed with the patient the finding on ultrasound, will start with Provera 10 mg p.o. q.d., instructions given the patient to call or go to emergency in case of heavy vaginal bleeding Orders: Orders Complete Blood Count no Diff Today N93.9 - Abnormal uterine and vaginal bleeding, unspecified AMB HCG Urine Test Today Z32.02 - Encounter for test, result negative AMB Endometrial Biopsy Today N93.9 - Abnormal uterine and vaginal bleeding, unspecified US pelvic and transvaginal Today N93.9 - Abnormal uterine and vaginal bleeding, unspecified, T83.32XA - Displacement of intrauterine contraceptive device, initial encounter CT NG by PCR Today N93.9 - Abnormal uterine and vaginal bleeding, unspecified Surgical Today N93.9 - Abnormal uterine and vaginal bleeding, unspecified HCG Quantitative Today N93.9 - Abnormal uterine and vaginal bleeding, unspecified TSH reflex Free T4 Today N93.9 - Abnormal uterine and vaginal bleeding, unspecified Medications: New medroxyprogesterone (Provera) start Provera 1 tablet daily 10 mg PO DAILY 10 days 30 tabs 1RF Coding Level of Care Code Est Pt Level 3 (36947) Procedure Only Diagnoses Abnormal uterine bleeding N93.9 IUD strings lost T83.32XA
[2024-07-08 11:33] VITALS: BP 94/62; BMI 27.6
== END 2024-07-08 12:25 | disposition home or self-care (01) ==
PROVIDERS: Visit Provider Obstetrics & Gynecology
DX: N93.9 Abnormal uterine and vaginal bleeding, unspecified (principal); T83.32XA Displacement of intrauterine contraceptive device, initial encounter; Z32.02 Encounter for pregnancy test, result negative
CPT/HCPCS: 99213

== ENCOUNTER 2024-07-08 12:11 | Outpatient (REF) | payer OTHER, SELFPAY ==
--- NOTE | ~2024-07-08 | US_ITS ---
EXAMINATION: US PELVIS TRANSABDOMINAL AND TRANSVAGINAL HISTORY: T83.32XA - Displacement of intrauterine contraceptive device, initial en... COMPARISON: Comparison is made with the prior examination dated 06/10/2023. TECHNIQUE: Transabdominal and endovaginal real-time 2D crockett-scale ultrasound was performed. FINDINGS: Uterus: The uterus is normal in size, measuring 11.0 x 7.0 x 7.7 cm. Myometrium has a heterogeneous echotexture. Multiple fibroids are again noted including a right-sided fibroid measuring 6.1 x 5.3 x 4.0 cm (previously 3.5 x 3.3 x 3.3 cm), left uterine body fibroids measuring 2.1 x 2.3 x 2.1 cm (previously 1.9 x 1.6 x 1.8 cm), and 2.7 x 2.1 x 2.2 cm (previously 1.8 x 1.7 x 1.9 cm), and a new left fundal fibroid measuring 0.7 x 0.7 x 1.0 cm. Endometrium: The endometrial stripe measures 7 mm in thickness and appears hypervascular. The patient reports placement of an IUD in April,. However, no IUD is identified. Right ovary: The right ovary measures 2.7 x 1.6 x 2.3 cm. The right ovary is normal in size and echotexture. Left ovary: The left ovary measures 3.7 x 1.8 x 1.6 cm. The left ovary is normal in size and echotexture. Pelvic fluid: none. US/US pelvic and transvaginal IMPRESSION: 1. Fibroid uterus as described. All visualized fibroids appear slightly larger than on the prior study. 2. Hypervascular endometrial stripe. No IUD is identified. Electronically signed by: Raz Anne MD 07/08/2024 01:33 PM EDT
--- OUTSIDE RECORDS SUMMARY | 2024-07-08 14:36 | XMS_ITS | Encounter Summary ---
Author Organization [facility] Address [address] [place] [address] Care Team Providers Care Tool Design Engineer Name Role Phone Sandra Pettit MD Primary Care Provider U Sandra Elise MD Unavailable Unavail able Encounter Details Date Type Department Care Team Description 03/26/2021 Orders Only Radiology - [address] [address] Katalina Nixon APRN Diabetes mellitus without complication (HCC) (Primary Dx) Social History Tobacco Use Types Packs/Day Years Used Date Smoking Tobacco: Never Smokeless Tobacco: Never Alcohol Use Standard Drinks/Week Comments No 0 (1 standard drink = 0.6 oz pur e alcohol) Sex Assigned at Date Recorded Not on file Job Start Date Occupation Industry Not on file Not on file Not on file COVID-19 Exposure Response Date Recorded In the last month, have you been in contact with someone who was confirmed or suspected to have Coronavirus / COVID-19? No / Unsure 03/28/2021 1:59 PM EST documented as of this encounter Plan of Treatment Not on file documented as of this encounter Visit Diagnoses Diagnosis Diabetes mellitus without complication (HCC)- Primary Type II or unspecified type diabetes mellitus without mention of complication, not stated as uncontrolled documented in this encounter Care Teams Tool Design Engineer Relationship Specialty Start Date End Date Sandra Pettit MD PCP - General Internal Medicine 06/09/18 Sandra Pettit MD Internal Medicine 06/09/18 documented as of this encounter
--- OUTSIDE RECORDS SUMMARY | 2024-07-08 14:36 | XMS_ITS | Encounter Summary ---
Author Organization [facility] Address [address] [place] [address] Care Team Providers Care Lead Material Handler Name Role Phone Sandra Pettit MD Primary Care Provider U jarochoailSandra Gonzales MD Unavailable Unavail able Reason for Referral * Non GATO (Routine) - Unable to reach/declined Specialty Diagnoses / Procedures Referred By Contact Referred To Contact Oncology/Hematology Procedures REFERRAL TO ONCOLOGY/HEMATOLOGY (IN NETWORK) Sandra Pettit MD [address] [place] [address] Rhoda Moreno MD [facility] [address] [place] [phone] Referral ID Status Reason Start Date Expiration Date V isits Requested Visits Authorized [id number] Unable to reach/declin ed 07/07/2019 07/06/2020 99 99 Encounter Details Date Type Department Care Team Description 07/07/2019 Orders Only Adult Medicine B - [address] [address] Sandra Pettit MD Social History Tobacco Use Types Packs/Day Years Used Date Smoking Tobacco: Never Smokeless Tobacco: Never Alcohol Use Standard Drinks/Week Comments No 0 (1 standard drink = 0.6 oz pur e alcohol) Sex Assigned at Date Recorded Not on file Job Start Date Occupation Industry Not on file Not on file Not on file documented as of this encounter Plan of Treatment Not on file documented as of this encounter Visit Diagnoses Not on filedocumented in this encounter Care Teams Lead Material Handler Relationship Specialty Start Date End Date Sandra Pettit MD PCP - General Internal Medicine 06/09/18 Sandra Pettit MD Internal Medicine 06/09/18 documented as of this encounter
== END 2024-07-08 12:12 | disposition home or self-care (01) ==
LOC: HO.US 12:11
PROVIDERS: PCP Internal Medicine; Visit Provider Obstetrics & Gynecology
DX: T83.32XA Displacement of intrauterine contraceptive device, initial encounter (principal); N93.9 Abnormal uterine and vaginal bleeding, unspecified
CPT/HCPCS: 76830; 76856

== ENCOUNTER → 2024-07-08 12:35 | Outpatient (BNV) | payer OTHER, SELFPAY | PROVIDERS: PCP Internal Medicine; Visit Provider Radiology Diagnostic Radiology | DX: D25.9 Leiomyoma of uterus, unspecified (principal) | CPT/HCPCS: 76830; 76856 ==

== ENCOUNTER 2024-07-23 16:07 | Outpatient (AMB) | payer OTHER, SELFPAY ==
--- NOTE | 2024-07-23 16:07 | A.OFFVIS_ITS ---
Intake Visit Reasons: EMB results Allergies Penicillins Allergy (Intermediate, Verified 07/08/24 11:30) Rash HPI Comments Details: The patient scheduled a telehealth visit for follow-up to discuss the results of her abnormal uterine bleeding workup and options of treatment. The following workup was done.: H&H= 10.9/33.7 TSH, hCG, GC and chlamydia were negative. Endometrial biopsy pathology showed the following: Endometrium, biopsy: - Superficial fragments of benign endometrium with breakdown; abundant blood clot. - Fragments of endocervical tissue within normal limits. - No atypia identified. Co testing was done in 06/14 was negative. Mammogram was done in 04/13 was BI-RADS 1. Pelvic ultrasound showed the following: Uterus: The uterus is normal in size, measuring 11.0 x 7.0 x 7.7 cm. Myometrium has a heterogeneous echotexture. Multiple fibroids are again noted including a right-sided fibroid measuring 6.1 x 5.3 x 4.0 cm (previously 3.5 x 3.3 x 3.3 cm), left uterine body fibroids measuring 2.1 x 2.3 x 2.1 cm (previously 1.9 x 1.6 x 1.8 cm), and 2.7 x 2.1 x 2.2 cm (previously 1.8 x 1.7 x 1.9 cm), and a new left fundal fibroid measuring 0.7 x 0.7 x 1.0 cm. Endometrium: The endometrial stripe measures 7 mm in thickness and appears hypervascular. The patient reports placement of an IUD in April,. However, no IUD is identified. Right ovary: The right ovary measures 2.7 x 1.6 x 2.3 cm. The right ovary is normal in size and echotexture. Left ovary: The left ovary measures 3.7 x 1.8 x 1.6 cm. The left ovary is normal in size and echotexture. Pelvic fluid: none. [facility] Medical History Type 2 diabetes mellitus without complication, without long-term current use of insulin Leiomyoma of body of uterus (sickle cell trait) Microcytic hypochromic anemia Type 2 diabetes mellitus with hyperglycemia, without long-term current use of insulin Bilateral renal masses Hypertension Hyperlipidemia Family History Mother Mental health disorder Diabetes mellitus Father Diabetes mellitus Other Substance use disorder Social History Housing: Apartment Patient Tobacco Use Status: Never used Tobacco e-Cigarette/Vaping Use: Never Used Second Hand Smoke Exposure: No service: No Current occupational status: employed Current occupation: [employer] Current occupational exposures/hazards: Yes Cognitive needs: No Hearing needs: No Vision needs: No Telehealth Telehealth Telehealth Platform: Telephone Location of provider rendering services: practice address Location of patient: address on file Patient Identification confirmed using: Name, : Yes Telehealth method: video Patient verbally consented to treatment: Yes Patient verbally consented to billing insurance company: Yes Patient informed of any privacy concerns related to visit: Yes Minutes spent on Phone/Video with Pt.: 7 Assessment & Plan Assessment & Plan (1) Abnormal uterine bleeding: Comment: Enlarging uterine myoma Code(s): N93.9 - Abnormal uterine and vaginal bleeding, unspecified Category: Medical Plan: Recommended for the patient to stay on Provera 10 mg p.o. q.d., refill sent to the patient's pharmacy. Discussed with the patient the results of the work up done and options of treatment including Lysteda, BCP's, Mirena IUD, endometrial ablation and hysterectomy. All pros, cons, risks and benefits if each option was discussed with the patient and the patient decided to treat with definitive surgical management. Discussed with the patient the different types of hysterectomies including, vaginal, laparoscopic assisted vaginal, robotic assisted laparoscopic,& abdominal with BSO. All pros, cons, r/b of each approach were discussed the patient including evidence that morbidity is less and recovery is shorter with minimally invasive approaches to hysterectomy. Discussed with the patient the lack of availability of the robot DaVinci robot and/or minimally invasive firepot operator and tender specialist at [facility]. Will refer to [facility] minimally invasive professional fighter surgery. Instructed the patient to call our office back in case a referral appointment is not scheduled, missed or canceled so that we will assist on rescheduling another appointment, the patient verbalized understanding agreed with the plan. I spent a total of 20 minutes reviewing the chart, talking to the patient via video and documenting in the medical record. Coding Level of Care Code Tele Est Pt Level 3 (68064) Diagnoses Abnormal uterine bleeding N93.9
--- OUTSIDE RECORDS SUMMARY | 2024-07-23 16:59 | XMS_ITS | Clinical Summary ---
Author Organization [facility] Address [address] [place] [address] Care Team Providers Care Retort Condenser Attendant Name Role Phone Sandra Faith Primary Care Provider [phone] Allergies No known active allergies Medications atovaquone-prog [...] of 3 - 19+ 3-dose series) 1993 DTaP,Tdap,and Td Vaccines (2 - Td or Tdap) 11/16/2020 11/16/2010 COVID-19 Vaccine (1 - 2023-2 5 season) 2023 Alcohol/Substance Use Screening 04/21/2024 Influenza Vaccine (Season Ended) 2024 RSV Vaccine (60+ years old a nd patients) (1 - 1-dose 75+ series) 2049 Pneumococcal Vaccine: Pediat sona (0-5 Years) and At-Risk Patients (6-50 Years) Aged Out No longer eligible b ased on patient's age to complete this topic Insurance AETNA Care Teams Retort Condenser Attendant Relationship Specialty Start Date End Date [address] [address] PCP - General 10/02/20
--- OUTSIDE RECORDS SUMMARY | 2024-07-23 16:59 | XMS_ITS | Referral Summary ---
Author Organization [facility] Address [address] [place] [address] Care Team Providers Care Cashier General Name Role Phone Sandra Faith Primary Care Provider [phone] Allergies No known active allergies Medications atovaquone-prog [...] Not on file Insurance AETNA Care Teams Cashier General Relationship Specialty Start Date End Date [address] [address] PCP - General 10/02/20
--- OUTSIDE RECORDS SUMMARY | 2024-07-23 16:59 | XMS_ITS | Clinical Summary ---
Author Organization Patient Business Ser [facility] Address [address] [place] [address] Care Team Providers Care Jacket Preparer Name Role Phone Sandra Faith MD Primary Care Provider [phone] Surgical History Surgery Date Site/Laterality Comments OTHER SURGICAL HISTORY PROCEDURE: DENIES PREVIOUS SURGERY Medical History Medical History Date Comments Anxiety 11/04/2016 DX:Anxiety Depression 11/04/2016 DX:Depression Anemia 11/04/2016 DX:Anemia Hypertension DX:Hypertension Sickle-cell trait (CMS/HCC) DX:S ickle-cell trait (HCC) Diabetes mellitus type 2, uncomplicated 11/04/2016 DX:Diabetes mellitus type 2, uncomplicated (HCC) [...] Annual BMP Blood Test 03/31/2022 COVID-19 Vaccine ( - 2023-2 5 season) 2023 11/30/2020 Influenza [...] age to complete this topic Care Teams Jacket Preparer Relationship Specialty Start Date End Date Sandra Faith MD PCP - General Internal Medicine 06/09/18
--- OUTSIDE RECORDS SUMMARY | 2024-07-23 16:59 | XMS_ITS | Clinical Summary ---
Author Organization [facility] Address [address] [place] [address] Care Team Providers Care Welfare Service Aide Name Role Phone Tami Garcia AMRIK Primary Care Provider [phone] Source Comments PLEASE NOTE, if this patient [...] of finger 06/15/2014 Overview (06/15/2014): [facility]. Diabetes mellitus type 2, uncontrolled 4 Vitamin D deficiency disease 07/23/2013 Vision problems 07/23/2013 Hepatitis B virus infection,old 07/23/2013 HTN (hypertension) 12/17/2012 Right knee pain 12/17/2012 Immunizations Immunization Administration Dates Next Due MENINGOCOCCAL VACCINE,CONJUGATE (NON-INTERFACE) [...] of Treatment Not on file Care Teams Welfare Service Aide Relationship Specialty Start Date End Date Tami Garcia NP [address] [place] [address] PCP - General Internal Medicine 09/15/14
== END 2024-07-23 18:37 | disposition home or self-care (01) ==
LOC: HO.HWS 16:07
PROVIDERS: PCP Internal Medicine; Visit Provider Obstetrics & Gynecology
DX: N93.9 Abnormal uterine and vaginal bleeding, unspecified (principal)
CPT/HCPCS: 99213

== ENCOUNTER 2024-08-25 10:44 | Outpatient (REF) | payer OTHER, SELFPAY ==
[2024-08-25 10:55] LABS: MANUAL DIFF FLAG NO
[2024-08-25 11:47] LABS: Basophils Percent Auto 0.6 % (0-2); Eosinophils Absolute Auto 0.1 X10*3/uL (0.0-0.4); Eosinophils Percent Auto 2.1 % (0-4); Hematocrit 34.6 % (37.0-47.0); Imm Gran Abs Auto 0.02 X10*3/uL (0.00-0.03); Imm Gran Pct Auto 0.4 % (0.0-0.4); Lymphocytes Absolute Auto 1.3 X10*3/uL (1.2-4.9); Lymphocytes Percent Auto 25.5 % (20-40); Mean Corpuscular HGB Conc 31.8 g/dl (31.0-35.0); Mean Corpuscular Hemoglobin 23.9 pg (27.0-33.0); Mean Corpuscular Volume 75.2 fL (80.0-98.0); Mean Platelet Volume 10.1 fL (9.4-12.3); Monocytes Absolute Auto 0.4 X10*3/uL (0.1-1.2); Monocytes Percent Auto 7.7 % (2-11); Neutrophils Absolute Auto 3.3 x10*3/uL (2.0-8.3); Neutrophils Percent Auto 63.7 % (45-73); Platelet Count 445 X10*3/uL (160-400); Red Cell Distribution Width 15.9 % (11.0-16.0); White Blood Count 5.2 X10*3/uL (4.8-10.8)
[2024-08-25 12:03] LABS: Estimated Average Glucose 126 mg/dL; Hemoglobin A1C 121.4241 umol/L
--- OUTSIDE RECORDS SUMMARY | 2024-08-25 12:03 | XMS_ITS | Encounter Summary ---
Author Organization [facility] Address [address] [place] [address] Care Team Providers Care Nuclear Fuel Enrichment Technician Name Role Phone Sandra Pettit MD Primary Care Provider U Sandra Elise MD Unavailable Unavail able Reason for Visit * Reason Comments E-prescribe Rx Request Encounter Details Date Type Department Care Team Description 02/04/2022 Refill Adult Medicine [address] [address] Sandra Pettit MD E-prescribe Rx Request Social History Tobacco Use Types Packs/Day Years Used Date Smoking Tobacco: Never Smokeless Tobacco: Never Alcohol Use Standard Drinks/Week Comments No 0 (1 standard drink = 0.6 oz pur e alcohol) Sex Assigned at Date Recorded Not on file Job Start Date Occupation Industry Not on file Not on file Not on file documented as of this encounter Miscellaneous Notes * Telephone Encounter - Mariel Lundberg - 02/04/2022 4:13 PM EDT Patient would like script to be: E-PRESCRIBED/FAXED TO PHARMACY WHEN WAS THE PATIENT'S LAST APPOINTMENT IN ADULT MEDICINE? 05/23/21 WHEN WAS THE LAST TIME THE PATIENT SAW THEIR PCP? Same as above Does patient have an upcoming appointment? Yes 02/11/22 (THE MEDICATION REQUESTED IS ON THE MED LIST ABOVE) All of the medications requested were on the CURRENT MEDS list Did you check the Pharmacy information above?: YES Patient wants: 30 -day supply Is this a mail order prescription request ? NO If the refill is from a FAXED refill request what is the RX # listed on the fax? N/A Patients current insurance carrier is: Payor: AETNA / Plan: POS $0 [place] [id number] [facility] HSA / Product Type: POS [id number] documented in this encounter Plan of Treatment Not on file documented as of this encounter Visit Diagnoses Not on filedocumented in this encounter Care Teams Nuclear Fuel Enrichment Technician Relationship Specialty Start Date End Date Sandra Pettit MD PCP - General Internal Medicine 06/09/18 Sandra Pettit MD Internal Medicine 06/09/18 documented as of this encounter
--- OUTSIDE RECORDS SUMMARY | 2024-08-25 12:03 | XMS_ITS | Encounter Summary ---
Author Organization [facility] Address [address] [place] [address] Care Team Providers Care Hammer Setter Name Role Phone Sandra Pettit MD Primary Care Provider U Sandra Elise MD Unavailable Unavail able Reason for Visit * Reason Onset Date Comments Faxed Refill 01/27/2019 Encounter Details Date Type Department Care Team Description 01/27/2019 Refill Adult Medicine [address] [address] Sandra Pettit MD Faxed Refill Social History Tobacco Use Types Packs/Day Years [...] encounter Miscellaneous Notes * Telephone Encounter - Lalitha Braga L.P.N. - 01/28/2019 3:06 PM EDT roney 12/02/2018 Lab Results Component Value Date NA 139 12/02/2018 K 3.8 12/02/2018 CO2 24 12/02/2018 CL 105 12/02/2018 BUN 12 12/02/2018 CREAT 0.94 12/02/2018 GLU 121 12/02/2018 CA 9.8 12/02/2018 GFR > 60 12/02/2018 * Telephone Encounter - Julieta Joiner - 01/28/2019 2:18 PM EDT Patient would like script to be: E-PRESCRIBED/FAXED TO PHARMACY WHEN WAS THE PATIENT'S LAST APPOINTMENT IN ADULT MEDICINE? 12/02/18 WHEN WAS THE LAST TIME THE PATIENT SAW THEIR PCP? Same as above Does patient have an upcoming appointment? Yes 06/07/2019 (THE MEDICATION REQUESTED IS ON THE MED LIST ABOVE) All of the medications requested were on the CURRENT MEDS list Did you check the Pharmacy information above?: YES Patient wants: 90 -day supply Is this a mail order prescription request ? YES If the refill is from a FAXED refill request what is the RX # listed on the fax? N/A Patients current insurance carrier is: Payor: AETNA / [facility]: [facility] [id number] [facility] HSA / Product Type: POS [id number] documented in this encounter Plan of Treatment Not on file documented as of this encounter Visit Diagnoses Not on filedocumented in this encounter Care Teams Hammer Setter Relationship Specialty Start Date End Date Sandra Pettit MD PCP - General Internal Medicine 06/09/18 Sandra Pettit MD Internal Medicine 06/09/18 documented as of this encounter
--- OUTSIDE RECORDS SUMMARY | 2024-08-25 12:03 | XMS_ITS | Encounter Summary ---
Author Organization [facility] Address [address] [place] [address] Care Team Providers Care Dispenser Operator Name Role Phone Sandra Pettit MD Primary Care Provider U jarochoailSandra Gonzales MD Unavailable Unavail able Reason for Referral * Non GATO (Routine) - Unable to reach/declined Specialty Diagnoses / Procedures Referred By Contact Referred To Contact Oncology/Hematology Procedures REFERRAL TO ONCOLOGY/HEMATOLOGY (IN NETWORK) Sandra Pettit MD [address] [place] [address] Rhoda Moreno MD [facility] [address] [place] [id number] Referral ID Status Reason Start Date Expiration Date V isits Requested Visits Authorized [id number] Unable to reach/declin ed 07/07/2019 07/06/2020 99 99 Encounter Details Date Type Department Care Team Description 07/07/2019 Orders Only Adult Medicine B - [address] [address] Sandra Pettit MD Social History Tobacco Use [...] on filedocumented in this encounter Care Teams Dispenser Operator Relationship Specialty Start Date End Date Sandra Pettit MD PCP - General Internal Medicine 06/09/18 Sandra Pettit MD Internal Medicine 06/09/18 documented as of this encounter
--- OUTSIDE RECORDS SUMMARY | 2024-08-25 12:03 | XMS_ITS | Encounter Summary ---
Author Organization [facility] Address [address] [place] [address] Care Team Providers Care Surface Ship Usw Supervisor Name Role Phone Sandra Pettit MD Primary Care Provider U jarochoailSandra Gonzales MD Unavailable Unavail able Encounter Details Date Type Department Care Team Description 02/08/2022 Mincemeat Maker Report Medical Records [address] [place] [address] Consuelo Bullard PA-C Social History Tobacco Use Types Packs/Day Years Used Date Smoking Tobacco: Never Smokeless Tobacco: Never Alcohol Use Standard Drinks/Week Comments No 0 (1 standard drink = 0.6 oz pur e alcohol) Sex Assigned at Date Recorded Not on file Job Start Date Occupation Industry Not on file Not on file Not on file COVID-19 Exposure Response Date Recorded In the last 10 days, have yo u been in contact with someone who was confirmed or suspected to have Coronavirus/COVID-19? No / Unsure 02/11/2022 2:24 PM EDT documented as of this encounter Plan of Treatment Not on file documented as of this encounter Visit Diagnoses Not on filedocumented in this encounter Care Teams Surface Ship Usw Supervisor Relationship Specialty Start Date End Date Sandra Pettit MD PCP - General Internal Medicine 06/09/18 Sandra Pettit MD Internal Medicine 06/09/18 documented as of this encounter
--- OUTSIDE RECORDS SUMMARY | 2024-08-25 12:03 | XMS_ITS | Encounter Summary ---
Author Organization [facility] Address [address] [place] [address] Care Team Providers Care Senior Accounting Associate Name Role Phone Maximilian Glover MD Primary Care Provider Fortunato Jj Primary Care Provider Claire e Sandra Pettit MD Primary Care Provider U navailable Sandra Pettit MD Unavailable Unavail able Reason for Visit * Reason Onset Date Comments Medical Records 07/01/2016 Encounter Details Date Type Department Care Team Description 07/01/2016 Telephone OBGYN - [place] [address] [place] [address] Leslie Lopes [facility] Medical Records Social History Tobacco Use Types Packs/Day Years Used Date Smoking Tobacco: Never Alcohol Use Standard Drinks/Week Comments Not Asked 0 (1 standard drink = 0.6 oz pur e alcohol) Sex Assigned at Date Recorded Not on file Job Start Date Occupation Industry Not on file Not on file Not on file documented as of this encounter Miscellaneous Notes * Telephone Encounter - Lucina Contreras - 07/01/2016 10:58 AM EDT Patient signed PRAMOD, will fax to [facility] for records. Patient will need an appt once records are received and reviewed. Patient is requesting Leslie Lopes. documented in this encounter Plan of Treatment Not on file documented as of this encounter Visit Diagnoses Not on filedocumented in this encounter Care Teams Senior Accounting Associate Relationship Specialty Start Date End Date Maximilian Glover MD PCP - General Internal Medicine 05/29/16 11/03/16 Fortunato Dangelo PCP - General Internal Medicine 11/04/16 2 Sandra Pettit MD PCP - General Internal Medicine 06/09/18 Sandra Pettit MD Internal Medicine 06/09/18 documented as of this encounter
--- OUTSIDE RECORDS SUMMARY | 2024-08-25 12:03 | XMS_ITS | Clinical Summary ---
Author Organization [facility] Address [address] [place] [address] Care Team Providers Care Die Filer Name Role Phone Tami Garcia AMRIK Primary Care Provider Source Comments PLEASE NOTE, if this patient [...] finger 06/15/2014 Overview (06/15/2014): Seen at [facility] 06/10/14. Diabetes mellitus type 2, uncontrolled 4 [...] of Treatment Not on file Care Teams Die Filer Relationship Specialty Start Date End Date Tami Garcia NP [address] [place] [address] PCP - General Internal Medicine 09/15/14
--- OUTSIDE RECORDS SUMMARY | 2024-08-25 12:03 | XMS_ITS | Clinical Summary ---
Author Organization [facility] Address [address] [place] [address] Care Team Providers Care Natural Sciences Department Chair Name Role Phone Sandra Faith Primary Care Provider [phone] Allergies No known active allergies Medications atovaquone-prog [...] complete this topic Insurance AETNA Care Teams Natural Sciences Department Chair Relationship Specialty Start Date End Date [address] [address] PCP - General 10/02/20
--- OUTSIDE RECORDS SUMMARY | 2024-08-25 12:03 | XMS_ITS | Clinical Summary ---
Author Organization Patient Business Ser [facility] Address [address] [place] [address] Care Team Providers Care Machine Room Operator Name Role Phone Sandra Faith MD Primary Care Provider [phone] Surgical History Surgery Date Site/Laterality Comments OTHER SURGICAL HISTORY PROCEDURE: DENIES PREVIOUS SURGERY Medical History Medical History Date Comments Anxiety 11/04/2016 DX:Anxiety Depression 11/04/2016 DX:Depression Anemia 11/04/2016 DX:Anemia Hypertension DX:Hypertension Sickle-cell trait (CMS/HCC V24) DX:Sickle-cell trait (HCC) Diabetes mellitus type 2, uncomplicated (CMS/HCC V24, CMS/HCC V28) 11/04/2016 DX:Diabetes mellitus type 2, uncomplicated (HCC) [...] 2023-2 5 season) 2023 11/30/2020 Influenza Vaccine (Season Ended) 2024 HIB Vaccines Aged Out No longer eligi [...] age to complete this topic Meningococcal B Vaccine Aged Out No l onger eligible based on patient's age to complete this topic RSV Immunization Patients Un gwendolyn 20 months Aged Out No longer eligible b ased on patient's age to complete this topic Varicella Vaccines Aged Out No longer eligible based on patient's age to complete this topic Care Teams Machine Room Operator Relationship Specialty Start Date End Date Sandra Faith MD PCP - General Internal Medicine 06/09/18
--- OUTSIDE RECORDS SUMMARY | 2024-08-25 12:03 | XMS_ITS | Referral Summary ---
Author Organization [facility] Address [address] [place] [address] Care Team Providers Care Communications Consultant Name Role Phone Sandra Faith Primary Care Provider [phone] Allergies No known active allergies Medications atovaquone-prog [...] Not on file Insurance AETNA Care Teams Communications Consultant Relationship Specialty Start Date End Date [address] [address] PCP - General 10/02/20
--- OUTSIDE RECORDS SUMMARY | 2024-08-25 12:03 | XMS_ITS | Encounter Summary ---
Author Organization [facility] Address [address] [place] [address] Care Team Providers Care Director Speech And Hearing Name Role Phone Maximilian Glover MD Primary Care Provider Fortunato Jj Primary Care Provider Claire e Sandra Pettit MD Primary Care Provider U navailable Sandra Pettit MD Unavailable Unavail able Encounter Details Date Type Department Care Team Description 07/04/2016 Release of Information Medical Records [address] [place] [id number] Abstract, Provider Social History Tobacco Use Types Packs/Day Years [...] on filedocumented in this encounter Care Teams Director Speech And Hearing Relationship Specialty Start Date End Date Maximilian Glover MD PCP - General Internal Medicine 05/29/16 11/03/16 Fortunato Dangelo PCP - General Internal Medicine 11/04/16 06/08/18 Sandra Pettit MD PCP - General Internal Medicine 06/09/18 Sandra Pettit MD Internal Medicine 06/09/18 documented as of this encounter
[2024-08-25 12:28] LABS: Alanine Aminotransferase 19 U/L (0-31); Albumin Level 4.2 g/dL (3.5-5.0); Alkaline Phosphatase 50 U/L (39-117); Anion Gap 10 (12-20); Aspartate Amino Transferase 21 U/L (5-31); Bilirubin Total 0.4 mg/dL (0.0-1.0); Blood Urea Nitrogen 14 mg/dL (9-16); Calcium 9.5 mg/dL (8.4-10.2); Carbon Dioxide 23 mmol/L (22-29); Chloride 110 mmol/L (96-108); Cholesterol 102 mg/dL (<200); Estimated Glomerular Filt Rate > 60; Glucose Fasting 101 mg/dL (60-99); HDL Cholesterol 44 mg/dL (>40); Iron 213 mcg/dL (30-160); LDL Cholesterol Calculated 51 mg/dL (<100); Percent Iron Saturation 63 % (15-50); Potassium 3.8 mmol/L (3.3-5.1); Sodium 139 mmol/L (135-145); Total Iron Binding Capacity 339 mcg/dL (228-428); Total Protein 7.2 g/dL (6.5-8.0); Triglycerides 35 mg/dL (<150); Unsaturated Iron Binding 126 ug/dL
[2024-08-25 12:48] LABS: Free T4 (Free Thyroxine) 1.11 ng/dL (0.71-1.85); Thyroid Stimulating Hormone 0.78 uIU/mL (0.32-4.0); Vitamin D 25-OH Total 26.1 ng/mL (>30)
[2024-08-25 12:58] LABS: Folate 12.8 ng/mL (> or = 4.0); Vitamin B12 322 pg/mL (200-900)
[2024-08-25 13:21] LABS: Appearance Urine Cloudy; Color Urine Other; Glucose Urine UA >=1000 mg/dL (Negative); Leukocyte Esterase Urine Trace (Negative); Nitrite Urine Negative (Negative); PH 5.5 (5.0-9.0); Specific Gravity - Urine 1.025 (1.005-1.025); UMIC TRIGGER UACC YES; Urine Blood Large (3+) (Negative); Urine Ketones Negative (Negative); Urine Protein 30 (1+) mg/dL (Neg-Trace)
[2024-08-25 13:28] LABS: Creatinine Urine 60.36 mg/dL; Microalbum/Creatinine Ratio Ur 134.1 ug/mg cr (<30)
[2024-08-25 13:29] LABS: Bacteria Urine Trace (None Seen); Hyaline Casts Urine 0-2 /LPF (0-2); RBC Urine >20 /HPF (0-2); WBC Urine 0-5 /HPF (0-5)
== END 2024-08-25 10:45 | disposition home or self-care (01) ==
LOC: HO.LAB 10:44
PROVIDERS: PCP Internal Medicine; Visit Provider Internal Medicine
DX: E11.9 Type 2 diabetes mellitus without complications (principal); N93.9 Abnormal uterine and vaginal bleeding, unspecified; D25.9 Leiomyoma of uterus, unspecified; D57.3 Sickle-cell trait; D50.9 Iron deficiency anemia, unspecified; I10 Essential (primary) hypertension; E78.2 Mixed hyperlipidemia; R30.0 Dysuria
CPT/HCPCS: 36415; 80053; 80061; 81001; 82043; 82306; 82570; 82607; 82746; 83036; 83540; 84439; 84443; 85025

== ENCOUNTER → 2024-11-10 14:30 | Outpatient (BNV) | payer OTHER, SELFPAY | PROVIDERS: PCP Internal Medicine; Visit Provider Radiology Diagnostic Radiology | DX: E28.39 Other primary ovarian failure (principal) | CPT/HCPCS: 77080 ==

== ENCOUNTER 2024-11-10 14:44 | Outpatient (REF) | payer OTHER, SELFPAY ==
--- NOTE | ~2024-11-10 | MM_ITS ---
EXAMINATION: DXA BONE DENSITY AXIAL HISTORY: Z51.81 THERAPEUTIC DRUG LEVEL MONITORING TECHNIQUE: Ampex Dual energy absorptiometry (DEXA) of the lumbar spine, total left hip, and femoral neck was performed. COMPARISON: There are no prior studies for comparison. FINDINGS: The bone mineral density of the lumbar spine is 1.408 g/cm2, corresponding to a T-score of 1.9, and a Z-score of 2.2. This is indicative of normal bone mineral density. The bone mineral density of the left total hip is 1.436 g/cm2, corresponding to a T-score of 3.4, and a Z-score of 3.8. This is indicative of normal bone mineral density. The bone mineral density of the left femoral neck is 1.245 g/cm2, corresponding to a T-score of 1.5, and a Z-score of 2.2. This is indicative of normal bone mineral density. MM/XR DEXA axial skeleton IMPRESSION: Based on bone mineral density, and according to World Health Organization (WHO) criteria, the diagnosis is consistent with normal bone mineral density. Statistically, 68% of repeat scans fall within 1 SD (+/- 0.010 g/cm2 for AP spine L1-L4) and 1 SD (+/- 0.012 g/cm2 for femur total) FRAX is a trademark of the [employer] [facility] Metabolic Bone Disease, a World Health Organization (WHO) Collaborating Center. Electronically signed by: Raz Anne MD 11/10/2024 03:15 PM EDT
--- OUTSIDE RECORDS SUMMARY | 2024-11-10 15:16 | XMS_ITS ---
Author Name [facility] Organization Unknown Care Team Organization Name Specialty Phone Email Start Date End Da lenka [facility] Mariangel De La Rosa Primary Care 08/26/20222023 [facility] Sandra Faith Primary Care 02/26/2022 4
--- OUTSIDE RECORDS SUMMARY | 2024-11-10 15:16 | XMS_ITS | Clinical Summary ---
Author Organization [facility] Address [address] [place] [address] Care Team Providers Care Flatwork Tier Name Role Phone Tami Garcia AMRIK Primary Care Provider [phone] Source Comments PLEASE NOTE, if this patient [...] of finger 06/15/2014 Overview (06/15/2014): Seen at [facility] 06/10/14. Diabetes mellitus type 2, uncontrolled 4 [...] 88 06/08/2014 11:29 AM EST Temperature 36.9 C (98.5 F) 06/08/2014 11:29 AM EST Respiratory Rate 16 06/08/2014 11:29 AM EST Oxygen Saturation - - Inhaled Oxygen Concentration - - Weight 72.7 kg (160 lb 3.2 oz) 06/08/2014 11:29 AM EST Height 156.8 cm (5' 1.75 ) 06/08/2014 11:[address] Body Mass Index 29.54 06/08/2014 11:29 AM EST Plan of Treatment Not on file Care Teams Flatwork Tier Relationship Specialty Start Date End Date Tami Garcia NP [address] [place] [address] PCP - General Internal Medicine 09/15/14
--- OUTSIDE RECORDS SUMMARY | 2024-11-10 15:16 | XMS_ITS | Clinical Summary ---
Author Organization Patient Business Ser [facility] Address [address] [place] [address] Care Team Providers Care Radiology Physician Name Role Phone Sandra Faith MD Primary Care Provider [phone] Surgical History Surgery Date Site/Laterality Comments OTHER [...] 5 Years) and At-Risk Patients (6 to 49 Years) (1 of 2 - PCV) 1993 Cervical Cancer Screening: P ap Smear 11/30/1995 Cholesterol Screening (Lipid Panel) 05/21/2019 Colorectal Cancer Screening: Colonoscopy 05/21/2019 HIV Screening 05/21/2019 Hepatitis C Screening 05/21/2019 Social Influencers of Health Screening 05/21/2019 Diabetes: Annual Urine Albumin-Creatinine Ratio (uACR) 03/31/2022 Diabetes: Blood Sugar Contro l Test (HGBA1C) 03/31/2022 Hypertension/CHF/CAD Annual BMP Blood Test 03/31/2022 COVID-19 Vaccine (2 - 2023-2 5 season) 2023 11/30/2020 Depression Screening 04/21/2024 Influenza Vaccine (#1) 2024 HIB Vaccines Aged Out No longer [...] age to complete this topic Care Teams Radiology Physician Relationship Specialty Start Date End Date Sandra Faith MD PCP - General Internal Medicine 06/09/18
--- OUTSIDE RECORDS SUMMARY | 2024-11-10 15:16 | XMS_ITS | Clinical Summary ---
Author Organization [facility] Address [address] [place] [address] Care Team Providers Care Hat Body Sorter Name Role Phone Sandra Faith Primary Care Provider [phone] Allergies No known active allergies Medications atovaquone-prog [...] 2023 Alcohol/Substance Use Screening 04/21/2024 Influenza Vaccine (#1) 2024 RSV Vaccine (60+ years old a nd patients) (1 - 1-dose 75+ series) 2049 Pneumococcal Vaccine: Pediat sona (0-5 Years) and At-Risk Patients (6-50 Years) Aged Out No longer eligible b ased on patient's age to complete this topic Insurance AETNA Care Teams Hat Body Sorter Relationship Specialty Start Date End Date [address] [address] PCP - General 10/02/20
--- OUTSIDE RECORDS SUMMARY | 2024-11-10 15:16 | XMS_ITS | Clinical Summary ---
Author Organization [facility] Address [address] [place], [place] [id number] Phone Care Team Providers Care Barbering Instructor Name Role Phone Pcp, Unknown Primary Care Provider Unavailabl e Allergies No known active allergies Medications No known medications Active Problems No known active problems Social History Tobacco Use Types Packs/Day Years Used Date Smoking Tobacco: Never Assessed Education Answer Date Recorded Are you interested in more education? Not on mahsa e 03/27/2023 Are you concerned about learning? Not on file 03/27/2023 No 03/27/2023 No 03/27/2023 Digital Access Answer Date Recorded No 03/27/2023 No 03/27/2023 Reliable internet access at home? Not on file 03/27/2023 Device with a working camera? Not on file Comments Unknown Sex and Gender Information Value Date Recorded Sex Assigned at Not on file Legal Sex Female 8:01 PM EST Gender Identity Not on file Sexual Orientation Not on file Last Filed Vital Signs Vital Sign Reading Time Taken Comments Blood Pressure - - Pulse - - Temperature - - Respiratory Rate - - Oxygen Saturation - - Inhaled Oxygen Concentration - - Weight 75.8 kg (167 lb) 04/18/2023 2:02 PM EST Height 160 cm (5' 3 ) 04/18/2023 2:02 PM EST Body Mass Index 29.58 04/18/2023 2:02 PM EST Plan of Treatment Health Maintenance Due Date Last Done Comments LIPID PANEL 1974 DEPRESSION SCREENING 1986 SMOKING Hx and SMOKELESS TOBACCO SCREENING 11/30/1987 HEPATITIS C SCREENING 1992 HIV ONE-TIME SCREENING (18-6 5 YEARS) 1992 PAP SMEAR 11/30/1995 SCREENING FOR DIABETES 2009 MAMMOGRAM 2014 COLOGUARD 11/30/2019 COLONOSCOPY 11/30/2019 COLORECTAL CANCER SCREENING 11/30/2019 FIT TEST 11/30/2019 FOBT 11/30/2019 SIGMOIDOSCOPY 11/30/2019 VIRTUAL COLONOSCOPY 11/30/2019 Adult Td,Tdap Booster 11/16/2020 11/16/2010 COVID-19 VACCINE ( - 2023-2 5 season) 2023 05/04/2022, 11/30/2020 MENINGOCOCCAL VACCINES (ACWY) Aged Out 11/16/2010 No longer eligible based on patient's age to complete this topic HEPATITIS A VACCINES Aged Out 10/09/2020 No long er eligible based on patient's age to complete this topic HIB VACCINES Aged Out No longer eligi ble based on patient's age to complete this topic MENINGOCOCCAL VACCINES (B) Aged Out N o longer eligible based on patient's age to complete this topic PNEUMOCOCCAL VACCINES (0-49 years) Aged Out No longer eligible b ased on patient's age to complete this topic Medical Devices Not on file Insurance [employer] BENEFITS ADMINISTRATORS [employer] BENEFITS ADMINISTRATORS [employer] BENEFITS ADMINISTRATORS [employer] BENEFITS ADMIN[employer]AT[place] [address] BENEFITS ADMINISTRATORS Care Teams Barbering Instructor Relationship Specialty Start Date End Date Pcp, Unknown PCP - General 03/27/23 Additional Source Comments The information contained in this document represents components of the legal health record. It is not the complete legal health record.[facility]
== END 2024-11-10 14:45 | disposition home or self-care (01) ==
LOC: HO.MAMMO 14:44
PROVIDERS: PCP Internal Medicine; Visit Provider Obstetrics & Gynecology
DX: Z13.820 Encounter for screening for osteoporosis (principal); Z79.899 Other long term (current) drug therapy
CPT/HCPCS: 77080

== ENCOUNTER 2025-01-11 13:40 | Outpatient (REF) | payer OTHER, SELFPAY ==
--- NOTE | ~2025-01-11 | MR_ITS ---
CLINICAL HISTORY: NEOPLASM OF UNCERTAIN BEHAVIOR OF UNSPEC. KIDNEY MR abdomen with and without gadolinium Comparison: MR - MR ABDOMEN WO/W CON - 05/23/24 15:52 EST Findings: The lung bases are normal. Circumscribed heterogeneously enhancing solid mass in the midpole of the right kidney is unchanged. The rest of the solid organs are normal. The gallbladder is normal. The visualized bowel is unremarkable. No ascites. The visualized bones and soft tissues are unremarkable. IMPRESSION: Solid enhancing right renal mass is unchanged. Please obtain an additional follow-up MRI in 6 months. This document has been electronically signed by: Gilberto Martinez MD on 01/12/2025 12:08:44
--- OUTSIDE RECORDS SUMMARY | 2025-01-11 16:49 | XMS_ITS | Clinical Summary ---
Author Organization [facility] Address [address] [place] [address] Care Team Providers Care Casket Liner Name Role Phone Tami Garcia AMRIK Primary Care Provider [phone] Source Comments PLEASE NOTE, if this patient [...] of finger 06/15/2014 Overview (06/15/2014): Seen at [facility] 06/10/14. Diabetes mellitus type 2, uncontrolled 4 [...] of Treatment Not on file Care Teams Casket Liner Relationship Specialty Start Date End Date Tami Garcia NP [address] [place] [address] PCP - General Internal Medicine 09/15/14
--- OUTSIDE RECORDS SUMMARY | 2025-01-11 16:50 | XMS_ITS | Clinical Summary ---
Author Organization [facility] Address [address] [place], [place] [id number] Phone Care Team Providers Care Customs Broker Name Role Phone Pcp, Unknown Primary Care [...] COLONOSCOPY 11/30/2019 Adult Td,Tdap Booster 11/16/2020 11/16/2010 INFLUENZA VACCINE (#1) 2024 PNEUMOCOCCAL VACCINES (50+ years) (1 of 1 - PCV) 2024 ZOSTER VACCINES (1 of 2) 2024 COVID-19 VACCINE (3 - 2024-2 6 season) 2024 05/04/2022, 11/30/2020 MENINGOCOCCAL VACCINES (ACWY) Aged Out [...] topic Medical Devices Not on file Insurance [employer] BENEFITS ADMINISTRATORS [employer] BENEFITS ADMINISTRATORS [employer] BENEFITS ADMINISTR[place] [address] [place] [address] BENEFITS ADMINISTRATORS Care Teams Customs Broker Relationship Specialty Start Date End Date Pcp, Unknown PCP - General 03/27/23 Additional Source Comments The information contained in this document represents components of the legal health record. It is not the complete legal health record.[facility]
--- OUTSIDE RECORDS SUMMARY | 2025-01-11 16:50 | XMS_ITS | Encounter Summary ---
Author Organization [facility] Address [address] [address] Phone Care Team Providers Care Chief Controller Center Name Role Phone Pcp, Unknown Primary Care Provider Unavailabl e Encounter Details Date Type Department Care Team (Late st Contact Info) Description 03/27/2023 Procedure [facility], [address] [address] Social History Tobacco Use Types Packs/Day Years [...] on file Sexual Orientation Not on file documented as of this encounter Plan of Treatment Not on file documented as of this encounter Visit Diagnoses Not on filedocumented in this encounter Care Teams Chief Controller Center Relationship Specialty Start Date End Date Pcp, Unknown PCP - General 03/27/23 documented as of this encounter Additional Source Comments The information contained in this document represents components of the legal health record. It is not the complete legal health record.[facility]
--- OUTSIDE RECORDS SUMMARY | 2025-01-11 16:50 | XMS_ITS | Clinical Summary ---
Author Organization Patient Business Ser [facility] Address [address] [place] [address] Care Team Providers Care Tub Puller Name Role Phone Sandra Faith MD Primary Care Provider [phone] Surgical History Surgery Date Site/Laterality Comments OTHER [...] - 19+ 3-dose series) 1993 Pneumococcal Vaccine: 50+ Ye ars (1 of 2 - PCV) 1993 Cervical Cancer Screening: P ap Smear 11/30/1995 Cholesterol Screening (Lipid Panel) 05/21/2019 Colorectal Cancer Screening: Colonoscopy 05/21/2019 HIV Screening 05/21/2019 Hepatitis C Screening 05/21/2019 Social Influencers of Health Screening 05/21/2019 Diabetes: Annual Urine Albumin-Creatinine Ratio (uACR) 03/31/2022 Diabetes: Blood Sugar Contro l Test (HGBA1C) 03/31/2022 Hypertension/CHF/CAD Annual BMP Blood Test 03/31/2022 Depression Screening 04/21/2024 Zoster Vaccines (1 of 2) 2024 COVID-19 Vaccine (2 - 2024-2 6 season) 2024 11/30/2020 Influenza Vaccine (#1) 2024 HIB Vaccines Aged [...] age to complete this topic Care Teams Tub Puller Relationship Specialty Start Date End Date Sandra Faith MD PCP - General Internal Medicine 06/09/18
--- OUTSIDE RECORDS SUMMARY | 2025-01-11 16:50 | XMS_ITS | Clinical Summary ---
Author Organization [facility] Address [address] [place] [address] Care Team Providers Care Loan Administrator Name Role Phone Sandra Faith Primary Care Provider [phone] Allergies No known active allergies Medications atovaquone-prog [...] Health Maintenance Due Date Last Done Comments Cologuard 1974 Colon Cancer Screening 1974 Colonoscopy 1974 FOBT / Fit Test 1974 HIV Screening 1974 Sigmoidoscopy 1974 Hepatitis B Vaccines (1 of 3 - 19+ 3-dose series) 11/19 DTaP,Tdap,and Td Vaccines (2 - Td or Tdap) 11/16/2020 11/16/2010 Alcohol/Substance Use Screening 04/21/2024 Pneumococcal Vaccine: 50+ Years (1 of 1 - PCV) 025 Zoster Vaccines (1 of 2) 2024 COVID-19 Vaccine (1 - 2023- season) 2024 Influenza Vaccine (#1) 2024 RSV Vaccine (60+ years old a nd patients) (1 - 1-dose 75+ series) 2049 Insurance AETNA Care Teams Loan Administrator Relationship Specialty Start Date End Date [place] [address] [facility] [place] [address] PCP - General 10/02/20
== END 2025-01-11 13:41 | disposition home or self-care (01) ==
LOC: HO.MRI 13:40
PROVIDERS: PCP Internal Medicine; Visit Provider Physician Assistant Medical
DX: D41.00 Neoplasm of uncertain behavior of unspecified kidney (principal)
CPT/HCPCS: 74183; A9585

== ENCOUNTER → 2025-01-11 13:41 | Outpatient (BNV) | payer OTHER, SELFPAY | PROVIDERS: PCP Internal Medicine; Visit Provider Radiology Diagnostic Radiology | DX: N28.89 Other specified disorders of kidney and ureter (principal) | CPT/HCPCS: 74183 ==

== ENCOUNTER 2025-01-12 14:00 | Outpatient (RCR) | payer OTHER, SELFPAY ==
[2024-11-11 11:09] VITALS: BP 112/67; PULSE 95; RESP 16; TEMP 36.6; O2SAT 98
[2024-11-15 14:07] VITALS: BP 110/71; PULSE 87; RESP 16; TEMP 36.6; O2SAT 98
[2024-11-26 14:52] VITALS: BP 140/85; PULSE 102; RESP 16; TEMP 36.2; O2SAT 99
[2024-12-03 14:51] VITALS: BP 127/82; PULSE 93; RESP 16; TEMP 36.7; O2SAT 98
[2024-12-09 14:17] VITALS: BP 123/80; PULSE 90; RESP 16; TEMP 36.6; O2SAT 98
[2024-12-22 12:27] VITALS: BP 129/83; PULSE 82; RESP 16; TEMP 37.2; O2SAT 98
[2024-12-22] MEDS: 0.9 % Sodium Chloride Flush 10 ML SYRINGE 5 ML IVFLUSH (13:08)
[2025-01-05 13:59] VITALS: BP 122/83; PULSE 97; RESP 16; O2SAT 98
[2025-01-12 14:08] VITALS: BP 136/88; PULSE 96; RESP 18; TEMP 36.6
== END 2025-01-12 14:44 | disposition home or self-care (01) ==
LOC: HO.INF 14:00
PROVIDERS: Visit Provider Internal Medicine
DX: D50.9 Iron deficiency anemia, unspecified (principal)
CPT/HCPCS: 96365; J1756

== ENCOUNTER 2025-02-21 10:24 | Outpatient (AMB) | payer OTHER, SELFPAY ==
--- NOTE | 2025-02-21 11:27 | MHC.PC.OV ---
Vital Signs 02/21/25 11:37 Height 5 ft 3 in Weight 159 lb BMI 28.2 BP 122/90 H Blood Pressure Location Rt brachial Position Sitting Respiration 15 Pulse 85 Pulse Source Pulse Oximeter Temp 98.1 F Temp Source Oral Pulse Oximetry (%) 98 Oxygen Delivery Method Room Air Intake Visit Reasons: Annual PE Intake Note: Pt is here today her PE: Last mammogram 04/09/24, papsmear 06/03/23 Invoice Clerk Required: No Allergies Penicillins Allergy (Intermediate, Verified 02/21/25 11:28) Rash Tobacco use date assessed: 02/21/25 Dental Screening Dental Screen Date: 02/21/25 Did you have a dental visit in the last 12 months?: Yes Did you have a dental problem in the last 6 months where you did not have access to dental care?: No Was dental information given to patient?: Patient has dentist HPI Annual PE HPI Details 49-year-old lady with history of diabetes mellitus, abnormal uterine bleeding with microcytic hypochromic anemia, hypertension hyperlipidemia, here today for physical exam. Up-to-date with her breast cancer screening, last done March 2024 with benign findings and sees Dr. Soto for her routine Pap and pelvic exam, with last Pap smear done in 2023, had a endometrial biopsy done which showed benign findings. [facility] Medical History Type 2 diabetes mellitus without complication, without long-term current use of insulin Leiomyoma of body of uterus (sickle cell trait) Microcytic hypochromic anemia Type 2 diabetes mellitus with hyperglycemia, without long-term current use of insulin Bilateral renal masses Hypertension Hyperlipidemia Family History Mother Mental health disorder Diabetes mellitus Father Diabetes mellitus Other Substance use disorder Social History Housing: Apartment Patient Tobacco Use Status: Never used Tobacco e-Cigarette/Vaping Use: Never Used Second Hand Smoke Exposure: No service: No Current occupational status: employed Current occupation: [employer] Current occupational exposures/hazards: Yes Cognitive needs: No Hearing needs: No Vision needs: No Questionnaire PHQ-9 Over the last 2 weeks, how often have you been bothered by any of the following problems? 1. Little interest or pleasure in doing things: not at all 2. Feeling down, depressed, or hopeless: not at all 3. Trouble falling or staying asleep, or sleeping too much: not at all 4. Feeling tired or having little energy: not at all 5. Poor appetite or overeating: not at all 6. Feeling bad about yourself - or that you are a failure or have let yourself or your family down: not at all 7. Trouble concentrating on things, such as reading the newspaper or watching television: not at all 8. Moving or speaking so slowly that other people could have noticed. Or the opposite - being so fidgety or restless that you have been moving around a lot more than usual: not at all 9. Thoughts that you would be better off or of hurting yourself in some way: not at all Total score: 0 Depression Screening Interpretation: Negative Depression Screening Done: Yes 99479 - PHQ-9 Billing: Yes Source: Developed by Drs. Raz Merchant, Norma Meier, Paul Iglesias and colleagues, with an educational nitin from [employer]. Thrive Questionnaire Date Thrive assessed: 02/21/25 I am a: Patient What is your living situation today?: I have a steady place to live Within the past 12 months, did the food you bought not last and you didn't have the money to get more?: Never true Within the past 12 months, did you worry whether your food would run out before you got money to buy more?: Never true Do you have trouble paying for medicines?: No Do you have trouble getting transportation to medical appointments?: No Do you have trouble paying your heating and electricity bill?: No Do you have trouble taking care of your child, family member or friend?: No Do you have trouble with day-to-day activities such as bathing, preparing meals, shopping, managing finances, etc.?: No Are you currently unemployed and looking for a job?: No Are you interested in more education?: No Please select the resources that you would like help with: None Currently or been in a relationship where the following occur: No concerns reported THRIVE Score: 0 AUDIT C Alcohol Use Questionnaire (AUDIT-C) 1. How often do you have a drink containing alcohol?: Never Total Score: 0 JORGE-7 AMB Questionnaire JORGE-7 Date JORGE - 7 assessed: 02/21/25 Feeling nervous, anxious, or on edge: 0 = Not at all Not being able to stop or control worryin = Not at all Worrying too much about different things: 0 = Not at all Trouble relaxin = Not at all Being so restless that it is hard to sit still: 0 = Not at all Becoming easily annoyed or irritable: 0 = Not at all Feeling afraid as if something awful might happen: 0 = Not at all Total JORGE-7 score (0-4 normal; 5-9 mild; 10-14 moderate; 15-21 severe): 0 Source: Developed by Drs. Raz Merchant, Norma Meier, Paul Iglesias and colleagues, with an educational nitin from [employer]. JORGE-7 Assessment Billing JORGE-7 Assessment Tool: JORGE-7 Assessment 23877 Physical exam (Primary Care) Vital Signs: Last Vital Signs Temp 98.1 F 02/21/25 11:37 Pulse 85 02/21/25 11:37 Resp 15 02/21/25 11:37 BP 122/90 H 02/21/25 11:37 Pulse Ox 98 02/21/25 11:37 Oxygen Delivery Method Room Air 02/21/25 11:37 BMI result Body Mass Index 28.2 Tobacco/Smoking Status: Tobacco use Status Tobacco use date assessed 02/21/25 02/21/25 11:32 Patient Tobacco Use Status Never used Tobacco 02/21/25 11:28 e-Cigarette/Vaping Use Never Used 02/21/25 11:28 PHQ-9: PHQ-9 Score PHQ-9: Total score 0 02/21/25 11:46 Depression Screening Interpretation: Negative Thrive Assessment: Date of Thrive Assessment Date Thrive assessed 02/21/25 02/21/25 11:46 Currently or been in a relationship where the following occur: No concerns reported Results AMB Hemoglobin A1c AMB Hemoglobin A1c 6.0 % Last Edit by Paulina Correa CMA on 02/21/25 12:28 Coding Diagnoses Mixed hyperlipidemia E78.2 Hyperlipidemia type: mixed hyperlipidemia Primary hypertension I10 Hypertension type: primary hypertension Abnormal uterine bleeding N93.9 Type 2 diabetes mellitus without complication, without long-term current use of insulin E11.9 Additional Codes JORGE-7 Assessment Billing - JORGE-7 Assessment Tool: JORGE-7 Assessment [id number] ([id number]) PHQ-9 - 78746 - PHQ-9 Billing: Yes ([id number]) Assessment & Plan Assessment & Plan (1) Hyperlipidemia: Code(s): E78.5 - Hyperlipidemia, unspecified Category: Medical Qualifiers: Hyperlipidemia type: mixed hyperlipidemia Qualified Code(s): E78.2 - Mixed hyperlipidemia (2) Hypertension: Code(s): I10 - Essential (primary) hypertension Category: Medical Qualifiers: Hypertension type: primary hypertension Qualified Code(s): I10 - Essential (primary) hypertension (3) Abnormal uterine bleeding: Comment: Enlarging uterine myoma Code(s): N93.9 - Abnormal uterine and vaginal bleeding, unspecified Category: Medical (4) Type 2 diabetes mellitus without complication, without long-term current use of insulin: Code(s): E11.9 - Type 2 diabetes mellitus without complications Category: Medical Orders: Orders Basic Metabolic Panel Fasting Today E11.9 - Type 2 diabetes mellitus without complications, E78.2 - Mixed hyperlipidemia, I10 - Essential (primary) hypertension, N93.9 - Abnormal uterine and vaginal bleeding, unspecified Aspartate Amino Transferase Today E11.9 - Type 2 diabetes mellitus without complications, E78.2 - Mixed hyperlipidemia, I10 - Essential (primary) hypertension, N93.9 - Abnormal uterine and vaginal bleeding, unspecified Alanine Aminotransferase Today E11.9 - Type 2 diabetes mellitus without complications, E78.2 - Mixed hyperlipidemia, I10 - Essential (primary) hypertension, N93.9 - Abnormal uterine and vaginal bleeding, unspecified Hemoglobin A1c Today E11.9 - Type 2 diabetes mellitus without complications, E78.2 - Mixed hyperlipidemia, I10 - Essential (primary) hypertension, N93.9 - Abnormal uterine and vaginal bleeding, unspecified AMB Hemoglobin A1c Today Z13.9 - Encounter for screening, unspecified Lipid Panel Today E11.9 - Type 2 diabetes mellitus without complications, E78.2 - Mixed hyperlipidemia, I10 - Essential (primary) hypertension, N93.9 - Abnormal uterine and vaginal bleeding, unspecified Vitamin D 25-OH Total Today E11.9 - Type 2 diabetes mellitus without complications, E78.2 - Mixed hyperlipidemia, I10 - Essential (primary) hypertension, N93.9 - Abnormal uterine and vaginal bleeding, unspecified Microalbumin, Random (w Creat) Today E11.9 - Type 2 diabetes mellitus without complications, E78.2 - Mixed hyperlipidemia, I10 - Essential (primary) hypertension, N93.9 - Abnormal uterine and vaginal bleeding, unspecified Referrals Cologuard Test Z12.11 - Encounter for screening for malignant neoplasm of colon
[2025-02-21 11:37] VITALS: BP 122/90; PULSE 85; RESP 15; TEMP 36.7; O2SAT 98; BMI 28.2
--- OUTSIDE RECORDS SUMMARY | 2025-02-21 12:28 | XMS_ITS | Clinical Summary ---
Author Organization Patient Business Ser [facility] Address [address] [place] [address] Care Team Providers Care Operation Manager Name Role Phone Sandra Faith MD Primary Care Provider [phone] Surgical History Surgery Date Site/Laterality Comments OTHER [...] Last Done Comments Breast Cancer Screening 1974 Colorectal Cancer Screening: Colonoscopy 1974 Diabetes: Annual GFR (Glomer ular Filtration Rate) 1974 Diabetes: Annual Foot Exam 1984 Diabetes: Annual Retina Eye Exam 1984 DTaP,Tdap,and Td Vaccines (1 - Tdap) 1993 Hepatitis B Vaccines (1 of 3 - 19+ 3-dose series) 1993 Pneumococcal Vaccine: 50+ Ye ars (1 of 2 - PCV) 1993 Cervical Cancer Screening: P ap Smear 11/30/1995 Cholesterol Screening (Lipid Panel) 05/21/2019 HIV Screening 05/21/2019 Hepatitis C Screening 05/21/2019 Social Influencers of Health Screening 05/21/2019 Diabetes: Annual Urine Albumin-Creatinine Ratio (uACR) 03/31/2022 Diabetes: Blood Sugar Contro l Test (HGBA1C) 03/31/2022 Hypertension/CHF/CAD Annual BMP Blood Test 03/31/2022 Depression Screening 04/21/2024 RSV Immunization Adult Patie nts (1 - Risk 50-74 years 1-dose series) 2024 Zoster Vaccines (1 of 2) 2024 COVID-19 [...] age to complete this topic Care Teams Operation Manager Relationship Specialty Start Date End Date Sandra Faith MD PCP - General Internal Medicine 06/09/18
--- OUTSIDE RECORDS SUMMARY | 2025-02-21 12:28 | XMS_ITS | Encounter Summary ---
Author Organization [facility] Address [address] [address] Phone Care Team Providers Care Agricultural Extension Educator Name Role Phone Pcp, Unknown Primary Care Provider Unavailabl e Encounter Details Date Type Department Care Team (Late st Contact Info) Description 03/27/2023 Procedure Pass [facility], [address] [address] Social History Tobacco Use Types Packs/Day Years [...] on filedocumented in this encounter Care Teams Agricultural Extension Educator Relationship Specialty Start Date End Date Pcp, Unknown PCP - General 03/27/23 documented as of this encounter Additional Source Comments The information contained in this document represents components of the legal health record. It is not the complete legal health record.[facility]
--- OUTSIDE RECORDS SUMMARY | 2025-02-21 12:28 | XMS_ITS | Clinical Summary ---
Author Organization [facility] Address [address] [place], [place] [id number] Phone Care Team Providers Care Pulp Mill Team Leader Name Role Phone Pcp, Unknown Primary Care [...] - 2024-2 6 season) 2024 05/04/2022, 11/30/2020 RSV VACCINE (1 - 1-dose 75+ series) 2049 MENINGOCOCCAL VACCINES (ACWY) Aged Out 11/16/2010 No [...] topic Medical Devices Not on file Insurance [employer]EF[employer] ADMIN[employer] [address] [employer] BENEFITS ADMINISTRATORS [employer] BENEF[employer] ADMINISTRATORS [facility] BENEFITS ADMINISTRATORS Care Teams Pulp Mill Team Leader Relationship Specialty Start Date End Date Pcp, Unknown PCP - General 03/27/23 Additional Source Comments The information contained in this document represents components of the legal health record. It is not the complete legal health record.[facility]
--- OUTSIDE RECORDS SUMMARY | 2025-02-21 12:28 | XMS_ITS | Clinical Summary ---
Author Organization [facility] Address [address] [place] [address] Care Team Providers Care Call Center Support Representative Name Role Phone Sandra Faith Primary Care Provider [phone] Allergies No known active allergies Medications atovaquone-prog [...] of 3 - 19+ 3-dose series) 11/19 Mammogram 2014 DTaP,Tdap,and Td Vaccines (2 - Td or Tdap) 11/16/2020 11/16/2010 Alcohol/Substance Use Screening 04/21/2024 Pneumococcal Vaccine: 50+ Years (1 of 1 - PCV) 025 Zoster Vaccines (1 of 2) 2024 COVID-19 Vaccine (1 - 2024- season) 2024 Influenza Vaccine (#1) 2024 RSV Vaccine (60+ years old a nd patients) (1 - 1-dose 75+ series) 2049 Insurance [employer] Care Teams Call Center Support Representative Relationship Specialty Start Date End Date [address] [address] PCP - General 10/02/20
== END 2025-02-21 12:04 | disposition home or self-care (01) ==
PROVIDERS: PCP Internal Medicine; Visit Provider Internal Medicine
DX: Z13.9 Encounter for screening, unspecified (principal)

== ENCOUNTER → 2025-02-21 10:24 | Outpatient (BNVA) | payer OTHER, SELFPAY | PROVIDERS: PCP Internal Medicine; Visit Provider Internal Medicine | DX: Z00.01 Encounter for general adult medical examination with abnormal findings (principal); E11.9 Type 2 diabetes mellitus without complications; I10 Essential (primary) hypertension; E78.2 Mixed hyperlipidemia; N93.9 Abnormal uterine and vaginal bleeding, unspecified; Z79.84 Long term (current) use of oral hypoglycemic drugs | CPT/HCPCS: 83036; 96127 ==

== ENCOUNTER 2025-04-13 07:26 | Emergency (ER) | payer OTHER, SELFPAY ==
[2025-04-13 07:29] VITALS: BP 116/77; PULSE 113; RESP 16; TEMP 36.5; O2SAT 100; BMI 27.1
[2025-04-13 07:35] LABS: Glucose, Whole Blood 214 mg/dL (60-115)
--- NOTE | 2025-04-13 07:43 | ED.FEMALEGU ---
HPI - Female Genitourinary General Chief complaint: Vaginal Bleeding Stated complaint: abd pain Time Seen by Provider: 04/13/25 07:27 History of Present Illness ED Provider: Drea Frost NP HPI Narrative: 49-year-old female medical history significant for diabetes type 2, bilateral renal masses, hypertension, hyperlipidemia, abnormal uterine bleeding including very heavy bleeding s/p IUD insertion in 04/2024 complicated by a period of very heavy bleeding in 06/2024 resulting in IUD expulsion, US revealing several uterine fibroids (07/08/24), followed previously by OBGYN Dr. Soto at [facility], further referred to [facility] OBGYN now seeing Dr. Winter, currently on Medroxyprogesterone 10 mg BID presents to the ED for evaluation reporting an episode of heavy vaginal bleeding associated with acute onset nausea, diaphoresis, and lower abdominal cramping. 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 When she stood up, she felt herself pass a large clot. She has had episodes of this previously that were similar with episodes of heavy bleeding. She reports that she has been saturating about 1 pad hourly for the past 3 days. She had noticed to be bleeding through her the scrub bottoms. Denies any chest pain or pressure, shortness of breath. No upper abdominal pain. No vomiting, diarrhea or constipation. No urinary complaints including dysuria, hematuria, urgency or frequency. No abnormal vaginal discharge. No fever, chills. No episodes of syncope. Related Data Home Medications ?Medication ?Instructions ?Recorded ?Confirmed folic acid 0.8 mg-vit B comp with tab PO 08/14/23 06/08/24 P-wqyg-zcmekme D3 2,000 unit tablet Previous Rx's ?Medication ?Instructions ?Recorded medroxyprogesterone 10 mg tablet 10 mg PO DAILY 90 days #90 tabs 09/08/24 (Provera) metformin 1,000 mg tablet 1,000 mg PO BID 3 months #180 tabs 11/15/24 metoprolol tartrate 50 mg tablet 50 mg PO BID #180 tabs 12/06/24 lisinopril 20 1 tab PO DAILY #90 tabs 01/05/25 mg-hydrochlorothiazide 12.5 mg tablet Jardiance 25 mg tablet 25 mg PO QAM #90 tabs 01/11/25 (empagliflozin) tranexamic acid 650 mg tablet 1,300 mg (2 x 650 mg) PO TID 5 04/13/25 days #30 tabs Allergies Allergy/AdvReac Type Severity Reaction Status Date / Time Penicillins Allergy Intermediate Rash Verified 04/13/25 07:30 Review of Systems Review of Systems: ROS is otherwise negative unless mentioned in HPI. [facility] Past Medical History Medical History Type 2 diabetes mellitus without complication, without long-term current use of insulin Leiomyoma of body of uterus (sickle cell trait) Microcytic hypochromic anemia Type 2 diabetes mellitus with hyperglycemia, without long-term current use of insulin Bilateral renal masses Hypertension Hyperlipidemia Family History Family History (Updated 02/27/25 @ 01:17 by Mady Boothe MD) Mother Mental health disorder Diabetes mellitus Father Diabetes mellitus Daughter Sickle cell beta thalassemia Other Substance use disorder Social History Social History Housing: Apartment Patient Tobacco Use Status: Never used Tobacco Smoked in Last 30 Days: No e-Cigarette/Vaping Use: Never Used Second Hand Smoke Exposure: No Use of substances other than those prescribed or required for medical reasons: No Advance Directives: No Advance Directives Information Provided: Yes Patient : No service: No Current occupational status: employed Current occupation: [employer] [place] Current occupational exposures/hazards: Yes Cognitive needs: No Hearing needs: No Vision needs: No Physical Exam Exam: Exam: Nursing notes and vital signs reviewed. Constitutional: Well-appearing, NAD. Alert. Oriented X3. Eyes: EOMI. ENT: Pharynx normal. Neck: Normal inspection. Neck supple. CVS: Normal heart rate and rhythm. Pulses normal. Respiratory: No respiratory distress. Breath sounds normal. Abdomen: Soft, nontender, nondistended. No CVA tenderness bilaterally. Skin: Skin warm and dry. Normal skin color. Extremities: No lower extremity edema. Neuro: Oriented X 3. No motor deficit. Vital Signs: Vital Signs: Last Vital Signs Temp 98.7 F 04/13/25 14:34 Pulse 94 04/13/25 14:34 Resp 16 04/13/25 14:34 BP 104/73 04/13/25 14:34 Pulse Ox 97 04/13/25 14:34 O2 Del Method Room Air 04/13/25 14:34 BMI result Body Mass Index 27.1 Medications Administered Discontinued Medications Generic Name Dose Route Start Last Admin Trade Name Trino PRN Reason Stop Dose Admin Acetaminophen 975 mg 04/13/25 10:45 04/13/25 10:50 Acetaminophen 325 Mg Tablet PO 04/13/25 10:46 975 mg ONCE ONE Administration Hydrochlorothiazide 12.5 mg 04/13/25 13:25 04/13/25 13:32 Hydrochlorothiazide 12.5 Mg Tablet PO 04/13/25 13:26 12.5 mg ONCE ONE Administration Protocol Sodium Chloride 1,000 mls @ 999 mls/hr 04/13/25 09:48 04/13/25 11:37 Ns IV 04/13/25 10:48 Infused .Q1H1M ONE Infusion Sodium Chloride 1,000 mls @ 999 mls/hr 04/13/25 12:22 04/13/25 13:28 Ns IV 04/13/25 13:22 Infused .Q1H1M ONE Infusion Lisinopril 20 mg 04/13/25 13:25 04/13/25 13:32 Lisinopril 20 Mg Tablet PO 04/13/25 13:26 20 mg ONCE ONE Administration Protocol Medroxyprogesterone Acetate 10 mg 04/13/25 10:36 04/13/25 12:06 Medroxyprogesterone Acetate 5 Mg Tablet PO 04/13/25 10:37 10 mg ONCE ONE Administration Metoprolol Tartrate 50 mg 04/13/25 13:25 04/13/25 13:32 Metoprolol Tartrate 50 Mg Tablet PO 04/13/25 13:26 50 mg ONCE ONE Administration Protocol Tranexamic Acid 1,300 mg 04/13/25 10:36 04/13/25 10:41 Tranexamic Acid 650 Mg Tablet PO 04/13/25 10:37 1,300 mg ONCE ONE Administration Medical Decision Making Medical Decision Making MDM Narrative: Upon my assessment, the patient appears overall well, though she is mildly diaphoretic. She is a vitally stable. She is mildly tachycardic however, though I do not suspect sepsis at this time, this is likely due to underlying dehydration or due to bleeding, maybe mild volume depletion. I considered giving fluids, at this time I would like to repeat her CBC in the next 2-3 hours and do not want to alter such results. Will monitor in the ED, obtain labs, and reassess upon repeat. She does not want a pelvic exam at this time. States this is likely a regular menstrual cycle, though she has not had a cycle 2 months that she has been on Provera. This bleeding has occurred for 3 days. However, she has waited to seek care due to the holiday. She wanted to wait until after the holiday to seek care. Initial HH 10.8/34.1. Patient's CBC from 02/03 was 13.3/42.6. Will speak again about pelvic examination. 10:35 AM--Upon pelvic examination, the cervical os is mildly open. There was an active large clot and that I was able to remove, and she has been saturating pads with clots. No CMT. Repeat CBC shows on small drop, 10.8 to 10.4. I was able to speak with [facility] OBGYN Dr. Winter. We discussed the patient, how at the time of her visit/ consultation with Dr. Winter she did not want a hysterectomy performed. She will be more agreeable now, given the significant bleeding. She does not believe this bleeding is related to her menstrual cycle. Therefore, we decided together to initiate oral TXA 1300 mg t.i.d. for 5 days. I will administer the 1st dose in the ED, and sent a prescription for this. Dr. Winter will also have the office contact the patient on Friday to discuss an appointment in office. Plan to reassess VS, ensure she tolerates PO, and reassess prior to discharge. 12:37 PM-- Upon reassessment, it was noted that she had improved with her tachycardia however now is in the 120s again. I do think this is likely due to volume depletion or acute dehydration. She has not been tolerating much PO. We will administer a 2nd L of IV fluids and reassess. EKG sinus tachycardia without any evidence of ischemia. Appearance is similar. 1:26 PM-- Nursing staff has informed me that the patient's heart rate had improved to 105 beats per minute, however upon ambulation became 130 again. I discussed with her my concern for bleeding again, and her heart rate. The patient further reports she did not take her home doses of metoprolol, lisinopril hydrochlorothiazide. I ordered them for here, and a 3rd CBC to ensure there is no significant drop in her hemoglobin as she appears more pale and unwell. She reports she has continued to saturate 1 pad per hour with large clots. I am concerned this is due to volume depletion from now significant blood loss from her vaginal bleeding. We will reassess. 2:25 PM-- Patient's repeat CBC shows a significant drop in her hemoglobin, now to 9.1. This is almost a 2 point drop in the period of 6.5 hours. Will attempt to speak with OBGYN Dr. Winter again from [facility]. I do have concern that she is not appropriate for discharge home at this time, as she is acutely bleeding vaginally, a my concern for vaginal hemorrhage is extremely high. Additionally, I do have concern this is all coming from her uterine fibroids, and she will need emergent or urgent intervention if she continues bleeding. 3:05 PM-- I was able to speak with Dr. Winter again, who is not currently at the [place] location therefore can not take the patient for transfer. She recommended I speak directly with PHARM TECH at [facility]. I then was able to speak with Dr. Zita RUTH from the women's clinic at [facility], who was agreeable to take the patient in transfer as we discussed the patient's case. I reassessed her again, she is more pale. Blood pressures are now soft in the low 100s systolically, tachycardia has since resolved. This may be due to her home medications being administered, or due to persistent blood loss due to her vaginal bleeding. However she appears unwell and pale. She tells me she feels very tired. She is agreeable with my plan to transfuse her with 1 unit of blood. We will do this, and initiate the transfer to [facility]. I discussed this with her extensively as I feel transfer is most appropriate as we cannot appropriately intervene here if her blood levels continue to drop and she becomes unstable. She is agreeable to transfer. She is on the phone with her , who also expresses understanding and agreement. [facility] ambulance booked by secretarial staff. Transfer to [facility], acceptance Dr. Ahumada. Patient consents to transfer. Paperwork signed. 3:34 PM-- I was informed that the patient's ALS ambulance has arrived before blood has been initiated. She will require transfusion upon arrival to [facility]. Differential Diagnosis Differential Diagnoses: The differential diagnosis associated with the presentation includes abnormal uterine bleeding, vaginal hemorrhage Admission/Observation Consideration of admission/observation: Escalation of care including admission/observation considered Will need transfer to [facility] for OBGYN, possible intervention. Consult Healthcare Provider Management of the patient was discussed with: Front End Application Developer (OBGYN at [facility]) [facility] Dr. Winter, transfer center [facility] Dr. Ahumada. Lab Data [facility] Lab Attestation statement: I reviewed the patient's lab results. (See [facility]) 04/13/25 13:47 04/13/25 07:45 Labs: Lab Results 04/13/25 04/13/25 04/13/25 Range/Units 07:31 07:45 07:47 WBC 7.5 (4.8-10.8) X10*3/uL RBC 4.37 D (4.20-5.50) X10*6/uL Hgb 10.8 L (12.0-16.0) g/dl Hct 34.1 L (37.0-47.0) % MCV 78.0 L (80.0-98.0) fL MCH 24.7 L (27.0-33.0) pg MCHC 31.7 (31.0-35.0) g/dl RDW 15.2 (11.0-16.0) % Plt Count 338 (160-400) X10*3/uL MPV 9.0 L (9.4-12.3) fL Immature Gran % (Auto) 1.3 H (0.0-0.4) % Neut % (Auto) 66.4 (45-73) % Lymph % (Auto) 23.4 (20-40) % [place] % (Auto) 7.5 (2-11) % Eos % (Auto) 0.7 (0-4) % Baso % (Auto) 0.7 (0-2) % Lymph # (Auto) 1.7 (1.2-4.9) X10*3/uL [place] # (Auto) 0.6 (0.1-1.2) X10*3/uL Eos # (Auto) 0.1 (0.0-0.4) X10*3/uL Baso # (Auto) 0.1 (0.0-0.2) X10*3/uL Abs Immat Gran (auto) 0.10 H (0.00-0.03) X10*3/uL Absolute Neuts (auto) 5.0 (2.0-8.3) x10*3/uL Absolute Nucleated RBC 0.000 (0.0-0.012) X10*3/uL Nucleated RBC % (auto) 0.0 (0.0-0.2) /100WBC PT 12.6 (11.2-13.5) SEC INR 1.0 (0.9-1.1) Sodium 139 (135-145) mmol/L Potassium 3.5 (3.3-5.1) mmol/L Chloride 109 H (96-108) mmol/L Carbon Dioxide 21 L (22-29) mmol/L Anion Gap 13 (12-20) BUN 15 (9-16) mg/dL Creatinine 0.89 (0.5-1.4) mg/dL Estim Creat Clear Calc 73.4 Estimated GFR > 60 POC Glucose 214 H (60-115) mg/dL Random Glucose 226 H (60-115) mg/dL Calcium 9.1 (8.4-10.2) mg/dL Total Bilirubin 0.4 (0.0-1.0) mg/dL AST 22 (5-31) U/L ALT 15 (0-31) U/L Alkaline Phosphatase 46 (39-117) U/L Total Protein 6.6 (6.5-8.0) g/dL Albumin 4.3 (3.5-5.0) g/dL Urine Color Urine Appearance Urine pH (5.0-9.0) Ur Specific Gattman (1.005-1.025) Urine Protein (Neg-Trace) mg/dL Urine Glucose (UA) (Negative) mg/dL Urine Ketones (Negative) mg/dL Urine Blood (Negative) Urine Nitrite (Negative) Ur Leukocyte Esterase (Negative) Urine RBC (0-2) /HPF Urine WBC (0-5) /HPF Ur Squamous Epith Cells (0-2) /HPF Urine Bacteria (None Seen) Hyaline Casts (0-2) /LPF Influenza Type A (PCR) NEGATIVE (Negative) Influenza Type B (PCR) NEGATIVE (Negative) RSV RNA Qual (PCR) NEGATIVE (Negative) SARS-CoV-2 RNA (RT-PCR) NEGATIVE (Negative) Blood Type Antibody Screen Crossmatch 04/13/25 04/13/25 04/13/25 Range/Units 08:01 09:52 13:47 WBC 8.6 8.1 (4.8-10.8) X10*3/uL RBC 4.23 3.62 L (4.20-5.50) X10*6/uL Hgb 10.4 L 9.1 L (12.0-16.0) g/dl Hct 32.2 L 28.5 L (37.0-47.0) % MCV 76.1 L 78.7 L (80.0-98.0) fL MCH 24.6 L 25.1 L (27.0-33.0) pg MCHC 32.3 31.9 (31.0-35.0) g/dl RDW 15.3 15.3 (11.0-16.0) % Plt Count 318 274 (160-400) X10*3/uL MPV 9.1 L 9.2 L (9.4-12.3) fL Immature Gran % (Auto) 0.9 H 0.7 H (0.0-0.4) % Neut % (Auto) 81.0 H 75.1 H (45-73) % Lymph % (Auto) 12.5 L 17.7 L (20-40) % [place] % (Auto) 5.1 5.8 (2-11) % Eos % (Auto) 0.1 0.2 (0-4) % Baso % (Auto) 0.4 0.5 (0-2) % Lymph # (Auto) 1.1 L 1.4 (1.2-4.9) X10*3/uL [place] # (Auto) 0.4 0.5 (0.1-1.2) X10*3/uL Eos # (Auto) 0.0 0.0 (0.0-0.4) X10*3/uL Baso # (Auto) 0.0 0.0 (0.0-0.2) X10*3/uL Abs Immat Gran (auto) 0.08 H 0.06 H (0.00-0.03) X10*3/uL Absolute Neuts (auto) 6.9 6.1 (2.0-8.3) x10*3/uL Absolute Nucleated RBC 0.000 0.000 (0.0-0.012) X10*3/uL Nucleated RBC % (auto) 0.0 0.0 (0.0-0.2) /100WBC PT (11.2-13.5) SEC INR (0.9-1.1) Sodium (135-145) mmol/L Potassium (3.3-5.1) mmol/L Chloride (96-108) mmol/L Carbon Dioxide (22-29) mmol/L Anion Gap (12-20) BUN (9-16) mg/dL Creatinine (0.5-1.4) mg/dL Estim Creat Clear Calc Estimated GFR POC Glucose (60-115) mg/dL Random Glucose (60-115) mg/dL Calcium (8.4-10.2) mg/dL Total Bilirubin (0.0-1.0) mg/dL AST (5-31) U/L ALT (0-31) U/L Alkaline Phosphatase (39-117) U/L Total Protein (6.5-8.0) g/dL Albumin (3.5-5.0) g/dL Urine Color Urine Appearance Urine pH (5.0-9.0) Ur Specific Gattman (1.005-1.025) Urine Protein (Neg-Trace) mg/dL Urine Glucose (UA) (Negative) mg/dL Urine Ketones (Negative) mg/dL Urine Blood (Negative) Urine Nitrite (Negative) Ur Leukocyte Esterase (Negative) Urine RBC (0-2) /HPF Urine WBC (0-5) /HPF Ur Squamous Epith Cells (0-2) /HPF Urine Bacteria (None Seen) Hyaline Casts (0-2) /LPF Influenza Type A (PCR) (Negative) Influenza Type B (PCR) (Negative) RSV RNA Qual (PCR) (Negative) SARS-CoV-2 RNA (RT-PCR) (Negative) Blood Type O Negative Antibody Screen NEGATIVE Crossmatch See Detail 04/13/25 Range/Units 13:55 WBC (4.8-10.8) X10*3/uL RBC (4.20-5.50) X10*6/uL Hgb (12.0-16.0) g/dl Hct (37.0-47.0) % MCV (80.0-98.0) fL MCH (27.0-33.0) pg MCHC (31.0-35.0) g/dl RDW (11.0-16.0) % Plt Count (160-400) X10*3/uL MPV (9.4-12.3) fL Immature Gran % (Auto) (0.0-0.4) % Neut % (Auto) (45-73) % Lymph % (Auto) (20-40) % [place] % (Auto) (2-11) % Eos % (Auto) (0-4) % Baso % (Auto) (0-2) % Lymph # (Auto) (1.2-4.9) X10*3/uL [place] # (Auto) (0.1-1.2) X10*3/uL Eos # (Auto) (0.0-0.4) X10*3/uL Baso # (Auto) (0.0-0.2) X10*3/uL Abs Immat Gran (auto) (0.00-0.03) X10*3/uL Absolute Neuts (auto) (2.0-8.3) x10*3/uL Absolute Nucleated RBC (0.0-0.012) X10*3/uL Nucleated RBC % (auto) (0.0-0.2) /100WBC PT (11.2-13.5) SEC INR (0.9-1.1) Sodium (135-145) mmol/L Potassium (3.3-5.1) mmol/L Chloride (96-108) mmol/L Carbon Dioxide (22-29) mmol/L Anion Gap (12-20) BUN (9-16) mg/dL Creatinine (0.5-1.4) mg/dL Estim Creat Clear Calc Estimated GFR POC Glucose (60-115) mg/dL Random Glucose (60-115) mg/dL Calcium (8.4-10.2) mg/dL Total Bilirubin (0.0-1.0) mg/dL AST (5-31) U/L ALT (0-31) U/L Alkaline Phosphatase (39-117) U/L Total Protein (6.5-8.0) g/dL Albumin (3.5-5.0) g/dL Urine Color Yellow Urine Appearance Clear Urine pH 5.0 (5.0-9.0) Ur Specific G[place]man 1.025 (1.005-1.025) Urine Protein Negative (Neg-Trace) mg/dL Urine Glucose (UA) >=1000 H (Negative) mg/dL Urine Ketones Trace (Negative) mg/dL Urine Blood Large (3+) H (Negative) Urine Nitrite Negative (Negative) Ur Leukocyte Esterase Negative (Negative) Urine RBC >20 H (0-2) /HPF Urine WBC 0-5 (0-5) /HPF Ur Squamous Epith Cells 0-2 (0-2) /HPF Urine Bacteria None Seen (None Seen) Hyaline Casts 0-2 (0-2) /LPF Influenza Type A (PCR) (Negative) Influenza Type B (PCR) (Negative) RSV RNA Qual (PCR) (Negative) SARS-CoV-2 RNA (RT-PCR) (Negative) Blood Type Antibody Screen Crossmatch Independent Interpretation I performed an independent interpretation of an: EKG Interpretation: Rate: 115 Rhythm:ST Barling: 48/0/42 Normal P waves. Normal DEMARIO. Normal QRS complex. ST T wave : no dep, elev qTC: 481 prior studies: none available. The study has been interpreted contemporaneously by me. External Record Review External record reviewed: Office record, Outpatient record, Prior outpatient labs, Prior outpatient radiology, Primary care record and Outside ED record Chronic Conditions Patient?s care impacted by: Other (AUB, Uterine Fibroids.) Social Determinants Patient?s care significantly limited by Social Determinants of Health including: Problems related to primary support group Discharge Plan Discharge Clinical Impression: Abnormal uterine bleeding, Vaginal hemorrhage, Anemia Patient Disposition: [facility] Transfer Details: [facility] -- Acceptance Dr. Ahumada Instructions: Abnormal (Dysfunctional) Uterine Bleeding (ED) Prescriptions: New tranexamic acid 650 mg tablet 1,300 mg PO TID 5 Days Qty: 30 0RF No Action medroxyprogesterone [Provera] 10 mg tablet 10 mg PO DAILY 90 Days Qty: 90 0RF Rx Instructions: start Provera 1 tablet daily metformin 1,000 mg tablet 1,000 mg PO BID 90 Days Qty: 180 1RF metoprolol tartrate 50 mg tablet 50 mg PO BID Qty: 180 1RF lisinopril-hydrochlorothiazide 20-12.5 mg tablet 1 tab PO DAILY Qty: 90 1RF Jardiance 25 mg tablet 25 mg PO QAM Qty: 90 1RF FA-vit Mmmpf-B-ctwg-vitamin D3 0.8-2,000 mg-unit tablet PO Referrals: [facility] [employer] Group [Provider Group] Mady Boothe MD [Primary Care Provider, Internal Medicine] Print Language: Maltese
[2025-04-13 07:49] LABS: MANUAL DIFF FLAG NO
[2025-04-13 07:54] LABS: Hematocrit 34.1 % (37.0-47.0); Hemoglobin 10.8 g/dl (12.0-16.0); Imm Gran Abs Auto 0.10 X10*3/uL (0.00-0.03); Imm Gran Pct Auto 1.3 % (0.0-0.4); Lymphocytes Absolute Auto 1.7 X10*3/uL (1.2-4.9); Mean Corpuscular HGB Conc 31.7 g/dl (31.0-35.0); Mean Corpuscular Hemoglobin 24.7 pg (27.0-33.0); Mean Corpuscular Volume 78.0 fL (80.0-98.0); NRBC Abs Auto 0.000 X10*3/uL (0.0-0.012); NRBC Pct Auto 0.0 /100WBC (0.0-0.2); Platelet Count 338 X10*3/uL (160-400); Red Blood Count 4.37 X10*6/uL (4.20-5.50); White Blood Count 7.5 X10*3/uL (4.8-10.8)
[2025-04-13 07:58] LABS: INTERNATIONAL NORM RATIO 1.0 (0.9-1.1); Prothrombin Time 12.6 SEC (11.2-13.5)
--- OUTSIDE RECORDS SUMMARY | 2025-04-13 08:02 | XMS_ITS | Clinical Summary ---
Author Organization [facility] Address [address] [place], [place] [id number] Phone Care Team Providers Care Residential Mortgage Underwriter Name Role Phone Pcp, Unknown Primary Care [...] topic Medical Devices Not on file Insurance [place] [employer] [place] [employer] [address] [place] [address] [employer]MIN[employer]ATORS [employer]MINIST[employer]ATORS [facility] BENEFITS ADMINISTRATORS Care Teams Residential Mortgage Underwriter Relationship Specialty Start Date End Date Pcp, Unknown PCP - General 03/27/23 Additional Source Comments The information contained in this document represents components of the legal health record. It is not the complete legal health record.[facility]
--- OUTSIDE RECORDS SUMMARY | 2025-04-13 08:02 | XMS_ITS | Encounter Summary ---
Author Organization [facility] Address [address] [address] Phone Care Team Providers Care Worship Leader Name Role Phone Pcp, Unknown Primary Care Provider Unavailabl e Encounter Details Date Type Department Care Team (Late st Contact Info) Description 03/27/2023 Procedure Pass [facility], [address] [address] Social History Tobacco Use Types Packs/Day Years [...] on filedocumented in this encounter Care Teams Worship Leader Relationship Specialty Start Date End Date Pcp, Unknown PCP - General 03/27/23 documented as of this encounter Additional Source Comments The information contained in this document represents components of the legal health record. It is not the complete legal health record.[facility]
--- OUTSIDE RECORDS SUMMARY | 2025-04-13 08:02 | XMS_ITS | Clinical Summary ---
Author Organization Patient Business Ser [facility] Address [address] [place] [address] Care Team Providers Care Government Contracts Manager Name Role Phone Sandra Faith MD Primary Care Provider [phone] Surgical History Surgery Date Site/Laterality Comments OTHER [...] age to complete this topic Care Teams Government Contracts Manager Relationship Specialty Start Date End Date Sandra Faith MD PCP - General Internal Medicine 06/09/18
--- OUTSIDE RECORDS SUMMARY | 2025-04-13 08:02 | XMS_ITS | Clinical Summary ---
Author Organization [facility] Address [address] [place] [address] Care Team Providers Care Time Analysis Clerk Name Role Phone Sandra Faith Primary Care Provider [phone] Allergies No known active allergies Medications atovaquone-prog [...] Tdap) 11/16/2020 11/16/2010 Alcohol/Substance Use Screening 04/21/2024 Influenza Vaccine (#1) 2024 Pneumococcal Vaccine: 50+ Years (1 of 1 - PCV) 025 Zoster Vaccines (1 of 2) 2024 COVID-19 Vaccine (1 - season) 2024 Insurance [employer] Care Teams Time Analysis Clerk Relationship Specialty Start Date End Date [address] [address] PCP - General 10/02/20
[2025-04-13 08:09] LABS: Alanine Aminotransferase 15 U/L (0-31); Albumin Level 4.3 g/dL (3.5-5.0); Alkaline Phosphatase 46 U/L (39-117); Anion Gap 13 (12-20); Aspartate Amino Transferase 22 U/L (5-31); Blood Urea Nitrogen 15 mg/dL (9-16); Calcium 9.1 mg/dL (8.4-10.2); Carbon Dioxide 21 mmol/L (22-29); Chloride 109 mmol/L (96-108); Creatinine Clr Calc Pharmacy 73.4; Estimated Glomerular Filt Rate > 60; Potassium 3.5 mmol/L (3.3-5.1); Sodium 139 mmol/L (135-145); Total Protein 6.6 g/dL (6.5-8.0)
[2025-04-13 08:35] LABS: Resp Syncy Virus RNA Qual PCR NEGATIVE (Negative); SARS COV2 PCR INHOUSE NEGATIVE (Negative)
[2025-04-13 09:45] VITALS: BP 118/80; PULSE 124; RESP 16; TEMP 36.9; O2SAT 98
[2025-04-13 09:57] LABS: MANUAL DIFF FLAG NO
--- NOTE | 2025-04-13 09:59 | PC.NURSE ---
Pt states has changed pad 3 times since arriving in ED. States most recent change was not saturated, more so large clots about the size of golf ball . Pt tachycardic to 120s-130s. IVF started after redraw of CBC.
[2025-04-13 10:05] LABS: Hematocrit 32.2 % (37.0-47.0); Hemoglobin 10.4 g/dl (12.0-16.0); Imm Gran Abs Auto 0.08 X10*3/uL (0.00-0.03); Imm Gran Pct Auto 0.9 % (0.0-0.4); Lymphocytes Absolute Auto 1.1 X10*3/uL (1.2-4.9); Mean Corpuscular HGB Conc 32.3 g/dl (31.0-35.0); Mean Corpuscular Hemoglobin 24.6 pg (27.0-33.0); Mean Corpuscular Volume 76.1 fL (80.0-98.0); NRBC Abs Auto 0.000 X10*3/uL (0.0-0.012); NRBC Pct Auto 0.0 /100WBC (0.0-0.2); Platelet Count 318 X10*3/uL (160-400); Red Blood Count 4.23 X10*6/uL (4.20-5.50); White Blood Count 8.6 X10*3/uL (4.8-10.8)
--- NOTE | 2025-04-13 10:25 | PC.NURSE ---
This RN present with Zayda, MOLD STAMPER for cervical exam. Pt with large amount of clots and bleeding
[2025-04-13 10:42] VITALS: BP 145/89; PULSE 112; RESP 16; O2SAT 100
--- NOTE | 2025-04-13 12:22 | ECG_ITS ---
Test Reason : tachy Blood Pressure : */* mmHG Vent. Rate : 115 BPM Atrial Rate : 115 BPM P-R Int : 128 ms QRS Dur : 70 ms QT Int : 348 ms P-R-T Axes : 48 0 42 degrees QTcB Int : 481 ms Sinus tachycardia Cannot rule out Inferior infarct , age undetermined Cannot rule out Anterior infarct , age undetermined Abnormal ECG No previous ECGs available Referred By: Drea Frost Electronically Signed By: LEONILA MARSHALL MD
[2025-04-13 13:23] VITALS: BP 137/87; PULSE 124; RESP 16; O2SAT 100
--- NOTE | 2025-04-13 13:27 | PC.NURSE ---
PT sat up to edge of bed and became short of breath, tachycardic and flushed. Pt states she did not take her home BP meds of Metoprolol, HCTZ and Lisinopril. AMRIK Priest made aware. Plan to redraw CBC and give home meds.
[2025-04-13 13:50] LABS: MANUAL DIFF FLAG NO
[2025-04-13 14:00] LABS: Hematocrit 28.5 % (37.0-47.0); Hemoglobin 9.1 g/dl (12.0-16.0); Imm Gran Abs Auto 0.06 X10*3/uL (0.00-0.03); Imm Gran Pct Auto 0.7 % (0.0-0.4); Lymphocytes Absolute Auto 1.4 X10*3/uL (1.2-4.9); Mean Corpuscular HGB Conc 31.9 g/dl (31.0-35.0); Mean Corpuscular Hemoglobin 25.1 pg (27.0-33.0); Mean Corpuscular Volume 78.7 fL (80.0-98.0); NRBC Abs Auto 0.000 X10*3/uL (0.0-0.012); NRBC Pct Auto 0.0 /100WBC (0.0-0.2); Platelet Count 274 X10*3/uL (160-400); Red Blood Count 3.62 X10*6/uL (4.20-5.50); White Blood Count 8.1 X10*3/uL (4.8-10.8)
[2025-04-13 14:06] LABS: Appearance Urine Clear; Glucose Urine UA >=1000 mg/dL (Negative); PH 5.0 (5.0-9.0); Specific Gravity - Urine 1.025 (1.005-1.025); UMIC TRIGGER UACC YES
[2025-04-13 14:34] VITALS: BP 104/73; PULSE 94; RESP 16; TEMP 37.1; O2SAT 97
--- NOTE | 2025-04-13 16:44 | PC.NURSE ---
RN to RN piotr Estrada at [facility]
== END 2025-04-13 15:15 | disposition short-term general hospital (02) ==
PROVIDERS: Nurse Practitioner; Emergency Provider Emergency Medicine; PCP Internal Medicine
DX: N93.9 Abnormal uterine and vaginal bleeding, unspecified (principal); D64.9 Anemia, unspecified; Z03.818 Encounter for observation for suspected exposure to other biological agents ruled out; E11.9 Type 2 diabetes mellitus without complications; I10 Essential (primary) hypertension; E78.5 Hyperlipidemia, unspecified; Z79.899 Other long term (current) drug therapy; Z79.84 Long term (current) use of oral hypoglycemic drugs
CPT/HCPCS: 36415; 80053; 81001; 81003; 82947; 85025; 85610; 86850; 86900; 86901; 86923; 87637; 93005; 96360; 96361; 99285

== ENCOUNTER → 2025-04-13 12:22 | Outpatient (BNV) | payer OTHER, SELFPAY | PROVIDERS: Emergency Provider Emergency Medicine; PCP Internal Medicine; Visit Provider Internal Medicine Cardiovascular Disease | DX: R00.0 Tachycardia, unspecified (principal) | CPT/HCPCS: 93010 ==